=== PATIENT | female | born 1955 | race Caucasian/White ===

== ENCOUNTER 2022-09-19 11:31 | Emergency (ER) | payer MEDICARE, SELFPAY ==
--- NOTE | 2022-09-19 11:35 | ED.BACK ---
HPI - Back Pain/Injury General Chief Complaint: Back Pain/Injury Stated Complaint: Pain in back, post surgery Time Seen by Provider: 09/19/22 12:55 Source: patient and RN notes reviewed Mode of arrival: ambulatory Limitations: no limitations History of Present Illness HPI Narrative: 66-year-old female presents concern for back pain. She reports she had back pain that began on August 31 after she picked up a jar of coins. 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 She reports she has been seen in another urgent care and other ER for this back pain, she was given muscle relaxer that she said did not help then she was given steroids that she said did not help. During these visits she had an x-ray and a CT scan respectively. She reports those did not show any cause for her pain. She reports the pain is ?relentless? she reports the pain is right thoracic. She reports she can find positions that are comfortable, she still has pain but it is not as severe. She denies any direct trauma, injury. She denies cough or shortness of breath. She denies perianal anesthesia, loss of bowel or bladder function. Patient is from [place], she is here for visiting for quite some time, she does not have a primary care doctor here. MD elicited complaint: back pain Related Data Home Medications Medication Instructions Recorded Confirmed Caltrate 09/19/22 Centrum Silver Women 09/19/22 amiodarone 200 mg tablet mg 09/19/22 apixaban 5 mg tablet (Eliquis) mg 09/19/22 aspirin 81 mg tablet,delayed mg 09/19/22 release atorvastatin 09/19/22 09/19/22 buspirone 5 mg tablet mg 09/19/22 clopidogrel 75 mg tablet mg 09/19/22 diazepam 5 mg tablet mg 09/19/22 fluticasone furoate 100 inhalation 09/19/22 mcg-vilanterol 25 mcg/dose inhalation powder (Breo Ellipta) furosemide 40 mg tablet mg 09/19/22 metoprolol succinate 25 mg mg PO 09/19/22 tablet,extended release 24 hr potassium 09/19/22 Allergies Allergy/AdvReac Type Severity Reaction Status Date / Time MICHAELLE Inhibitors Allergy Unknown Unknown Verified 09/19/22 11:35 Review of Systems Review of Systems: CONSTITUTIONAL: Denies malaise, chills, sweats, or fever. CARDIOVASCULAR: Denies chest pain, palpitations, or edema. RESPIRATORY: Denies cough or dyspnea. GASTROINTESTINAL: Denies abdominal pain, nausea, vomiting, diarrhea, loss of bowel function GENITOURINARY: Denies dysuria, hematuria, frequency, loss of bladder function. SKIN: Denies rash or itching. MUSCULOSKELETAL: Reports mid right back pain NEUROLOGIC: Denies numbness, weakness, or headache. All systems reviewed & are unremarkable except as noted in HPI and below [facility] Family History Family History (Updated 01/11/14 @ 07:13 by DOCTOR UNKNOWN) Father Family history of heart disease in male family member before age 55 Family history of coronary artery disease Sibling Hypertension Other Cerebrovascular accident Social History Social History Alcohol intake: current Comments At time of signature, agree with nursing past medical, surgical, social and family history. There is no relevant family history pertinent to the presenting complaint Exam Narrative: GENERAL: Nontoxic appearing and in no acute distress. HEAD: Normocephalic, atraumatic. EYES: PERRLA and EOMI. NECK: Supple. No lymphadenopathy. CHEST: Clear to auscultation. No respiratory distress. HEART: Regular rate and rhythm. Distal pulses palpable and equal, cap refill <3 seconds ABDOMEN: Soft, nontender, nondistended, normal active bowel sounds, no palpable or pulsatile masses. No CVA tenderness MUSCULOSKELETAL: Patient is not cooperative enough to do full exam, she says she is unable to because of her pain. However patient was observed sitting up from a lying position, then standing up in using her walker to
[2022-09-19 11:54] VITALS: BP 103/54; PULSE 80; RESP 16; TEMP 37.3; O2SAT 95
== END 2022-09-19 13:11 | disposition home or self-care (01) ==
PROVIDERS: Emergency Provider Nurse Practitioner
DX: M54.9 Dorsalgia, unspecified (principal); Z98.890 Other specified postprocedural states
CPT/HCPCS: 99213; G0463

== ENCOUNTER 2022-12-12 10:54 | Outpatient (CLI) | payer MEDICARE, SELFPAY ==
[2022-12-12 11:16] LABS: Basophils Percent Auto 0.6 % (0.2-1.2); Eosinophils Percent Auto 0.8 % (0-4.4); Immature Granulocyte Absolute 0.01 K/mm3 (0.00-0.031); Immature Granulocyte Percent A 0.2 % (0-0.5); Lymphocytes Absolute Auto 1.06 K/mm3 (0.9-3.2); Lymphocytes Percent Auto 20.9 % (18.3-44.2); Mean Corpuscular Hemoglobin 18.1 pg (26-34); Mean Corpuscular Volume 72.6 fl (80-100); Mean Platelet Volume 9.8 fl (7.4-10.4); Monocytes Absolute Auto 0.6 K/mm3 (0.1-0.6); Monocytes Percent Auto 11.4 % (2.6-8.5); Neutrophils Absolute Auto 3.4 K/mm3 (1.3-6.7); Neutrophils Percent Auto 66.1 % (45.5-73.1); Nucleated Red Blood Cells Perc 0.4 % (0.0-0.2); Platelet Count Result 261 k/mm3 (150-375); Red Cell Distribution Width 18.2 % (11.5-14.5); White Blood Count 5.1 K/mm3 (4.5-10.0)
[2022-12-12 11:30] LABS: Anion Gap 8 mmol/L (8-16); Blood Urea Nitrogen 13 mg/dL (7-17); Calcium 8.4 mg/dL (8.4-10.2); Carbon Dioxide 25 mmol/L (22-30); Chloride 102 mmol/L (98-107); Estimated Glomerular Filt Rate > 60; Glucose 90 mg/dL (65-110); Potassium 3.8 mmol/L (3.4-5.0); Sodium 135 mmol/L (137-145)
[2022-12-12 11:41] LABS: Hematocrit 19.6 % (37.0-47.0); Hemoglobin 4.9 g/dL (12.0-15.0)
[2022-12-12 11:42] LABS: Platelet Estimate Adequate (Adequate)
[2022-12-12 11:43] LABS: Anisocytosis 1+ (NORMAL); Hypochromasia 2+ (NORMAL); Microcytosis 2+ (NORMAL); Schistocytes None Seen (NORMAL); Stomatocytes 1+ (NORMAL)
== END 2022-12-12 10:55 | disposition home or self-care (01) ==
PROVIDERS: PCP Physician Assistant; Visit Provider Internal Medicine Cardiovascular Disease
DX: I48.0 Paroxysmal atrial fibrillation (principal); Z79.01 Long term (current) use of anticoagulants; Z79.890 Hormone replacement therapy
CPT/HCPCS: 36415; 80048; 85025

== ENCOUNTER 2022-12-12 13:23 | Inpatient (IN) | payer MEDICARE, SELFPAY ==
[2022-12-12] VITALS (32 sets, daily range): BP systolic 106–166; BP diastolic 52–88; PULSE 58–76; RESP 13–21; TEMP 36.1–36.7; O2SAT 94–100; BMI 21.1
--- NOTE | ~2022-12-12 | CT_ITS ---
EXAMINATION: CT abdomen pelvis w con DATE: 12/12/2022 14:50 INDICATION: LGIB, constipation, anemia, weakness TECHNIQUE: Computed tomography (CT) of the abdomen and pelvis was performed with 100 mL Omnipaque-350 intravenous contrast. Automated exposure control and iterative reconstruction technique were employe d. The dose-length product was 178.99 mGy-cm. COMPARISON: 08/02/2011. FINDINGS: Lower thorax: Lingular scar/atelectasis. Mild bibasilar dependent scar/atelectasis. Mitral valve repl acement. Mild cardiomegaly. Liver: Normal. Biliary/Gallbladder: Gallbladder is normal. No bile duct dilation. Pancreas: No mass or duct dilation. Spleen: Normal. Adrenals:No mass. Kidneys: No mass, stone, or hydronephrosis. GI tract: Mild distal esophageal and gastric wall edema. No small or large bowel dilation. Appendix n ot visualized. Diverticulosis without diverticulitis. Mesentery/Peritoneum: No ascites, mass, or free air. Retroperitoneum: No mass. Atherosclerotic abdominal aortic and/or arterial calcifications. Pelvis: Uterus surgically absent. Wall thickening in a moderately distended urinary bladder. Soft Tissues: Small uncomplicated fat-containing infraumbilical and bilateral inguinal hernias. Bones: No acute osseous finding. IMPRESSION: Esophagitis/gastritis. Possible cystitis. No other acute abdominopelvic process detected. Reviewed, dictated and finalized at location K.
--- NOTE | 2022-12-12 13:33 | ECG_ITS ---
Measurements Intervals [place] Rate: 64 P: 60 PA: 157 QRS: 30 QRSD: 92 T: -1 QT: 454 QTc: 471 Interpretive Statements SINUS RHYTHM NONSPECIFIC ST & T-WAVE ABNORMALITY- ANT/INF LEADS BORDERLINE ECG NO PREVIOUS ECG AVAILABLE FOR COMPARISON Electronically Signed On 12-12-2022 17:31:04 CDT by Jose White D.O.
[2022-12-12 14:04] LABS: Basophils Percent Auto 0.3 % (0.2-1.2); Eosinophils Percent Auto 0.3 % (0-4.4); Immature Granulocyte Absolute 0.03 K/mm3 (0.00-0.031); Immature Granulocyte Percent A 0.5 % (0-0.5); Lymphocytes Absolute Auto 0.94 K/mm3 (0.9-3.2); Lymphocytes Percent Auto 16.4 % (18.3-44.2); Mean Corpuscular HGB Conc 25.9 g/dl (32-36); Mean Corpuscular Hemoglobin 18.8 pg (26-34); Mean Corpuscular Volume 72.5 fl (80-100); Mean Platelet Volume 10.1 fl (7.4-10.4); Monocytes Absolute Auto 0.5 K/mm3 (0.1-0.6); Monocytes Percent Auto 8.9 % (2.6-8.5); Neutrophils Absolute Auto 4.2 K/mm3 (1.3-6.7); Neutrophils Percent Auto 73.6 % (45.5-73.1); Nucleated Red Blood Cells Perc 0.3 % (0.0-0.2); Platelet Count Result 251 k/mm3 (150-375); Red Cell Distribution Width 18.3 % (11.5-14.5); White Blood Count 5.7 K/mm3 (4.5-10.0)
[2022-12-12 14:14] LABS: INR 1.4; Prothrombin Time 17.6 Seconds (11.1-14.7)
[2022-12-12 14:15] LABS: Partial Thromboplastin Time 28.7 SECONDS (22.3-36.8)
[2022-12-12 14:16] LABS: Alanine Aminotransferase 39 U/L (6-35); Alkaline Phosphatase 73 U/L (38-126); Anion Gap 9 mmol/L (8-16); Aspartate Amino Transferase 56 U/L (14-36); Bilirubin,Total 0.6 mg/dL (0.2-1.3); Blood Urea Nitrogen 13 mg/dL (7-17); Calcium 8.3 mg/dL (8.4-10.2); Carbon Dioxide 24 mmol/L (22-30); Chloride 102 mmol/L (98-107); Estimated CRCL calculation 48 ml/min; Estimated Glomerular Filt Rate > 60; Glucose 103 mg/dL (65-110); Potassium 4.1 mmol/L (3.4-5.0); Sodium 135 mmol/L (137-145)
[2022-12-12 14:19] LABS: Hemoglobin 4.5 g/dL (12.0-15.0)
[2022-12-12 14:20] LABS: Anisocytosis 2+ (NORMAL); Hematocrit 17.4 % (37.0-47.0); Hypochromasia 2+ (NORMAL); Microcytosis 2+ (NORMAL); Platelet Estimate Adequate (Adequate)
[2022-12-12 14:21] LABS: Ovalocytes 1+ (NORMAL); Schistocytes None Seen (NORMAL)
--- NOTE | 2022-12-12 15:04 | ED.RECABL ---
HPI - Recheck/Abnormal Lab/Rx General Chief Complaint: Recheck/Abnormal Lab/Rx Stated Complaint: severe anemia Time Seen by Provider: 12/12/22 13:42 History of Present Illness HPI narrative: I received a call from Dr Padron for patient he was sending to the ER w/ Hgb 4.9. She tells me that for the last few months, she has been feeling more weak and tired and unwell, with some shortness of breath, she had had CABG and aortic valve replacement at outside hospital about 2 years ago, and constipation. She also has chronic back pain and she states that she has gone to multiple different ERs and urgent cares for the back pain. No nausea or vomiting, does not think that her stool has been dark but does state that she has had constipation despite trying Ex-Lax Related Data Home Medications Medication Instructions Recorded Confirmed Caltrate 09/19/22 10/14/22 Centrum Silver Women 09/19/22 10/14/22 amiodarone 200 mg tablet mg 09/19/22 10/14/22 apixaban 5 mg tablet (Eliquis) mg 09/19/22 10/14/22 aspirin 81 mg tablet,delayed mg 09/19/22 10/14/22 release clopidogrel 75 mg tablet mg 09/19/22 10/14/22 diazepam 5 mg tablet mg 09/19/22 10/14/22 furosemide 40 mg tablet mg 09/19/22 10/14/22 metoprolol succinate 25 mg mg PO 09/19/22 10/14/22 tablet,extended release 24 hr potassium 09/19/22 10/14/22 atorvastatin PO 10/14/22 10/14/22 Allergies Allergy/AdvReac Type Severity Reaction Status Date / Time MICHAELLE Inhibitors Allergy Unknown Unknown Verified 10/14/22 13:32 Review of Systems Review of Systems: CONST: Fatigue and generalized weakness HEENT: No sore throat C/V: No chest pain RESP: Shortness of breath on exertion GI: Constipation : No dysuria. M/S: No joint pain. SKIN: No rash. NEURO: [No headache or focal numbness or weakness] PSYCH: [No depression] [facility] Past Medical History Medical History Anxiety Hypertension Family History Family History Father Family history of heart disease in male family member before age 55 Family history of coronary artery disease Sibling Hypertension Other Cerebrovascular accident Social History Social History Smoking packs per day: 1.5 Smoking cigarettes per day: 30.0 Smoking status: Current every day smoker Alcohol intake: former Substance use: unknown Lack of Transportation: YES Lack of Food: Sometimes True Difficulty Paying Gas/Electric Bills: No Difficulty Paying for Meds: No Currently Unemployed: No Education: High School Diploma/GED Difficulty w/ Childcare or Family Care: No Exam Narrative: EXAMINATION OF ORGAN SYSTEMS/BODY AREAS: Constitutional: Vital signs per nursing GENERAL: Appears pale and tired HEAD: Normal with no signs of head trauma. EYES: Pale conjunctiva ENT: Pale mucous membranes LUNGS: Nonlabored breathing. HEART: [Regular rate and rhythm] ABD: [Soft], [nontender to palpation] RECTAL: Brown stool that is hemoccult positive EXT: Normal range of motion SKIN: Pallor NEURO: [Alert and oriented x 3. No gross focal sensory or strength deficits.] PSYCH: Normal affect Course Vital Signs Vital signs: Vital Signs Temperature 97.8 F 12/12/22 13:26 Respiratory Rate 16 12/12/22 13:26 Blood Pressure 125/52 L 12/12/22 13:26 Pulse Oximetry 100 12/12/22 13:26 Oxygen Delivery Room Air 12/12/22 13:26 Temperature 97.2 F L 12/12/22 15:58 Pulse Rate 63 12/12/22 17:26 Respiratory Rate 20 12/12/22 17:26 Blood Pressure 138/70 12/12/22 17:26 Pulse Oximetry 96 12/12/22 17:26 Oxygen Delivery Room Air 12/12/22 13:26 MDM - Recheck/Abnormal Lab/Rx MDM Narrative Medical decision making narrative: 67-year-old female presenting here after being found to have low hemoglobin, she tells me that she has been noticing constipation and general
[2022-12-12] MEDS: PANTOPRAZOLE SODIUM IV 40 MG VIAL IV PUSH (15:36)
[2022-12-12] MEDS: SODIUM CHLORIDE 0.9% IV 250 ML 30 ML IV CONT (15:37)
--- NOTE | 2022-12-12 16:02 | PM.IMHP ---
H&P: HPI History of Present Illness Date/Time: 12/12/22 19:45 Chief Complaint: Low hemoglobin. Narrative: This is a pleasant 67-year-old female smoker with history of 2 vessel bypass and bioprosthetic mitral valve replacement 2 years ago, paroxysmal atrial fibrillation on chronic anticoagulation, chronic obstructive pulmonary disease, depression, and anxiety who presented to the emergency department for evaluation after she was found to have low hemoglobin on labs drawn earlier this morning. The patient provides the following history. She recently moved to the area and established care with Dr. Schulz's office. She was referred to Dr. Padron given her cardiac history and she had routine labs done this morning in anticipation of an upcoming appointment. Not long after she had her lab drawn she received a phone call that she needed to come to the ER as she was very anemic. Hemoglobin/hematocrit on arrival today were 4.5 and 17.4% respectively. With further questioning she has not been feeling well for several months with generalized fatigue, weakness, and increasing shortness of breath from baseline. She has not noticed any dark stools and fact she complains of being a bit constipated. She has not noticed any dark stools or bright red blood in the stools. She does have occasional GERD symptoms and reports that they have been much worse the last several weeks and she has been taking Tums on a daily basis. She is on apixaban and clopidogrel at home. She denies ibuprofen use. No significant caffeine or alcohol use. She has no known history of peptic ulcers. At the time my evaluation she is resting comfortably and is currently receiving her 3rd unit of blood. She feels may be a bit short of breath and has mild crackles on exam. Review of Systems Review of Systems: Twelve systems were reviewed. No fever, chills, sweats. No recent cold or flu symptoms. No chest pain. She denies vomiting. Except as documented, all other systems were reviewed and are negative. [facility] Past Medical History Medical History (Updated 12/13/22 @ 15:29 by Hannah Wong PA-C) Anxiety Chronic anticoagulation Chronic obstructive pulmonary disease Coronary artery disease Hypertension Paroxysmal atrial fibrillation Tobacco dependence Surgical History Surgical History (Updated 12/12/22 @ 23:42 by Hannah Wong PA-C) History of cardiac catheterization History of coronary artery bypass graft x 2 History of incisional hernia repair (09/2011) History of mitral valve replacement with bioprosthetic valve History of stress incontinence procedure using tension free vaginal tape (2002) History of tonsillectomy History of total abdominal hysterectomy and bilateral salpingo-oophorectomy (2002) History of tubal ligation Family History Family History Father Family history of heart disease in male family member before age 55 Family history of coronary artery disease Sibling Hypertension Other Cerebrovascular accident Social History Social History (Updated 12/12/22 @ 23:41 by Hannah Wong PA-C) Social History: Surrogate medical decision maker: Codi Calle, son. Code status: Full code. Smoking packs per day: 1.5 Smoking cigarettes per day: 30.0 Smoking status: Current every day smoker Additional smoking assessment comments: Has smoked up to 2 packs a day. Alcohol intake: former Substance use: never Lack of Transportation: YES Lack of Food: Never True Current Housing: I Have Housing Concerned About Future Housing: No Difficulty Paying Gas/Electric Bills: No Difficulty Paying for Meds: No Currently Unemployed: No Education: High School Diploma/GED Difficulty w/ Childcare or Family Care: No Additional living arrangements comments: Recently moved back to the area, currently staying with her ex-. Spiritual care concerns: No Meds Home Medications
[2022-12-12 16:09] LABS: Iron 16 ug/dL (37-170)
[2022-12-12 16:18] LABS: Percent Iron Saturation 3 % (20-50)
[2022-12-12 16:45] LABS: Ferritin 7.45 ng/mL (11.1-264)
[2022-12-12 17:20] LABS: Folic Acid > 20.0 ng/mL (2.76->20)
--- NOTE | 2022-12-12 18:00 | ADMGEN ---
This patient, Maci Garcia, was admitted to Medical Room 253-01. Patient/family oriented to hospital policies and general routines including ID bracelet, bed and alarms, visiting hours, pain management, procedures, bathroom and other care routines, personal items, smoking policy, room service/diet, and visiting hours. Information on how to activate the Rapid Response Team has been discussed. Patient/Family are encouraged to report perceived risks to care and to ask questions if they do not understand what they are told or what they should do.
[2022-12-12] MEDS: ZOLPIDEM TARTRATE (*CRX) 5 MG TABLET PO (23:10)
[2022-12-12] MEDS: ACETAMINOPHEN 325 MG TABLET 650 MG PO (23:10)
[2022-12-12] MEDS: FUROSEMIDE INJ 40 MG/4 ML VIAL 20 MG IV PUSH (23:10)
[2022-12-12] MEDS: ATORVASTATIN 40 MG TABLET 80 MG PO (23:11)
[2022-12-13] VITALS (7 sets, daily range): BP systolic 102–147; BP diastolic 61–88; PULSE 62–80; RESP 17–22; TEMP 36.2–37.1; O2SAT 98–100
[2022-12-13 00:40] LABS: Appearance Urine Clear (Clear); Bacteria Urine None Seen /hpf; Bilirubin Urine Negative (Negative); Blood Urine Negative (Negative); Color Urine Yellow (Yellow); Glucose Urine UA Negative (Negative); Ketones Urine Trace mg/dL (Negative); Leukocyte Esterase Ur 1+ LEU/UL (Negative); Nitrate Urine Negative (Negative); Non Pathogenic Casts 0-2; Protein Urine Negative (Negative); RBC Urine 0-2 /hpf (0-2); Squamous Epithelial Cell Urine None seen /hpf (Few); WBC Urine 21-50 /hpf; pH Urine 6.5 (5.0-9.0)
[2022-12-13 00:42] LABS: Specific Grav Ur 1.073 (1.001-1.035)
[2022-12-13] MEDS: LORazepam INJ (*CRX) 2 MG/ML VIAL 1 MG IV PUSH (00:46)
[2022-12-13 01:08] LABS: Add Urine Microscopic? YES
[2022-12-13 02:17] LABS: Hematocrit 36.1 % (37.0-47.0); Hemoglobin 10.7 g/dL (12.0-15.0); Mean Corpuscular HGB Conc 29.6 g/dl (32-36); Mean Corpuscular Hemoglobin 24.1 pg (26-34); Mean Corpuscular Volume 81.3 fl (80-100); Platelet Count Result 213 k/mm3 (150-375); Red Blood Count 4.44 M/mm3 (4.2-5.4); Red Cell Distribution Width 19.2 % (11.5-14.5); White Blood Count 8.8 K/mm3 (4.5-10.0)
[2022-12-13 02:30] LABS: Alanine Aminotransferase 43 U/L (6-35); Alkaline Phosphatase 90 U/L (38-126); Anion Gap 8 mmol/L (8-16); Aspartate Amino Transferase 62 U/L (14-36); Bilirubin,Total 0.7 mg/dL (0.2-1.3); Blood Urea Nitrogen 12 mg/dL (7-17); Calcium 8.1 mg/dL (8.4-10.2); Carbon Dioxide 26 mmol/L (22-30); Chloride 102 mmol/L (98-107); Estimated CRCL calculation 49 ml/min; Estimated Glomerular Filt Rate > 60; Glucose 131 mg/dL (65-110); Magnesium 1.9 mg/dL (1.6-2.3); Potassium 3.4 mmol/L (3.4-5.0); Sodium 136 mmol/L (137-145)
[2022-12-13 04:31] LABS: Free T4 Free Thyroxine Reflex 1.86 ng/dL (0.78-2.19)
--- NOTE | 2022-12-13 07:38 | PM.IMPN ---
Progress Note: A&P Assessment and Plan (1) GI bleed: Code(s): K92.2 - Gastrointestinal hemorrhage, unspecified Status: Acute Assessment and Plan: Hemoglobin 4.9/ hematocrit 19.6 on admission -shortness of breath, weakness, and fatigue present -received 3 units of pRBC -On xarelto and plavix at home. Holding currently. -No overt signs of bleeding but complains of increased GERD symptoms of the last month or so with increased TUMS usage. -says she intermittently uses Aleve and Excedrin for chronic back pain. Discussed NSAIDs and risk of GI bleed. -Consult placed with GI. Plan for scope tomorrow -Trend H/H -VS reviewed and stable (2) Profound anemia: Code(s): D64.9 - Anemia, unspecified Status: Acute Assessment and Plan: Pre-transfusion labs for anemia: Fe 16 TIBC 544 % Saturation 3L Ferritin 7.45 Folate > 20 Vitamin B12 normal at 721 (3) Esophagitis: Code(s): K20.90 - Esophagitis, unspecified without bleeding Status: Acute Assessment and Plan: Protonix 40 mg IV b.i.d. ordered (4) Coronary artery disease: Code(s): I25.10 - Atherosclerotic heart disease of [place] coronary artery without angina pectoris Status: Acute Assessment and Plan: On high-dose atorvastatin Check a lipid panel (5) Paroxysmal atrial fibrillation: Code(s): I48.0 - Paroxysmal atrial fibrillation Status: Acute Assessment and Plan: Rate controlled with metoprolol and anticoagulated with Eliquis (Eliquis on hold because of bleeding) (6) Chronic obstructive pulmonary disease: Code(s): J44.9 - Chronic obstructive pulmonary disease, unspecified Status: Acute Assessment and Plan: Does not normally use oxygen Well controlled With inhalers ordered (7) Tobacco dependence: Code(s): F17.200 - Nicotine dependence, unspecified, uncomplicated Status: Acute Assessment and Plan: Can order nicotine patch if patient request [employer] on cessation Subjective Date/time seen: 12/13/22 07:38 Interval history: HPI from chart Chief Complaint: Low hemoglobin. Narrative: This is a pleasant 67-year-old female smoker with history of 2 vessel bypass and bioprosthetic mitral valve replacement 2 years ago, paroxysmal atrial fibrillation on chronic anticoagulation, chronic obstructive pulmonary disease, depression, and anxiety who presented to the emergency department for evaluation after she was found to have low hemoglobin on labs drawn earlier this morning. The patient provides the following history. She recently moved to the area and established care with Dr. Schulz's office. She was referred to Dr. Padron given her cardiac history and she had routine labs done this morning in anticipation of an upcoming appointment. Not long after she had her lab tests drawn she received a phone call that she needed to come to the ER as she was very anemic. Hemoglobin hematocrit on arrival today were 4.5 and 17.4% respectively. With further questioning she has not been feeling well for several months with generalized fatigue, weakness, and increasing shortness of breath from baseline. She has not noticed any dark stools and fact she complains of being a bit constipated. She does have occasional GERD symptoms and reports that they have been much worse the last several weeks and she has been taking Tums on a daily basis. She is on apixaban and clopidogrel at home. She denies ibuprofen use.? No significant caffeine or alcohol use. She has no known history of peptic ulcers. At the time my evaluation she is resting comfortably and is currently receiving her 3rd unit of blood. She feels may be a bit short of breath and has mild crackles on exam. Interval history: 12/13: Very pleasant lady seen resting in bed today. She says she had a rough night in the sense that she was receiving a lot of blood products and did not feel very well and she had a couple garner
[2022-12-13] MEDS: FLUTICASONE/UMECLIDIN/VILANTER 100-62.5-25 MCG ELLIPTA 1 PUFF INHALATION (08:00)
[2022-12-13] MEDS: AMIODARONE HCL 200 MG TABLET PO (08:29)
[2022-12-13] MEDS: METOPROLOL SUCCINATE EXT REL 12.5 MG TABCR PO (08:31)
[2022-12-13] MEDS: FUROSEMIDE 40 MG TABLET PO (08:31)
[2022-12-13] MEDS: ESCITALOPRAM OXALATE 10 MG TABLET PO (08:31)
[2022-12-13] MEDS: busPIRone HCL 5 MG TABLET PO (08:31)
[2022-12-13] MEDS: PANTOPRAZOLE SODIUM IV 40 MG VIAL IV PUSH ×2 (08:32→20:21)
--- NOTE | 2022-12-13 11:44 | WPDGICN ---
Assessment and Plan Assessment and plan (1) Profound anemia: Code(s): D64.9 - Anemia, unspecified Status: Acute Assessment and Plan: this is in setting of chronic anticoagulation- on hold now will give bowel prep and tomorrow proceed with egd/colonoscopy noted that CT Scan showed possible esophagitis/gastritis patient denies obvious gib (2) Esophagitis: Code(s): K20.90 - Esophagitis, unspecified without bleeding Status: Acute Assessment and Plan: gerd symptoms iv protonix and will investigate with egd (3) Paroxysmal atrial fibrillation: Code(s): I48.0 - Paroxysmal atrial fibrillation Status: Acute (4) Coronary artery disease: Code(s): I25.10 - Atherosclerotic heart disease of [place] coronary artery without angina pectoris Status: Acute (5) Chronic anticoagulation: Code(s): Z79.01 - half-way (current) use of anticoagulants Status: Acute Assessment and Plan: on hold for now (6) Abnormal CT scan, esophagus: Code(s): R93.3 - Abnormal findings on diagnostic imaging of other parts of digestive tract Status: Acute GI Consult Note Consult date/time: 12/13/22 11:44 Reason for consult: symptomatic anemia. HPI: Maci Garcia is a 67 year old female with history of tobacco use, 2 vessel bypass and bioprosthetic mitral valve replacement on plavix, paroxysmal atrial fibrillation on eliquis, chronic obstructive pulmonary disease, depression who presented to the emergency department for evaluation after she was found to have low hemoglobin on labs. She has been feeling more tired and fatigue than usual, no overt gib but noted easy bruising and bleeding in arms since using eliquis. She received a call from her doctor office and was instructed to come to ER given severe anemia. Hemoglobin hematocrit yesterday were 4.5 and 17.4% respectively. Never had colonoscopy. Review of Systems Constitutional: Constitutional: Reports fatigue and Reports lethargy Eyes: Eyes: Denies blurry vision ENT: Reports Normal hearing present Cardiovascular: Cardiovascular: Denies chest pain Respiratory: Respiratory: Reports dyspnea on exertion Gastrointestinal: Gastrointestinal: Denies abdominal pain and Denies melena Genitourinary: Genitourinary: Denies urinary urgency Musculoskeletal: Musculoskeletal: Denies back pain Integumentary/Breasts: Skin/Breast: Denies rash Neurologic: Denies confusion Psychiatric: Psychiatric: Denies behavioral changes PMFSH Past Medical History Medical History (Updated 12/13/22 @ 11:50 by Ronen Ott MD) Abnormal CT scan, esophagus Anxiety Chronic anticoagulation Chronic obstructive pulmonary disease Coronary artery disease Hypertension Paroxysmal atrial fibrillation Tobacco dependence Surgical History Surgical History (Updated 12/12/22 @ 23:42 by Hannah Wong PA-C) History of cardiac catheterization History of coronary artery bypass graft x 2 History of incisional hernia repair (09/2011) History of mitral valve replacement with bioprosthetic valve History of stress incontinence procedure using tension free vaginal tape (2002) History of tonsillectomy History of total abdominal hysterectomy and bilateral salpingo-oophorectomy (2002) History of tubal ligation Family History Family History Father Family history of heart disease in male family member before age 55 Family history of coronary artery disease Sibling Hypertension Other Cerebrovascular accident Social History Social History (Updated 12/12/22 @ 23:41 by Hannah Wong PA-C) Social History: Surrogate medical decision maker: Codi Calle, son. Code status: Full code. Smoking packs per day: 1.5 Smoking cigarettes per day: 30.0 Smoking status: Current every day smoker Additional smoking assessment comments: Has smoked up to 2 packs a day. Alcoh
[2022-12-13] MEDS: ACETAMINOPHEN 325 MG TABLET 650 MG PO ×2 (13:40→20:20)
[2022-12-13 16:51] LABS: Basophils Absolute Auto 0.1 K/mm3 (0.0-0.1); Basophils Percent Auto 0.7 % (0.2-1.2); Eosinophils Absolute Auto 0.1 K/mm3 (0-0.3); Eosinophils Percent Auto 1.4 % (0-4.4); Hematocrit 35.8 % (37.0-47.0); Hemoglobin 10.8 g/dL (12.0-15.0); Immature Granulocyte Absolute 0.04 K/mm3 (0.00-0.031); Immature Granulocyte Percent A 0.5 % (0-0.5); Lymphocytes Absolute Auto 1.29 K/mm3 (0.9-3.2); Mean Corpuscular HGB Conc 30.2 g/dl (32-36); Mean Corpuscular Hemoglobin 24.5 pg (26-34); Mean Corpuscular Volume 81.2 fl (80-100); Mean Platelet Volume 9.8 fl (7.4-10.4); Neutrophils Absolute Auto 6.1 K/mm3 (1.3-6.7); Neutrophils Percent Auto 70.4 % (45.5-73.1); Nucleated Red Blood Cells Perc 0.3 % (0.0-0.2); Platelet Count Result 212 k/mm3 (150-375); Red Blood Count 4.41 M/mm3 (4.2-5.4); Red Cell Distribution Width 19.8 % (11.5-14.5); White Blood Count 8.6 K/mm3 (4.5-10.0)
[2022-12-13 17:18] LABS: Anion Gap 5 mmol/L (8-16); Blood Urea Nitrogen 8 mg/dL (7-17); Calcium 7.9 mg/dL (8.4-10.2); Carbon Dioxide 26 mmol/L (22-30); Chloride 99 mmol/L (98-107); Estimated CRCL calculation 57 ml/min; Estimated Glomerular Filt Rate > 60; Glucose 102 mg/dL (65-110); Potassium 2.8 mmol/L (3.4-5.0); Sodium 130 mmol/L (137-145)
[2022-12-13] MEDS: POTASSIUM CHLORIDE 20 MEQ PACKET (FOR LIQUID) 80 MEQ PO (17:56)
[2022-12-13] MEDS: polyethylene glycoL 3350 238 GM BOTTLE PO (17:58)
[2022-12-13] MEDS: BISACODYL 5 MG TABLET EC 20 MG PO (17:58)
[2022-12-13 19:17] LABS: Total Triiodothyronine (T3) 0.67 NG/ML (0.97-1.69)
[2022-12-13] MEDS: ATORVASTATIN 40 MG TABLET 80 MG PO (20:20)
[2022-12-14] VITALS (11 sets, daily range): BP systolic 100–139; BP diastolic 55–86; PULSE 53–74; RESP 14–22; TEMP 36.2–36.6; O2SAT 93–100
[2022-12-14 05:59] LABS: Basophils Percent Auto 0.5 % (0.2-1.2); Eosinophils Absolute Auto 0.2 K/mm3 (0-0.3); Eosinophils Percent Auto 2.6 % (0-4.4); Hematocrit 36.9 % (37.0-47.0); Hemoglobin 10.9 g/dL (12.0-15.0); Immature Granulocyte Absolute 0.01 K/mm3 (0.00-0.031); Immature Granulocyte Percent A 0.2 % (0-0.5); Lymphocytes Absolute Auto 1.24 K/mm3 (0.9-3.2); Lymphocytes Percent Auto 20.4 % (18.3-44.2); Mean Corpuscular HGB Conc 29.5 g/dl (32-36); Mean Corpuscular Hemoglobin 24.1 pg (26-34); Mean Corpuscular Volume 81.6 fl (80-100); Mean Platelet Volume 9.9 fl (7.4-10.4); Monocytes Absolute Auto 0.8 K/mm3 (0.1-0.6); Monocytes Percent Auto 13.2 % (2.6-8.5); Neutrophils Absolute Auto 3.8 K/mm3 (1.3-6.7); Neutrophils Percent Auto 63.1 % (45.5-73.1); Platelet Count Result 196 k/mm3 (150-375); Red Blood Count 4.52 M/mm3 (4.2-5.4); Red Cell Distribution Width 20.2 % (11.5-14.5); White Blood Count 6.1 K/mm3 (4.5-10.0)
[2022-12-14 06:09] LABS: Alanine Aminotransferase 38 U/L (6-35); Albumin Level 3.4 g/dL (3.5-5.1); Alkaline Phosphatase 64 U/L (38-126); Anion Gap 3 mmol/L (8-16); Aspartate Amino Transferase 60 U/L (14-36); Bilirubin,Total 0.8 mg/dL (0.2-1.3); Blood Urea Nitrogen 4 mg/dL (7-17); Calcium 8.1 mg/dL (8.4-10.2); Carbon Dioxide 26 mmol/L (22-30); Chloride 101 mmol/L (98-107); Estimated CRCL calculation 67 ml/min; Estimated Glomerular Filt Rate > 60; Glucose 86 mg/dL (65-110); Potassium 4.1 mmol/L (3.4-5.0); Sodium 130 mmol/L (137-145)
[2022-12-14 06:12] LABS: INR 1.1; Prothrombin Time 14.3 Seconds (11.1-14.7)
[2022-12-14 06:13] LABS: Partial Thromboplastin Time 24.8 SECONDS (22.3-36.8)
--- NOTE | 2022-12-14 07:03 | PM.IMPN ---
Progress Note: A&P Assessment and Plan (1) GI bleed: Code(s): K92.2 - Gastrointestinal hemorrhage, unspecified Status: Acute Assessment and Plan: Hemoglobin 4.9/ hematocrit 19.6 on admission -shortness of breath, weakness, and fatigue present -received 3 units of pRBC -On xarelto and plavix at home. Holding currently. -No overt signs of bleeding but complains of increased GERD symptoms of the last month or so with increased TUMS usage. -says she intermittently uses Aleve and Excedrin for chronic back pain. Discussed NSAIDs and risk of GI bleed. -Consult placed with GI. Plan for upper and lower scope tomorrow -Trend H/H -VS reviewed and stable (2) Profound anemia: Code(s): D64.9 - Anemia, unspecified Status: Acute Assessment and Plan: Pre-transfusion labs for anemia: Fe 16 TIBC 544 % Saturation 3L Ferritin 7.45 Folate > 20 Vitamin B12 normal at 721 Will start Fe sulfate (3) Esophagitis: Code(s): K20.90 - Esophagitis, unspecified without bleeding Status: Acute Assessment and Plan: Protonix 40 mg IV b.i.d. ordered (4) Coronary artery disease: Code(s): I25.10 - Atherosclerotic heart disease of [place] coronary artery without angina pectoris Status: Acute Assessment and Plan: On high-dose atorvastatin Check a lipid panel (5) Paroxysmal atrial fibrillation: Code(s): I48.0 - Paroxysmal atrial fibrillation Status: Acute Assessment and Plan: Rate controlled with metoprolol and anticoagulated with Eliquis (Eliquis on hold because of bleeding) (6) Chronic obstructive pulmonary disease: Code(s): J44.9 - Chronic obstructive pulmonary disease, unspecified Status: Acute Assessment and Plan: Does not normally use oxygen Well controlled Home inhalers ordered (7) Tobacco dependence: Code(s): F17.200 - Nicotine dependence, unspecified, uncomplicated Status: Acute Assessment and Plan: 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 Expect subclinical hypothyroidism. Will recommend repeat labs with PCP. Trend H/H Subjective Date/time seen: 12/14/22 07:03 Interval history: HPI from chart Chief Complaint: Low hemoglobin. Narrative: This is a pleasant 67-year-old female smoker with history of 2 vessel bypass and bioprosthetic mitral valve replacement 2 years ago, paroxysmal atrial fibrillation on chronic anticoagulation, chronic obstructive pulmonary disease, depression, and anxiety who presented to the emergency department for evaluation after she was found to have low hemoglobin on labs drawn earlier this morning. The patient provides the following history. She recently moved to the area and established care with Dr. Schulz's office. She was referred to Dr. Padron given her cardiac history and she had routine labs done this morning in anticipation of an upcoming appointment. Not long after she had her lab tests drawn she received a phone call that she needed to come to the ER as she was very anemic. Hemoglobin hematocrit on arrival today were 4.5 and 17.4% respectively. With further questioning she has not been feeling well for several months with generalized fatigue, weakness, and increasing shortness of breath from baseline. She has not noticed any dark stools and fact she complains of being a bit constipated. She does have occasional GERD symptoms and reports that they have been much worse the last several weeks and she has been taking Tums on a daily basis. She is on apixaban and clopidogrel at home. She denies ibuprofen use.? No significant caffeine or alcohol use. She has no known history of peptic ulcers. At the time my evaluation she is resting comfortably and is currently receiving her 3rd unit of blood. She feels may be a bit short of breath and has mild crackles on exam. Interval history:
[2022-12-14 07:46] LABS: Platelet Estimate Adequate (Adequate)
[2022-12-14 07:47] LABS: Macrocytosis 1+ (NORMAL); Ovalocytes 1+ (NORMAL); Poikilocytosis 1+ (NORMAL)
[2022-12-14 07:48] LABS: Crenated RBC 1+ (NORMAL); Schistocytes 1+ (NORMAL)
[2022-12-14] MEDS: FERROUS SULFATE 325 MG TABLET DR PO ×2 (08:51→16:10)
[2022-12-14] MEDS: AMIODARONE HCL 200 MG TABLET PO (08:52)
[2022-12-14] MEDS: ESCITALOPRAM OXALATE 10 MG TABLET PO (08:52)
[2022-12-14] MEDS: METOPROLOL SUCCINATE EXT REL 12.5 MG TABCR PO (08:52)
[2022-12-14] MEDS: FUROSEMIDE 40 MG TABLET PO (08:52)
[2022-12-14] MEDS: busPIRone HCL 5 MG TABLET PO (08:52)
[2022-12-14] MEDS: FLUTICASONE/UMECLIDIN/VILANTER 100-62.5-25 MCG ELLIPTA 1 PUFF INHALATION (08:54)
[2022-12-14] MEDS: PANTOPRAZOLE SODIUM IV 40 MG VIAL IV PUSH (08:58)
[2022-12-14] MEDS: ACETAMINOPHEN 325 MG TABLET 650 MG PO ×2 (11:18→20:01)
[2022-12-14] MEDS: GENTAMICIN 80MG/SOD CHL 50 ML 80 MG/50 ML BAG 100 MG IVPB (13:35)
[2022-12-14] MEDS: LACTATED RINGERS 1,000 ML 150 ML IV CONT (13:48)
--- NOTE | 2022-12-14 13:54 | WPDANESEPPF ---
Anes - Initial Pre Proc Eval Procedure: Operation Date: 12/14/22 14:30 Proposed Procedures p Esophagogastroduodenoscopy & Colonoscopy - Ronen Ott MD Date/Time: 12/14/22 13:54 Surgeon: Beronica Anne DO Pre Op Diagnosis: Anemia, LGIB Patient Data Age: 67 Gender: F Height: 1.55 m Weight: 48.1 kg Last Vital Signs Temp 97.1 F L 12/14/22 04:16 Pulse 67 12/14/22 08:54 Resp 18 12/14/22 08:54 BP 117/77 12/14/22 04:16 Pulse Ox 97 12/14/22 08:54 O2 Del Method Room Air 12/14/22 08:54 O2 Flow Rate 2 12/13/22 08:02 FiO2 21 12/14/22 08:54 Allergies Allergy/AdvReac Type Severity Reaction Status Date / Time MICHAELLE Inhibitors Allergy Unknown Unknown Verified 10/14/22 13:32 Home Medications Medication Instructions Recorded Confirmed Type Caltrate 1 tab-cap PO BID 09/19/22 12/12/22 History Centrum Silver Women 1 tab-cap PO DAILY 09/19/22 12/12/22 History amiodarone 200 mg tablet 200 mg PO DAILY 09/19/22 12/12/22 History apixaban 5 mg tablet (Eliquis) 5 mg PO BID 09/19/22 12/12/22 History clopidogrel 75 mg tablet 75 mg PO DAILY 09/19/22 12/12/22 History furosemide 40 mg tablet 40 mg PO QAM 09/19/22 12/12/22 History metoprolol succinate 25 mg 12.5 mg PO QAM 09/19/22 12/12/22 History tablet,extended release 24 hr atorvastatin 80 mg PO HS 10/14/22 12/12/22 History budesonide 160 mcg-glycopyr 9 2 inh inhalation BID #32.1 grams 10/14/22 12/12/22 Rx mcg-formot 4.8 mcg/actuation HFA inhaler (Breztri Aerosphere) escitalopram oxalate 10 mg tablet 10 mg PO DAILY #90 tabs 10/19/22 12/12/22 Rx zolpidem 5 mg tablet 5 mg PO QHS PRN sleep #30 tabs 12/11/22 12/12/22 Rx buspirone 5 mg tablet 5 mg PO DAILY 12/12/22 12/12/22 History fluticasone furoate 100 1 inh inhalation BID 12/12/22 12/12/22 History mcg-vilanterol 25 mcg/dose inhalation powder (Breo Ellipta) Laboratory Tests 12/13/22 12/13/22 12/14/22 02:10 16:26 05:31 WBC 8.6 K/mm3 6.1 K/mm3 (4.5-10.0) (4.5-10.0) RBC 4.41 M/mm3 4.52 M/mm3 (4.2-5.4) (4.2-5.4) Hgb 10.8 L g/dL 10.9 L g/dL (12.0-15.0) (12.0-15.0) Hct 35.8 L % 36.9 L % (37.0-47.0) (37.0-47.0) MCV 81.2 fl 81.6 fl (80-100) (80-100) MCH 24.5 L pg 24.1 L pg (26-34) (26-34) MCHC 30.2 L g/dl 29.5 L g/dl (32-36) (32-36) RDW 19.8 H % 20.2 H % (11.5-14.5) (11.5-14.5) Plt Count 212 k/mm3 196 k/mm3 (150-375) (150-375) MPV 9.8 fl 9.9 fl (7.4-10.4) (7.4-10.4) Immature Gran % (Auto) 0.5 % 0.2 % (0-0.5) (0-0.5) Neut % (Auto) 70.4 % 63.1 % (45.5-73.1) (45.5-73.1) Lymph % (Auto) 15.0 L % 20.4 % (18.3-44.2) (18.3-44.2) [place] % (Auto) 12.0 H % 13.2 H % (2.6-8.5) (2.6-8.5) Eos % (Auto) 1.4 % 2.6 % (0-4.4) (0-4.4) Baso % (Auto) 0.7 % 0.5 % (0.2-1.2) (0.2-1.2) Lymph # (Auto) 1.29 K/mm3 1.24 K/mm3 (0.9-3.2) (0.9-3.2) [place] # (Auto) 1.0 H K/mm3 0.8 H K/mm3 (0.1-0.6) (0.1-0.6) Eos # (Auto) 0.1 K/mm3 0.2 K/mm3 (0-0.3) (0-0.3) Baso # (Auto) 0.1 K/mm3 0.0 K/mm3 (0.0-0.1) (0.0-0.1) Abs Immat Gran (auto) 0.04 H K/mm3 0.01 K/mm3 (0.00-0.031) (0.00-0.031) Absolute Neuts (auto) 6.1 K/mm3 3.8 K/mm3 (1.3-6.7) (1.3-6.7) Absolute Nucleated RBC 0.0 K/mm3 0.0 K/mm3 (0.0-0.012) (0.0-0.012) Nucleated RBC % 0.3 H % 0.0 % (0.0-0.2) (0.0-0.2) Platelet Estimate Adequate (Adequate) Poikilocytosis 1+ (NORMAL) Macrocytosis 1+ (NORMAL) Ovalocytes 1+ (NORMAL) Crenated Cell 1+ (NORMAL) Schistocytes 1+ (NORMAL) PT 14.3 Seconds (11.1-14.7) INR 1.1 APTT 24.8 SECONDS (22.3-36.8) Sodium 130 L mmol/L 130 L mmol/L (137-145) (137-145) Potassium 2.8 L* mmol/L 4.1 mmol/L (3.4-5.0) (3.4-5.0) Chloride
[2022-12-14] MEDS: AMPICILLIN 2 GM/NS 100 ML 2 GM/100 ML BAG IVPB (14:12)
--- NOTE | 2022-12-14 14:36 | SUR.OPER ---
EGD ended at 1430. Colonoscopy began at 1436.
[2022-12-14] MEDS: PANTOPRAZOLE 40 MG TABLET PO (20:01)
[2022-12-14] MEDS: ATORVASTATIN 40 MG TABLET 80 MG PO (20:01)
[2022-12-14] MEDS: ZOLPIDEM TARTRATE (*CRX) 5 MG TABLET PO (20:02)
[2022-12-15] VITALS (8 sets, daily range): BP systolic 105–145; BP diastolic 65–89; PULSE 58–65; RESP 16–20; TEMP 36.4–36.7; O2SAT 96–100
[2022-12-15 05:34] LABS: Basophils Percent Auto 0.6 % (0.2-1.2); Eosinophils Absolute Auto 0.1 K/mm3 (0-0.3); Eosinophils Percent Auto 1.3 % (0-4.4); Hematocrit 38.4 % (37.0-47.0); Hemoglobin 11.2 g/dL (12.0-15.0); Immature Granulocyte Absolute 0.03 K/mm3 (0.00-0.031); Immature Granulocyte Percent A 0.4 % (0-0.5); Lymphocytes Absolute Auto 1.21 K/mm3 (0.9-3.2); Lymphocytes Percent Auto 17.2 % (18.3-44.2); Mean Corpuscular HGB Conc 29.2 g/dl (32-36); Mean Corpuscular Hemoglobin 24.1 pg (26-34); Mean Corpuscular Volume 82.8 fl (80-100); Mean Platelet Volume 10.1 fl (7.4-10.4); Monocytes Absolute Auto 0.7 K/mm3 (0.1-0.6); Monocytes Percent Auto 10.5 % (2.6-8.5); Neutrophils Absolute Auto 4.9 K/mm3 (1.3-6.7); Platelet Count Result 209 k/mm3 (150-375); Red Blood Count 4.64 M/mm3 (4.2-5.4); Red Cell Distribution Width 21.2 % (11.5-14.5); White Blood Count 7.1 K/mm3 (4.5-10.0)
[2022-12-15 05:44] LABS: Anion Gap -1 mmol/L (8-16); Blood Urea Nitrogen 11 mg/dL (7-17); Calcium 8.5 mg/dL (8.4-10.2); Carbon Dioxide 29 mmol/L (22-30); Chloride 104 mmol/L (98-107); Estimated CRCL calculation 57 ml/min; Estimated Glomerular Filt Rate > 60; Glucose 94 mg/dL (65-110); Potassium 3.9 mmol/L (3.4-5.0); Sodium 132 mmol/L (137-145)
[2022-12-15 06:13] LABS: Platelet Estimate Adequate (Adequate)
[2022-12-15 06:15] LABS: Anisocytosis 1+ (NORMAL); Poikilocytosis 2+ (NORMAL)
[2022-12-15 06:16] LABS: Schistocytes 1+ (NORMAL)
--- NOTE | 2022-12-15 06:59 | PM.DS ---
DS: Admitting Diagnosis Discharge Date December 15 2022 Admitting Diagnosis anemia DS: Discharge Diagnosis Discharge Diagnosis (1) GI bleed: Code(s): K92.2 - Gastrointestinal hemorrhage, unspecified Status: Acute Assessment and Plan: Hemoglobin 4.9/ hematocrit 19.6 on admission -shortness of breath, weakness, and fatigue present -received 3 units of pRBC -On xarelto and plavix at home. Holding currently. -No overt signs of bleeding but complains of increased GERD symptoms of the last month or so with increased TUMS usage. -says she intermittently uses Aleve and Excedrin for chronic back pain. Discussed NSAIDs and risk of GI bleed. -Consult placed with GI. Plan for upper and lower scope tomorrow -Trend H/H -VS reviewed and stable (2) Profound anemia: Code(s): D64.9 - Anemia, unspecified Status: Acute Assessment and Plan: Pre-transfusion labs for anemia: Fe 16 TIBC 544 % Saturation 3L Ferritin 7.45 Folate > 20 Vitamin B12 normal at 721 Will start Fe sulfate (3) Esophagitis: Code(s): K20.90 - Esophagitis, unspecified without bleeding Status: Acute Assessment and Plan: Protonix 40 mg IV b.i.d. ordered (4) Coronary artery disease: Code(s): I25.10 - Atherosclerotic heart disease of [place] coronary artery without angina pectoris Status: Acute Assessment and Plan: On high-dose atorvastatin Check a lipid panel (5) Paroxysmal atrial fibrillation: Code(s): I48.0 - Paroxysmal atrial fibrillation Status: Acute Assessment and Plan: Rate controlled with metoprolol and anticoagulated with Eliquis (Eliquis on hold because of bleeding) (6) Chronic obstructive pulmonary disease: Code(s): J44.9 - Chronic obstructive pulmonary disease, unspecified Status: Acute Assessment and Plan: Does not normally use oxygen Well controlled Home inhalers ordered (7) Tobacco dependence: Code(s): F17.200 - Nicotine dependence, unspecified, uncomplicated Status: Acute Assessment and Plan: Can order nicotine patch 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 Expect subclinical hypothyroidism. Will recommend repeat labs with PCP. Trend H/H DS: Summary Hospital Course Hospital Course: Narrative: This is a pleasant 67-year-old female smoker with history of 2 vessel bypass and bioprosthetic mitral valve replacement 2 years ago, paroxysmal atrial fibrillation on chronic anticoagulation, chronic obstructive pulmonary disease, depression, and anxiety who presented to the emergency department for evaluation after she was found to have low hemoglobin on labs drawn earlier this morning. The patient provides the following history. She recently moved to the area and established care with Dr. Schulz's office. She was referred to Dr. Padron given her cardiac history and she had routine labs done this morning in anticipation of an upcoming appointment. Not long after she had her lab tests drawn she received a phone call that she needed to come to the ER as she was very anemic. Hemoglobin hematocrit on arrival today were 4.5 and 17.4% respectively. With further questioning she has not been feeling well for several months with generalized fatigue, weakness, and increasing shortness of breath from baseline. She has not noticed any dark stools and fact she complains of being a bit constipated. She does have occasional GERD symptoms and reports that they have been much worse the last several weeks and she has been taking Tums on a daily basis. She is on apixaban and clopidogrel at home. She denies ibuprofen use.? No significant caffeine or alcohol use. She has no known history of peptic ulcers. At the time my evaluation she is resting comfortably and is currently receiving her 3rd unit of blood. She feels may be a bit short of breath and has mild crackles on exam.
[2022-12-15] MEDS: FERROUS SULFATE 325 MG TABLET DR PO (08:34)
[2022-12-15] MEDS: FUROSEMIDE 40 MG TABLET PO (08:35)
[2022-12-15] MEDS: PANTOPRAZOLE 40 MG TABLET PO (08:35)
[2022-12-15] MEDS: AMIODARONE HCL 200 MG TABLET PO (08:35)
[2022-12-15] MEDS: busPIRone HCL 5 MG TABLET PO (08:36)
[2022-12-15] MEDS: METOPROLOL SUCCINATE EXT REL 12.5 MG TABCR PO (08:36)
[2022-12-15] MEDS: ESCITALOPRAM OXALATE 10 MG TABLET PO (08:36)
[2022-12-15] MEDS: FLUTICASONE/UMECLIDIN/VILANTER 100-62.5-25 MCG ELLIPTA 1 PUFF INHALATION (08:54)
[2022-12-15] MEDS: ACETAMINOPHEN 325 MG TABLET 650 MG PO (10:53)
--- NOTE | 2022-12-15 11:26 | WPDGIPROGNO ---
Progress Note: A&P Assessment and Plan (1) Erosive gastritis: Code(s): K29.60 - Other gastritis without bleeding Status: Acute Assessment and Plan: probably cause if anemia in setting of chronic AC started on protonix and will take daily (gave enough for 3 months), avoid nsaid's (2) Profound anemia: Code(s): D64.9 - Anemia, unspecified Status: Acute Assessment and Plan: better hold blood thinner for 3 days, then monitor cbc as outpatient (3) Chronic anticoagulation: Code(s): Z79.01 - snf (current) use of anticoagulants Status: Acute (4) Chronic obstructive pulmonary disease: Code(s): J44.9 - Chronic obstructive pulmonary disease, unspecified Status: Acute Subjective Date/time seen: 12/15/22 11:26 Interval history: doing well, egd showed erosive gastritis also chronic constipation she is going home today Review of Systems Review of Systems: All systems reviewed & are unremarkable except as noted in HPI and below Exam Const: General: comfortable and no acute distress HENMT: Face/Nose/Sinus: Normal nares present Eyes: General: appearance normal, both eyes and all related structures Neck: Neck: no JVD Resp: Auscultation: clear to auscultation bilaterally Cardio: Rate: regular rate GI: Inspection: non-distended GI Palp: Yes Soft to palpation, No Tenderness to palpation present (GI) and No Guarding due to palpation present (GI) Auscultation: normal bowel sounds Neuro: Speech: normal speech Motor exam (neuro): 5/5 motor strength present throughout Extrem: General: normal to inspection Psych: Mental Status: mental status grossly normal Objective Data Vital Signs Vital Signs: Vital Signs - 24 hr 12/14/22 13:34 12/14/22 14:50 12/14/22 15:00 Temperature 97.8 F Pulse Rate 65 56 L 53 L Respiratory Rate 18 14 15 Blood Pressure 139/86 100/55 L 102/56 L Pulse Oximetry 100 100 100 Oxygen Delivery Room Air Room Air Room Air 12/14/22 15:10 12/14/22 14:35 12/14/22 14:50 Temperature 97.6 F 97.8 F Pulse Rate 57 L 70 72 Respiratory Rate 22 H 16 16 Blood Pressure 106/60 135/65 134/82 Pulse Oximetry 100 93 95 Oxygen Delivery Room Air 12/14/22 15:20 12/14/22 16:20 12/14/22 20:00 Temperature 97.6 F 97.6 F 97.5 F L Pulse Rate 70 74 71 Respiratory Rate 18 16 18 Blood Pressure 134/80 134/82 129/74 Pulse Oximetry 96 96 97 Oxygen Delivery 12/15/22 00:17 12/15/22 04:55 12/15/22 08:00 Temperature 97.9 F 97.7 F 98.0 F Pulse Rate 64 58 L 63 Respiratory Rate 20 18 16 Blood Pressure 105/65 126/69 145/89 H Pulse Oximetry 98 97 99 Oxygen Delivery 12/15/22 08:33 12/15/22 08:35 12/15/22 08:36 Temperature Pulse Rate 65 65 65 Respiratory Rate Blood Pressure 134/82 Pulse Oximetry 97 Oxygen Delivery 12/15/22 08:54 12/15/22 08:30 Temperature Pulse Rate Respiratory Rate Blood Pressure Pulse Oximetry 96 Oxygen Delivery Room Air Room Air Intake/Output Intake/Output: Intake & Output 12/12/22 12/13/22 12/14/22 12/15/22 23:59 23:59 23:59 23:59 Intake Total 700 1970 1020 640 Output Total 2050 600 Balance 700 -80 1020 40 Meds/Results Medications: Active Medications Generic Name Dose Route Start Last Admin Trade Name Nova PRN Reason Stop Dose Admin Acetaminophen 650 mg 12/12/22 22:07 12/15/22 10:53 Acetaminophen 325 Mg Tablet PO 650 mg Q6H PRN Administration Mild Pain (1-3) or Fever Amiodarone HCl 200 mg 12/13/22 09:00 12/15/22 08:35 Amiodarone Hcl 200 Mg Tablet PO 200 mg DAILY CHRISTIANE Administration Atorvastatin Calcium 80 mg 12/12/22 22:20 12/14/22 20:01 Atorvastatin 40 Mg Tablet PO 80 mg HS CHRISTIANE Administration Buspirone HCl 5 mg 12/13/22 09:00 12/15/22 08:36 Buspirone Hcl 5 Mg Tablet PO 5 mg DAILY CHRISTIANE Administration Escitalopram Oxalate 10 mg 12/13/22 09:00 12/15/22 08:36 Escitalopram Oxalate 10 Mg Tablet PO 10 m
--- NOTE | 2022-12-15 13:34 | PCPTNOTE ---
On 12/15/22, the student, MINA Kauffman, provided care and completed [facility] documentation on this patient. I have reviewed the student's documentation and agree with the findings.
== END 2022-12-15 14:00 | disposition home or self-care (01) | DRG 378 ==
LOC: ANHED 16:12 → ANH2MED 17:20
PROVIDERS: Internal Medicine Gastroenterology; Physician Assistant; Admitting Provider Student in an Organized Health Care Education/Training Program; Emergency Provider Emergency Medicine; PCP Physician Assistant; Visit Provider Nurse Practitioner Acute Care
PROC: 0DJ08ZZ Inspection of Upper Intestinal Tract, Via Natural or Artificial Opening Endoscopic (ICD-10-PCS; CPT 43235; principal; 2022-12-14 14:30)
DX: K29.61 Other gastritis with bleeding (principal); D62 Acute posthemorrhagic anemia; K21.00 Gastro-esophageal reflux disease with esophagitis, without bleeding; K64.8 Other hemorrhoids; K57.30 Diverticulosis of large intestine without perforation or abscess without bleeding; K64.4 Residual hemorrhoidal skin tags; J44.9 Chronic obstructive pulmonary disease, unspecified; I10 Essential (primary) hypertension; K59.09 Other constipation; E03.8 Other specified hypothyroidism; F41.9 Anxiety disorder, unspecified; I48.0 Paroxysmal atrial fibrillation; F32.A Depression, unspecified; I25.10 Atherosclerotic heart disease of native coronary artery without angina pectoris; F17.210 Nicotine dependence, cigarettes, uncomplicated; Z95.2 Presence of prosthetic heart valve; Z95.1 Presence of aortocoronary bypass graft; Z90.710 Acquired absence of both cervix and uterus; Z90.722 Acquired absence of ovaries, bilateral; Z79.01 Long term (current) use of anticoagulants; Z79.02 Long term (current) use of antithrombotics/antiplatelets
CPT/HCPCS: 36415; 36430; 74177; 80048; 80053; 81001; 82607; 82728; 82746; 83540; 83550; 83735; 84439; 84443; 84480; 85025; 85027; 85610; 85730; 86850; 86900; 86901; 86923; 87077; 87086; 87186; 88305; 93005; 94640; 96374; 97161; 99285; A9270; C9113; J0290; J1580; J1940; J2060; J2704; J7050; J7120; P9016; Q9967

== ENCOUNTER 2022-12-25 01:28 | Inpatient (IN) | payer MEDICARE, SELFPAY ==
[2022-12-25] VITALS (15 sets, daily range): BP systolic 120–156; BP diastolic 73–117; PULSE 58–72; RESP 14–24; TEMP 36.4–37; O2SAT 93–100; BMI 20.9
--- NOTE | 2022-12-25 | ECHO_ITS ---
Patient Info Name: Maci Garcia Age: 67 years : 1955 Gender: Female Ht: 61 in Wt: 110 lbs BSA: 1.47 m2 HR: 65 bpm BP: 141 / 82 mmHg Heart Rhythm: Sinus Rhythm Technical Quality: Good Exam Date: 12/25/2022 10:31 AM Exam Location: [facility] Card Pulmonary Patient Status: Inpatient Admit Date: 12/25/2022 Staff Ordering Physician: Mohan Krause MD Digital Librarian: Rica Figueroa RDCS Attending Provider: Mohan Krause MD Referring Physician: Jimi JACKSON; Exam Type: CA echo dop color flow w con Study Info Indications I50.9 - Heart failure, unspecified Complete two-dimensional, color flow and Doppler transthoracic echocardiogram is performed with contrast to opacify the left ventricle and to improve the deliniation of the left ventricle endocardial borders. Contrast/Agitated Saline Contrast/Ag. Saline: Definity Amount: 2.00 ml Administered By: Rica Figueroa RDCS Existing IV Access: Yes IV Access Condition: patent with no signs of infiltration Summary 1. Left ventricular chamber dimension is mildly enlarged. 2. Left ventricular systolic function is severely reduced, estimated at 20-25%. 3. There is hypokinesis of the mid LV segments with akinesis of the apex. This pattern of regional wall motion abnormality can be seen in left anterior descending coronary artery infarctions or with Takotsubo cardiomyopathy (stress cardiomyopathy). 4. The left ventricular diastolic function is grade III diastolic dysfunction. 5. Right ventricular chamber dimension is mildly enlarged. 6. Right ventricular systolic function is reduced. 7. Left atrial chamber dimension is severely enlarged. 8. Right atrial chamber dimension is moderately enlarged. 9. There is mild aortic valve regurgitation. 10. There is mild mitral valve regurgitation. 11. There is moderate to severe tricuspid valve regurgitation. 12. Pulmonary hypertension with estimated pulmonary arterial systolic pressure is 53 mmHg. Left Ventricle There is hypokinesis of the mid LV segments with akinesis of the apex. This pattern of regional wall motion abnormality can be seen in left anterior descending coronary artery infarctions or with Takotsubo cardiomyopathy (stress cardiomyopathy). Left ventricular chamber dimension is mildly enlarged. Left ventricular systolic function is severely reduced, estimated at 20-25%. There is no increased left ventricular wall thickness. The left ventricular diastolic function is grade III diastolic dysfunction. Right Ventricle Right ventricular chamber dimension is mildly enlarged. Right ventricular systolic function is reduced. Left Atria Left atrial chamber dimension is severely enlarged. Right Atria Right atrial chamber dimension is moderately enlarged. Atrial Septum Intact interatrial septum visualized by color flow imaging. Aortic Valve The aortic valve is probable trileaflet. There is no aortic valve stenosis. There is mild aortic valve regurgitation. There is mild aortic valve calcification. Pulmonic Valve The pulmonic valve is not well visualized. Mitral Valve There is mild mitral valve regurgitation. The mitral valve annulus is moderately calcified. Tricuspid Valve There is moderate to severe tricuspid valve regurgitation. Pulmonary hypertension with estimated pulmonary arterial systolic pressure is 53 mmHg. Pericardium/Pleural There is no pericardial effusion. Inferior Vena Cava Normal inferior vena cava with >50% collapse upon inspiration consistent with normal right atrial pressure, 3 mmHg. Aorta
--- NOTE | ~2022-12-25 | XR_ITS ---
Clinical Indication: Shortness of breath PA and lateral views of the chest: Comparison: None Findings: The lungs are clear, without evidence of focal consolidation or pleural effusion. Possible COPD. Heart is enlarged, status post probable mitral valve replacement.. There is compression deformi ty of what is probably T9, with mild kyphosis.. Impression: Clear lungs. Possible COPD. Cardiomegaly, status post mitral valve replacement. T9 compression fracture with mild kyphosis. Reviewed, dictated and finalized at location M. Impression: Clear lungs. Possible COPD. Cardiomegaly, status post mitral valve replacement. T9 compression fracture with mild kyphosis.
--- NOTE | ~2022-12-25 | CT_ITS ---
Clinical Indication: Shortness of breath CT Scan of the Chest with Contrast: Technique: Contiguous sections were acquired throughout the chest after intravenous administration of 100 cc of Omnipaque 350. Dose reduction technique was used on this scan by utilizing automated expos ure control and iterative reconstruction technique. The dose-length product (DLP) was 150.89 mGy-cm. Findings: There is no evidence of any significant mediastinal, hilar or axillary lymphadenopathy. Suspected sin gle small pulmonary embolus in segmental branch in the right upper lobe (axial image 82).. There is n o evidence of aortic aneurysm. No pericardial effusion. There is cardiomegaly. Small bilateral pleural effusions are present. There is probable mild interstitial pulmonary edema. Calcified right lower lobe granuloma noted. Images through the upper abdomen reveal no abnormalities. Compression fractures of T7 and T9 are pres ent. Impression: Probable single small pulmonary embolus in a segmental branch in the right upper lobe. Small bilateral pleural effusions with mild interstitial pulmonary edema. Moderate to severe compression fractures of T7 and T9, age indeterminate. Cardiomegaly. Reviewed, dictated and finalized at location . Impression: Probable single small pulmonary embolus in a segmental branch in the right uppe r lobe. Small bilateral pleural effusions with mild interstitial pulmonary edema. Moderate to severe compression fractures of T7 and T9, age indeterminate. Cardiomegaly.
--- NOTE | 2022-12-25 01:34 | ECG_ITS ---
Measurements Intervals [place] Rate: 68 P: 71 VA: 163 QRS: 73 QRSD: 88 T: 167 QT: 405 QTc: 432 Interpretive Statements SINUS RHYTHM MODERATE T-WAVE ABNORMALITY, CONSIDER ANTEROLATERAL ISCHEMIA [-0.1+ mV T WAVE IN V3- V6] COMPARED TO ECG 12/12/2022 13:40:12 NO SIGNIFICANT CHANGES Electronically Signed On 12-25-2022 8:59:48 CDT by Ena Fowler M.D.
[2022-12-25 01:51] LABS: Basophils Absolute Auto 0.1 K/mm3 (0.0-0.1); Basophils Percent Auto 0.7 % (0.2-1.2); Eosinophils Absolute Auto 0.1 K/mm3 (0-0.3); Eosinophils Percent Auto 1.1 % (0-4.4); Hematocrit 39.8 % (37.0-47.0); Hemoglobin 11.7 g/dL (12.0-15.0); Immature Granulocyte Absolute 0.03 K/mm3 (0.00-0.031); Immature Granulocyte Percent A 0.3 % (0-0.5); Lymphocytes Absolute Auto 1.59 K/mm3 (0.9-3.2); Lymphocytes Percent Auto 15.6 % (18.3-44.2); Mean Corpuscular HGB Conc 29.4 g/dl (32-36); Mean Corpuscular Hemoglobin 25.4 pg (26-34); Mean Corpuscular Volume 86.3 fl (80-100); Mean Platelet Volume 9.9 fl (7.4-10.4); Monocytes Absolute Auto 1.1 K/mm3 (0.1-0.6); Monocytes Percent Auto 10.6 % (2.6-8.5); Neutrophils Absolute Auto 7.3 K/mm3 (1.3-6.7); Neutrophils Percent Auto 71.7 % (45.5-73.1); Platelet Count Result 340 k/mm3 (150-375); Red Blood Count 4.61 M/mm3 (4.2-5.4); Red Cell Distribution Width 25.4 % (11.5-14.5); White Blood Count 10.2 K/mm3 (4.5-10.0)
[2022-12-25 02:06] LABS: Alanine Aminotransferase 72 U/L (6-35); Albumin Level 4.1 g/dL (3.5-5.1); Alkaline Phosphatase 136 U/L (38-126); Anion Gap 6 mmol/L (8-16); Aspartate Amino Transferase 95 U/L (14-36); Bilirubin,Total 0.7 mg/dL (0.2-1.3); Blood Urea Nitrogen 16 mg/dL (7-17); Calcium 8.8 mg/dL (8.4-10.2); Carbon Dioxide 29 mmol/L (22-30); Chloride 103 mmol/L (98-107); Estimated CRCL calculation 65 ml/min; Estimated Glomerular Filt Rate > 60; Glucose 110 mg/dL (65-110); Potassium 4.1 mmol/L (3.4-5.0); Sodium 138 mmol/L (137-145)
[2022-12-25 02:12] LABS: Platelet Estimate Adequate (Adequate)
[2022-12-25 02:14] LABS: Anisocytosis 1+ (NORMAL); Microcytosis 1+ (NORMAL); Poikilocytosis 2+ (NORMAL); Schistocytes Rare (NORMAL)
--- NOTE | 2022-12-25 02:26 | ED.SOB ---
HPI - SOB/Dyspnea General Chief Complaint: Shortness of Breath/Dyspnea Stated Complaint: hard to breath Time Seen by Provider: 12/25/22 01:38 History of Present Illness HPI Narrative: Patient is a 67-year-old female with a history of paroxysmal A-fib on Eliquis, COPD, hypertension, hyperlipidemia presenting with shortness of breath. Patient states that she was recently hospitalized after being found to be extremely anemic. She received blood transfusions and underwent a GI workup and was able to go home. States that over the last week she has had increasingly worse cough as well as shortness of breath. States that tonight she felt so short of breath that she became scared and called EMS. States that taking a deep breath sometimes causes pain in the middle of her back. States that she does have intermittent left-sided chest pain as well. States that her throat has been feeling sore today. No numbness or weakness, palpitations, abdominal pain, vomiting, dysuria, leg swelling. States that she has had a couple episodes of diarrhea. Related Data Home Medications Medication Instructions Recorded Confirmed Caltrate 1 tab-cap PO DAILY 09/19/22 12/25/22 Centrum Silver Women 1 tab-cap PO DAILY 09/19/22 12/25/22 amiodarone 200 mg tablet 200 mg PO DAILY 09/19/22 12/25/22 apixaban 5 mg tablet (Eliquis) 5 mg PO BID 09/19/22 12/25/22 clopidogrel 75 mg tablet 75 mg PO DAILY 09/19/22 12/25/22 furosemide 40 mg tablet 40 mg PO QAM 09/19/22 12/25/22 metoprolol succinate 25 mg 25 mg PO QAM 09/19/22 12/25/22 tablet,extended release 24 hr atorvastatin 80 mg PO HS 10/14/22 12/25/22 buspirone 5 mg tablet 5 mg PO DAILY 12/12/22 12/25/22 polyethylene glycol 3350 17 17 g PO PRN constipation 12/25/22 12/25/22 gram/dose oral powder (Miralax) Allergies Allergy/AdvReac Type Severity Reaction Status Date / Time MICHAELLE Inhibitors Allergy Unknown Unknown Verified 12/25/22 06:51 Review of Systems Review of Systems: All systems reviewed & are unremarkable except as noted in HPI and below PMFSH Past Medical History Medical History Anxiety CHF (congestive heart failure) Chronic anticoagulation Chronic obstructive pulmonary disease Coronary artery disease Erosive gastritis Hypertension Paroxysmal atrial fibrillation Tobacco dependence Surgical History Surgical History History of cardiac catheterization History of coronary artery bypass graft x 2 History of incisional hernia repair (09/2011) History of mitral valve replacement with bioprosthetic valve History of stress incontinence procedure using tension free vaginal tape (2002) History of tonsillectomy History of total abdominal hysterectomy and bilateral salpingo-oophorectomy (2002) History of tubal ligation Family History Family History Father Family history of heart disease in male family member before age 55 Family history of coronary artery disease Sibling Hypertension Other Cerebrovascular accident Social History Social History Social History: Surrogate medical decision maker: Codi Calle, son. Code status: Full code. Smoking packs per day: 1 Smoking cigarettes per day: 20.0 Smoking status: Current every day smoker Tobacco type: cigarettes Additional smoking assessment comments: Has smoked up to 2 packs a day. Alcohol intake: never Substance use: never Substance use type: does not use Lack of Transportation: YES Lack of Food: Never True Current Housing: I Have Housing Concerned About Future Housing: No Difficulty Paying Gas/Electric Bills: No Difficulty Paying for Meds: YES Currently Unemployed: No Education: High School Diploma/GED Difficulty w/ Childcare or Family Care: No Additional living arrangements comments: Rece
[2022-12-25 02:56] LABS: NT Pro B Type Natriuretic Pept 23700 pg/mL (19.9-100); Troponin I 0.025 ng/mL (0.000-0.034)
[2022-12-25] MEDS: SODIUM CHLORIDE 0.9% IV 1,000 ML 999 ML IV CONT (02:58)
[2022-12-25 03:08] LABS: INR 1.2
[2022-12-25 03:09] LABS: Partial Thromboplastin Time 29.7 SECONDS (22.3-36.8)
[2022-12-25 03:16] LABS: Influenza A QL RT-PCR Negative (Negative); Influenza B QL RT-PCR Negative (Negative); SARS-CoV-2 RNA PCR Negative (Negative)
[2022-12-25] MEDS: ACETAMINOPHEN 500 MG TABLET 1000 MG PO (03:51)
[2022-12-25] MEDS: MORPHINE SULFATE (*CRX) 2 MG/ML INJ IV PUSH (03:51)
[2022-12-25] MEDS: FUROSEMIDE INJ 100 MG/10 ML VIAL 80 MG IV PUSH (05:45)
[2022-12-25 05:57] LABS: Troponin I 0.029 ng/mL (0.000-0.034)
[2022-12-25 06:35] LABS: Appearance Urine Clear (Clear); Bacteria Urine None Seen /hpf; Bilirubin Urine Negative (Negative); Blood Urine Negative (Negative); Color Urine Yellow (Yellow); Glucose Urine UA Negative (Negative); Ketones Urine Negative (Negative); Leukocyte Esterase Ur Trace LEU/UL (Negative); Need Manual Microscopic Reviewed; Nitrate Urine Negative (Negative); Non Pathogenic Casts 0-2; Protein Urine 1+ mg/dL (Negative); Squamous Epithelial Cell Urine None seen /hpf (Few); WBC Urine 0-5 /hpf
--- NOTE | 2022-12-25 06:35 | ADMGEN ---
This patient, Maci Garcia, was admitted to [facility] Surg Room 322-02. Patient/family oriented to hospital policies and general routines including ID bracelet, bed and alarms, visiting hours, pain management, procedures, bathroom and other care routines, personal items, smoking policy, room service/diet, and visiting hours. Information on how to activate the Rapid Response Team has been discussed. Patient/Family are encouraged to report perceived risks to care and to ask questions if they do not understand what they are told or what they should do.
[2022-12-25 06:41] LABS: Add Urine Microscopic? YES
[2022-12-25] MEDS: busPIRone HCL 5 MG TABLET PO (10:01)
[2022-12-25] MEDS: FERROUS SULFATE 325 MG TABLET DR PO ×2 (10:01→18:19)
[2022-12-25] MEDS: AMIODARONE HCL 200 MG TABLET PO (10:01)
[2022-12-25] MEDS: ACETAMINOPHEN 325 MG TABLET 650 MG PO ×2 (10:02→20:34)
[2022-12-25] MEDS: METOPROLOL SUCCINATE EXT REL 25 MG TABCR PO (10:02)
[2022-12-25] MEDS: PERFLUTREN LIPID MICROSPHERES 1.5 ML VIAL DILUTED TO 10 ML TOTAL VOLUME IV PUSH (10:02)
[2022-12-25] MEDS: APIXABAN 5 MG TABLET PO ×2 (10:03→18:19)
[2022-12-25] MEDS: ESCITALOPRAM OXALATE 10 MG TABLET PO (10:03)
[2022-12-25] MEDS: CLOPIDOGREL BISULFATE 75 MG TABLET PO (10:03)
[2022-12-25] MEDS: PANTOPRAZOLE 40 MG TABLET PO (10:03)
[2022-12-25] MEDS: MULTIVITAMINS /C LUTEIN (CENTRUM SILVER) TABLET *BKC 1 TAB PO (10:19)
[2022-12-25] MEDS: FUROSEMIDE INJ 40 MG/4 ML VIAL IV PUSH ×2 (10:19→18:19)
--- NOTE | 2022-12-25 13:30 | PM.IMHP ---
H&P: HPI History of Present Illness Date/Time: 12/25/22 13:30 Chief Complaint: Patient is a 67-year-old female with a history of paroxysmal A-fib on Eliquis, COPD, hypertension, hyperlipidemia presenting with shortness of breath.? Patient states that she was recently hospitalized after being found to be extremely anemic.? She received blood transfusions and underwent a GI workup and was able to go home.? States that over the last week she has had increasingly worse cough as well as shortness of breath.? States that tonight she felt so short of breath that she became scared and called EMS.? States that taking a deep breath sometimes causes pain in the middle of her back.? States that she does have intermittent left-sided chest pain as well.? States that her throat has been feeling sore today.? No numbness or weakness, palpitations, abdominal pain, vomiting, dysuria, leg swelling.? States that she has had a couple episodes of diarrhea Review of Systems Review of Systems: All systems reviewed & are unremarkable except as noted in HPI and below PMFSH Past Medical History Medical History (Updated 12/25/22 @ 13:31 by Femi Winter MD) Anxiety CHF (congestive heart failure) Chronic anticoagulation Chronic obstructive pulmonary disease Coronary artery disease Erosive gastritis Hypertension Paroxysmal atrial fibrillation Tobacco dependence Surgical History Surgical History History of cardiac catheterization History of coronary artery bypass graft x 2 History of incisional hernia repair (09/2011) History of mitral valve replacement with bioprosthetic valve History of stress incontinence procedure using tension free vaginal tape (2002) History of tonsillectomy History of total abdominal hysterectomy and bilateral salpingo-oophorectomy (2002) History of tubal ligation Family History Family History Father Family history of heart disease in male family member before age 55 Family history of coronary artery disease Sibling Hypertension Other Cerebrovascular accident Social History Social History Social History: Surrogate medical decision maker: Codi Calle, son. Code status: Full code. Smoking packs per day: 1 Smoking cigarettes per day: 20.0 Smoking status: Current every day smoker Tobacco type: cigarettes Additional smoking assessment comments: Has smoked up to 2 packs a day. Alcohol intake: never Substance use: never Substance use type: does not use Lack of Transportation: YES Lack of Food: Never True Current Housing: I Have Housing Concerned About Future Housing: No Difficulty Paying Gas/Electric Bills: No Difficulty Paying for Meds: YES Currently Unemployed: No Education: High School Diploma/GED Difficulty w/ Childcare or Family Care: No Additional living arrangements comments: Recently moved back to the area, currently staying with her ex-. Spiritual care concerns: No Meds Home Medications and Allergies Home Medications Medication Instructions Recorded Confirmed Type Caltrate 1 tab-cap PO DAILY 09/19/22 12/25/22 History Centrum Silver Women 1 tab-cap PO DAILY 09/19/22 12/25/22 History amiodarone 200 mg tablet 200 mg PO DAILY 09/19/22 12/25/22 History apixaban 5 mg tablet (Eliquis) 5 mg PO BID 09/19/22 12/25/22 History clopidogrel 75 mg tablet 75 mg PO DAILY 09/19/22 12/25/22 History furosemide 40 mg tablet 40 mg PO QAM 09/19/22 12/25/22 History metoprolol succinate 25 mg 25 mg PO QAM 09/19/22 12/25/22 History tablet,extended release 24 hr atorvastatin 80 mg PO HS 10/14/22 12/25/22 History escitalopram oxalate 10 mg tablet 10 mg PO DAILY #90 tabs 10/19/22 12/25/22 Rx zolpidem 5 mg tablet 5 mg PO QHS PRN sleep #30 tabs 12/11/22 12/25/22 Rx buspirone 5 mg tablet 5 mg PO DAILY 12/12/22
[2022-12-25] MEDS: ZOLPIDEM TARTRATE (*CRX) 5 MG TABLET PO (20:35)
[2022-12-25] MEDS: ATORVASTATIN 40 MG TABLET 80 MG PO (20:35)
[2022-12-25] MEDS: SENNA/DOCUSATE SODIUM TABLET 1 TAB PO (20:35)
[2022-12-26] MEDS: ACETAMINOPHEN 325 MG TABLET 650 MG PO ×4 (01:25→20:27)
[2022-12-26 06:00] VITALS: BP 132/65; PULSE 53; RESP 20; TEMP 36.8; O2SAT 98
[2022-12-26] MEDS: ESCITALOPRAM OXALATE 10 MG TABLET PO (09:32)
[2022-12-26] MEDS: CLOPIDOGREL BISULFATE 75 MG TABLET PO (09:32)
[2022-12-26] MEDS: busPIRone HCL 5 MG TABLET PO (09:32)
[2022-12-26 09:33] VITALS: PULSE 55
[2022-12-26] MEDS: APIXABAN 5 MG TABLET PO ×2 (09:33→17:23)
[2022-12-26] MEDS: AMIODARONE HCL 200 MG TABLET PO (09:33)
[2022-12-26] MEDS: FERROUS SULFATE 325 MG TABLET DR PO ×2 (09:33→17:23)
[2022-12-26] MEDS: METOPROLOL SUCCINATE EXT REL 25 MG TABCR PO (09:33)
[2022-12-26] MEDS: FUROSEMIDE INJ 40 MG/4 ML VIAL IV PUSH ×2 (09:41→17:23)
[2022-12-26] MEDS: PANTOPRAZOLE 40 MG TABLET PO (09:42)
[2022-12-26] MEDS: MULTIVITAMINS /C LUTEIN (CENTRUM SILVER) TABLET *BKC 1 TAB PO (09:42)
[2022-12-26] MEDS: polyethylene glycoL 3350 17 GM POWD.PACK PO (09:46)
--- NOTE | 2022-12-26 13:23 | PM.DS ---
DS: Admitting Diagnosis Discharge Date 12/26/22 Admitting Diagnosis CHF DS: Discharge Diagnosis Discharge Diagnosis (1) Tobacco dependence: Code(s): F17.200 - Nicotine dependence, unspecified, uncomplicated Status: Acute (2) Chronic obstructive pulmonary disease: Code(s): J44.9 - Chronic obstructive pulmonary disease, unspecified Status: Acute (3) Coronary artery disease: Code(s): I25.10 - Atherosclerotic heart disease of [place] coronary artery without angina pectoris Status: Acute (4) Paroxysmal atrial fibrillation: Code(s): I48.0 - Paroxysmal atrial fibrillation Status: Acute (5) CHF (congestive heart failure): Code(s): I50.9 - Heart failure, unspecified Status: Acute Assessment and Plan: Continue diuretic therapy. Breathing is better. Echo pending DS: Summary Time Spent with Patient Time attestation: Total time spent providing and/or coordinating discharge services: Exam Narrative: GENERAL: Frail elderly female sitting in bed in no acute distress HEAD: Normocephalic, atraumatic. EYES: PERRLA and EOMI. ENT: Nares clear, no rhinorrhea or epistaxis. Mucous membranes moist. NECK: Supple. CHEST: Tachypneic, coarse sounds in the bases, no wheezing HEART: Regular rate and rhythm. No murmur heard. Normal peripheral pulses. ABDOMEN: Soft, nontender, nondistended EXTREMITIES: Normal range of motion. No edema. SKIN: Warm, dry, no rash. NEURO: No focal deficits. Alert and oriented x3. PSYCH: Normal mood and affect. Discharge Plan Discharge Attending physician on discharge: Femi Winter Discharging Clinician: Femi Winter Patient Disposition: Home, Self-Care Activity: as tolerated Diet: as tolerated Patient Instructions: Antibiotic Form, Clopidogrel (By mouth), Apixaban (By mouth) Stand Alone Forms: General Discharge Information Follow-up/Referrals: Omar Holcomb PA-C [Primary Care Provider] - Discharge Medications: New furosemide 40 mg tablet 40 mg PO BID Qty: 60 0RF Continued amiodarone 200 mg tablet 200 mg PO DAILY clopidogrel 75 mg tablet 75 mg PO DAILY Hold Instructions: Resume on 12/19/22. metoprolol succinate 25 mg tablet extended release 24 hr 25 mg PO QAM Eliquis 5 mg tablet 5 mg PO BID Hold Instructions: Resume on 12/19/22. Caltrate 1 tab-cap PO DAILY Centrum Silver Women 1 tab-cap PO DAILY atorvastatin 80 mg PO HS Rx Instructions: 80mg buspirone 5 mg tablet 5 mg PO DAILY ferrous sulfate 325 mg (65 mg iron) Tablet,Delayed Release (Dr/Ec) 325 mg PO BID Qty: 60 0RF pantoprazole 40 mg Tablet,Delayed Release (Dr/Ec) 40 mg PO DAILY Qty: 30 3RF acetaminophen [Mapap (acetaminophen)] 325 mg Tablet 650 mg PO Q6H PRN (Reason: Mild Pain (1-3) Or Fever) Qty: 60 0RF sennosides-docusate sodium [Senna with Docusate Sodium] 8.6-50 mg tablet 1 tab-cap PO HS Qty: 30 0RF polyethylene glycol 3350 [Miralax] 17 gram/dose powder 17 g PO PRN escitalopram oxalate 10 mg tablet 10 mg PO DAILY Qty: 90 1RF zolpidem 5 mg tablet 5 mg PO QHS PRN (Reason: sleep) Qty: 30 0RF Discontinued furosemide 40 mg tablet 40 mg PO QAM Date of admission: 12/25/22 05:17 Primary Care Provider: Omar Holcomb Admitting Provider: Mohan Krause V. Attending physician on admission: Mohan Krause V. Condition: Stable
--- NOTE | 2022-12-26 13:28 | PM.IMPN ---
Progress Note: A&P Assessment and Plan (1) Tobacco dependence: Code(s): F17.200 - Nicotine dependence, unspecified, uncomplicated Status: Acute (2) Chronic obstructive pulmonary disease: Code(s): J44.9 - Chronic obstructive pulmonary disease, unspecified Status: Acute (3) Coronary artery disease: Code(s): I25.10 - Atherosclerotic heart disease of [place] coronary artery without angina pectoris Status: Acute (4) Paroxysmal atrial fibrillation: Code(s): I48.0 - Paroxysmal atrial fibrillation Status: Acute Assessment and Plan: Heart rates in the 50s. Continue anticoagulation (5) CHF (congestive heart failure): Code(s): I50.9 - Heart failure, unspecified Status: Acute Assessment and Plan: EF 20-25%. Presumably a new diagnosis. Continue diuretic therapy. Consult Cardiology Respiratory status is much improved Subjective Date/time seen: 12/26/22 13:28 Interval history: Shortness of breath is much improved. Objective Data Vital Signs Vital Signs: Vital Signs - 24 hr 12/25/22 14:00 12/25/22 18:24 12/25/22 22:00 Temperature 97.5 F L 97.5 F L Pulse Rate 60 60 58 L Respiratory Rate 20 14 20 Blood Pressure 122/78 120/73 133/83 Pulse Oximetry 97 100 99 Oxygen Delivery 12/25/22 20:00 12/26/22 06:00 12/26/22 09:33 Temperature 98.3 F Pulse Rate 58 L 53 L 55 L Respiratory Rate 20 20 Blood Pressure 132/65 Pulse Oximetry 99 98 Oxygen Delivery Room Air Intake/Output Intake/Output: Intake & Output 12/23/22 12/24/22 12/25/22 12/26/22 23:59 23:59 23:59 23:59 Intake Total 2076 1730 Output Total 1900 1800 Balance 176 -70 Meds/Results Medications: Active Medications Generic Name Dose Route Start Last Admin Trade Name Freq PRN Reason Stop Dose Admin Acetaminophen 650 mg 12/25/22 08:14 12/26/22 09:32 Acetaminophen 325 Mg Tablet PO 650 mg Q6H PRN Administration Mild Pain (1-3) Or Fever Amiodarone HCl 200 mg 12/25/22 09:00 12/26/22 09:33 Amiodarone Hcl 200 Mg Tablet PO 200 mg DAILY CHRISTIANE Administration Apixaban 5 mg 12/25/22 09:00 12/26/22 09:33 Apixaban 5 Mg Tablet PO 5 mg BID CHRISTIANE Administration Atorvastatin Calcium 80 mg 12/25/22 21:00 12/25/22 20:35 Atorvastatin 40 Mg Tablet PO 01/24/23 20:59 80 mg HS CHRISTIANE Administration Buspirone HCl 5 mg 12/25/22 09:00 12/26/22 09:32 Buspirone Hcl 5 Mg Tablet PO 5 mg DAILY CHRISTIANE Administration Calcium Carbonate 500 mg 12/25/22 09:00 12/26/22 09:32 Calcium/Vitamin D 500 Mg Tablet PO 01/24/23 08:59 500 mg DAILY CHRISTIANE Administration Clopidogrel Bisulfate 75 mg 12/25/22 09:00 12/26/22 09:32 Clopidogrel Bisulfate 75 Mg Tablet PO 75 mg DAILY CHRISTIANE Administration Escitalopram Oxalate 10 mg 12/25/22 09:00 12/26/22 09:32 Escitalopram Oxalate 10 Mg Tablet PO 10 mg DAILY CHRISTIANE Administration Ferrous Sulfate 325 mg 12/25/22 09:00 12/26/22 09:33 Ferrous Sulfate [address] PO 325 mg BID CHRISTIANE Administration Furosemide 40 mg 12/25/22 09:00 12/26/22 09:41 Furosemide Inj 40 Mg/4 Ml Vial IV PUSH 40 mg BID CHRISTIANE Administration Metoprolol Succinate 25 mg 12/25/22 09:00 12/26/22 09:33 Metoprolol Succinate Ext Rel 25 Mg Tabcr PO 25 mg QAM CHRISTIANE Administration Multivitamins/Minerals 1 tab 12/25/22 09:00 12/26/22 09:42 Multivitamins /C Lutein (Centrum Silver) Tablet *Bkc PO 01/24/23 08:59 1 tab DAILY CHRISTIANE Administration Pantoprazole Sodium 40 mg 12/25/22 09:00 12/26/22 09:42 Pantoprazole 40 Mg Tablet PO 40 mg DAILY CHRISTIANE Administration Polyethylene Glycol 17 gm 12/25/22 08:15 12/26/22 09:46 Polyethylene Glycol 3350 17 Gm Powd.Pack PO 17 gm PRN PRN Administration CONSTIPATION Senna/Docusate Sodium 1 tab 12/25/22 21:00 12/25/22 20:35 Senna/Docusate Sodium Tablet PO 1 tab HS CHRISTIANE Administration Zolpidem Tartrate 5 mg 12/25/22
[2022-12-26 14:00] VITALS: BP 121/63; PULSE 52; RESP 18; TEMP 36.2; O2SAT 97
[2022-12-26] MEDS: guaiFENesin 12 HR 600 MG TABCR PO (17:23)
[2022-12-26 20:27] VITALS: O2SAT 97
[2022-12-26] MEDS: ATORVASTATIN 40 MG TABLET 80 MG PO (20:27)
[2022-12-26] MEDS: SENNA/DOCUSATE SODIUM TABLET 1 TAB PO (20:27)
[2022-12-26] MEDS: ZOLPIDEM TARTRATE (*CRX) 5 MG TABLET PO (20:28)
[2022-12-26 22:00] VITALS: BP 110/63; PULSE 52; RESP 20; TEMP 36.6; O2SAT 97
[2022-12-27 06:00] VITALS: BP 125/67; PULSE 53; RESP 20; TEMP 36.5; O2SAT 97
[2022-12-27 08:32] VITALS: PULSE 59
[2022-12-27] MEDS: busPIRone HCL 5 MG TABLET PO (08:32)
[2022-12-27] MEDS: CLOPIDOGREL BISULFATE 75 MG TABLET PO (08:32)
[2022-12-27] MEDS: METOPROLOL SUCCINATE EXT REL 25 MG TABCR PO (08:32)
[2022-12-27] MEDS: APIXABAN 5 MG TABLET PO ×2 (08:32→17:40)
[2022-12-27] MEDS: FERROUS SULFATE 325 MG TABLET DR PO ×2 (08:32→17:40)
[2022-12-27] MEDS: PANTOPRAZOLE 40 MG TABLET PO (08:32)
[2022-12-27] MEDS: MULTIVITAMINS /C LUTEIN (CENTRUM SILVER) TABLET *BKC 1 TAB PO (08:32)
[2022-12-27] MEDS: guaiFENesin 12 HR 600 MG TABCR PO ×2 (08:33→20:35)
[2022-12-27] MEDS: ESCITALOPRAM OXALATE 10 MG TABLET PO (08:33)
[2022-12-27 08:34] VITALS: PULSE 59
[2022-12-27] MEDS: FUROSEMIDE INJ 40 MG/4 ML VIAL IV PUSH ×2 (08:34→17:40)
[2022-12-27] MEDS: AMIODARONE HCL 200 MG TABLET PO (08:34)
[2022-12-27] MEDS: ACETAMINOPHEN 325 MG TABLET 650 MG PO ×3 (08:39→20:20)
--- NOTE | 2022-12-27 09:39 | PM.CNCAR ---
Assessment and Plan Assessment and plan (1) CHF (congestive heart failure): Code(s): I50.9 - Heart failure, unspecified Status: Acute Assessment and Plan: She is presenting with acute systolic congestive heart failure. Ejection fraction has diminished from previous echo. In June her ejection fraction was estimated at 55%. By most recent echo it is now 20-25%. Continue metoprolol. Continue IV furosemide. Will add Entresto 24/26 mg p.o. b.i.d. (2) Chronic anticoagulation: Code(s): Z79.01 - [employer] (current) use of anticoagulants Status: Acute Assessment and Plan: Despite recent severe profound anemia, she is back on Eliquis and blood counts are stable at this point. (3) Tobacco dependence: Code(s): F17.200 - Nicotine dependence, unspecified, uncomplicated Status: Acute (4) Coronary artery disease: Code(s): I25.10 - Atherosclerotic heart disease of [place] coronary artery without angina pectoris Status: Acute Assessment and Plan: Continue clopidogrel, metoprolol, statin. EKG does show anterolateral T-wave inversions. Will likely need further ischemic evaluation to ensure there is no early graft failure of the LOPEZ to the LAD (5) Paroxysmal atrial fibrillation: Code(s): I48.0 - Paroxysmal atrial fibrillation Status: Acute Assessment and Plan: In sinus rhythm at this point. on anticoagulation (6) Mitral valve replaced: Code(s): Z95.2 - Presence of prosthetic heart valve Status: Acute Assessment and Plan: Functioning normally History of Present Illness History of Present Illness Consult date/time: 12/27/22 09:39 Requesting physician: Femi Winter MD Consult reason: congestive heart failure Reason For Visit: CHF Exacerbation Narrative: Date of service 12/27/2022 Reason for consultation: CHF Requesting provider: Dr. Winter History: Patient is a 67-year-old female patient of Dr. Olson has a complex medical history including a history of paroxysmal atrial fibrillation, hypertension, mitral regurgitation status post mitral valve replacement and 2 vessel CABG. She was admitted last April was found in atrial fibrillation rapid ventricular response. She was successfully cardioverted and discharged home on Eliquis amiodarone diltiazem and metoprolol. She had a admission outside hospital in May for a non-STEMI and was found to have 75% eccentric stenosis of the LAD, 30% left main, 40% circumflex, 40% om, 50% mid RCA, 30% distal RCA, 40%% PDA EF of 40-45% with moderate to severe mitral regurgitation. In June 2022 showed what her LOPEZ to LAD and SVG to PDA and a bio mitral valve replacement by Dr. Perez. She presented to the hospital with worsening shortness of breath over the past couple of days. She did have some paroxysmal nocturnal dyspnea as well as orthopnea. No chest pain, syncope, presyncope, edema or palpitations. She has been receiving IV diuresis is feeling better. She did have a recent admission with a hemoglobin of 4.5. Workup was performed including previous upper and lower endoscopies. Review of Systems Review of Systems: All systems reviewed & are unremarkable except as noted in HPI and below Constitutional: Constitutional: Denies body ache(s) Eyes: Eyes: Denies blurry vision ENT: Reports Normal hearing present Cardiovascular: Cardiovascular: Denies chest pain Respiratory: Respiratory: Denies hemoptysis and Reports dyspnea Gastrointestinal: Gastrointestinal: Denies abdominal pain Genitourinary: Genitourinary: Denies hematuria Musculoskeletal: Musculoskeletal: Denies back pain Integumentary/Breasts: Skin/Breast: Denies pruritus Neurologic: Denies Abnormal speech present Psychiatric: Psychiatric: Denies anxiety Endocrine: Endocrine: Denies excessive sweating Hematologic/Lymphatic: Hematologic/Lymphatic: Denies easy bleeding Allergic/Immunologic: Allergic/Immun
--- NOTE | 2022-12-27 10:53 | PM.IMPN ---
Progress Note: A&P Assessment and Plan (1) Tobacco dependence: Code(s): F17.200 - Nicotine dependence, unspecified, uncomplicated Status: Acute (2) Chronic obstructive pulmonary disease: Code(s): J44.9 - Chronic obstructive pulmonary disease, unspecified Status: Acute (3) Coronary artery disease: Code(s): I25.10 - Atherosclerotic heart disease of [place] coronary artery without angina pectoris Status: Acute (4) Paroxysmal atrial fibrillation: Code(s): I48.0 - Paroxysmal atrial fibrillation Status: Acute Assessment and Plan: Heart rates in the 50s. Continue anticoagulation (5) CHF (congestive heart failure): Code(s): I50.9 - Heart failure, unspecified Status: Acute Assessment and Plan: EF 20-25%. Presumably a new diagnosis. Continue diuretic therapy. Entresto and spironolactone have been added. Consult Cardiology Respiratory status is much improved Subjective Date/time seen: 12/27/22 10:53 Interval history: No new complaints Exam Narrative: Awake alert oriented appears stated age Const: General: comfortable and no acute distress HENMT: Face/Nose/Sinus: Normal nares present Mouth: Yes moist mucous membranes Eyes: General: appearance normal, both eyes and all related structures Sclera: sclerae normal Neck: Neck: supple and no JVD Carotids: no bruits Chest: Other: No reproducible chest wall pain to palpation Resp: Effort & Inspection: normal respiratory effort Auscultation: diminished lung sounds Cardio: Rate: regular rate Rhythm: regular rhythm Heart sounds: no murmurs GI: Inspection: non-distended Auscultation: normal bowel sounds Skin: General skin exam: normal color Neuro: Cranial nerves: Yes Normal hearing present Speech: normal speech and No Abnormal speech present Sensory Exam: normal sensation Extrem: General: normal to inspection and no edema Psych: Mental Status: mental status grossly normal Objective Data Vital Signs Vital Signs: Vital Signs - 24 hr 12/26/22 14:00 12/26/22 20:00 12/26/22 22:00 Temperature 97.1 F L 97.8 F Pulse Rate 52 L 52 L Respiratory Rate 18 20 Blood Pressure 121/63 110/63 Pulse Oximetry 97 97 Oxygen Delivery Room Air 12/26/22 20:27 12/27/22 06:00 12/27/22 08:32 Temperature 97.7 F Pulse Rate 53 L 59 L Respiratory Rate 20 Blood Pressure 125/67 Pulse Oximetry 97 97 Oxygen Delivery Room Air 12/27/22 08:34 Temperature Pulse Rate 59 L Respiratory Rate Blood Pressure Pulse Oximetry Oxygen Delivery Intake/Output Intake/Output: Intake & Output 12/24/22 12/25/22 12/26/22 12/27/22 23:59 23:59 23:59 23:59 Intake Total 2076 1970 1330 Output Total 1900 3700 1550 Balance 176 -1730 -220 Meds/Results Medications: Active Medications Generic Name Dose Route Start Last Admin Trade Name Freq PRN Reason Stop Dose Admin Acetaminophen 650 mg 12/25/22 08:14 12/27/22 08:39 Acetaminophen 325 Mg Tablet PO 650 mg Q6H PRN Administration Mild Pain (1-3) Or Fever Amiodarone HCl 200 mg 12/25/22 09:00 12/27/22 08:34 Amiodarone Hcl 200 Mg Tablet PO 200 mg DAILY CHRISTIANE Administration Apixaban 5 mg 12/25/22 09:00 12/27/22 08:32 Apixaban 5 Mg Tablet PO 5 mg BID CHRISTIANE Administration Atorvastatin Calcium 80 mg 12/25/22 21:00 12/26/22 20:27 Atorvastatin 40 Mg Tablet PO 01/24/23 20:59 80 mg HS CHRISTIANE Administration Buspirone HCl 5 mg 12/25/22 09:00 12/27/22 08:32 Buspirone Hcl 5 Mg Tablet PO 5 mg DAILY CHRISTIANE Administration Calcium Carbonate 500 mg 12/25/22 09:00 12/27/22 08:34 Calcium/Vitamin D 500 Mg Tablet PO 01/24/23 08:59 500 mg DAILY CHRISTIANE Administration Clopidogrel Bisulfate 75 mg 12/25/22 09:00 12/27/22 08:32 Clopidogrel Bisulfate 75 Mg Tablet PO 75 mg DAILY CHRISTIANE Administration Escitalopram Oxalate 10 mg 12/25/22 09:00 12/27/22 08:33 Escitalopram Oxal
[2022-12-27] MEDS: SPIRONOLACTONE 25 MG TABLET PO (11:44)
[2022-12-27 14:00] VITALS: BP 121/69; PULSE 61; RESP 22; TEMP 36.1; O2SAT 98
[2022-12-27] MEDS: ATORVASTATIN 40 MG TABLET 80 MG PO (20:20)
[2022-12-27] MEDS: SENNA/DOCUSATE SODIUM TABLET 1 TAB PO (20:21)
[2022-12-27] MEDS: ZOLPIDEM TARTRATE (*CRX) 5 MG TABLET PO (20:21)
[2022-12-27 20:23] VITALS: O2SAT 98
[2022-12-27 22:00] VITALS: BP 128/74; PULSE 56; RESP 16; TEMP 36.8; O2SAT 97
[2022-12-28 06:00] VITALS: BP 118/66; PULSE 59; RESP 16; TEMP 36.3; O2SAT 98
[2022-12-28] MEDS: ACETAMINOPHEN 325 MG TABLET 650 MG PO ×3 (06:10→18:05)
[2022-12-28 08:18] VITALS: PULSE 70
[2022-12-28] MEDS: AMIODARONE HCL 200 MG TABLET PO (08:18)
[2022-12-28 08:19] VITALS: PULSE 70
[2022-12-28] MEDS: METOPROLOL SUCCINATE EXT REL 25 MG TABCR PO (08:19)
[2022-12-28] MEDS: busPIRone HCL 5 MG TABLET PO (08:19)
[2022-12-28] MEDS: MULTIVITAMINS /C LUTEIN (CENTRUM SILVER) TABLET *BKC 1 TAB PO (08:19)
[2022-12-28] MEDS: APIXABAN 5 MG TABLET PO ×2 (08:19→17:01)
[2022-12-28] MEDS: guaiFENesin 12 HR 600 MG TABCR PO (08:19)
[2022-12-28] MEDS: FERROUS SULFATE 325 MG TABLET DR PO ×2 (08:19→17:01)
[2022-12-28] MEDS: PANTOPRAZOLE 40 MG TABLET PO (08:19)
[2022-12-28] MEDS: ESCITALOPRAM OXALATE 10 MG TABLET PO (08:19)
[2022-12-28] MEDS: CLOPIDOGREL BISULFATE 75 MG TABLET PO (08:19)
[2022-12-28] MEDS: SPIRONOLACTONE 25 MG TABLET PO (08:20)
[2022-12-28] MEDS: FUROSEMIDE INJ 40 MG/4 ML VIAL IV PUSH (08:20)
[2022-12-28 10:31] LABS: Anion Gap 5 mmol/L (8-16); Blood Urea Nitrogen 16 mg/dL (7-17); Calcium 9.1 mg/dL (8.4-10.2); Carbon Dioxide 32 mmol/L (22-30); Chloride 95 mmol/L (98-107); Estimated CRCL calculation 57 ml/min; Estimated Glomerular Filt Rate > 60; Glucose 101 mg/dL (65-110); Potassium 3.4 mmol/L (3.4-5.0); Sodium 132 mmol/L (137-145)
--- NOTE | 2022-12-28 10:51 | P.CDI_ITS ---
Have not seen the patient. Please forward assigned attending physician CDI Query Clarification Request 12/25/22 CHEST CTA states: Impression Probable single small pulmonary embolus in a segmental branch in the right upper lobe. If you agree with this diagnosis please add as a problem to the assessment and plan. Reminder [employer] cannot capture Impressions from CTA results.
--- NOTE | 2022-12-28 11:49 | PM.IMPN ---
Progress Note: A&P Assessment and Plan (1) Tobacco dependence: Code(s): F17.200 - Nicotine dependence, unspecified, uncomplicated Status: Acute (2) Chronic obstructive pulmonary disease: Code(s): J44.9 - Chronic obstructive pulmonary disease, unspecified Status: Acute (3) Coronary artery disease: Code(s): I25.10 - Atherosclerotic heart disease of [place] coronary artery without angina pectoris Status: Acute (4) Paroxysmal atrial fibrillation: Code(s): I48.0 - Paroxysmal atrial fibrillation Status: Acute Assessment and Plan: Heart rates in the 50s. Continue anticoagulation (5) CHF (congestive heart failure): Code(s): I50.9 - Heart failure, unspecified Status: Acute Assessment and Plan: EF 20-25%. Presumably a new diagnosis. Continue diuretic therapy. reports she has been on lisinopril for years w cough as se, no additional issues - will start entrersto spironolactone have been added. Consult Cardiology Respiratory status is much improved Subjective Date/time seen: 12/28/22 11:49 Interval history: breathing is better tolerating diuretics no se noted Exam Narrative: Awake alert oriented appears stated age Const: General: comfortable and no acute distress HENMT: Face/Nose/Sinus: Normal nares present Mouth: Yes moist mucous membranes Eyes: General: appearance normal, both eyes and all related structures Sclera: sclerae normal Neck: Neck: supple and no JVD Carotids: no bruits Chest: Other: No reproducible chest wall pain to palpation Resp: Effort & Inspection: normal respiratory effort Auscultation: diminished lung sounds Cardio: Rate: regular rate Rhythm: regular rhythm Heart sounds: no murmurs GI: Inspection: non-distended Auscultation: normal bowel sounds Skin: General skin exam: normal color Neuro: Cranial nerves: Yes Normal hearing present Speech: normal speech and No Abnormal speech present Sensory Exam: normal sensation Extrem: General: normal to inspection and no edema Psych: Mental Status: mental status grossly normal Objective Data Vital Signs Vital Signs: Vital Signs - 24 hr 12/27/22 14:00 12/27/22 20:23 12/27/22 20:00 Temperature 96.9 F L Pulse Rate 61 Respiratory Rate 22 H Blood Pressure 121/69 Pulse Oximetry 98 98 Oxygen Delivery Room Air Room Air 12/27/22 22:00 12/28/22 06:00 12/28/22 08:18 Temperature 98.3 F 97.4 F L Pulse Rate 56 L 59 L 70 Respiratory Rate 16 16 Blood Pressure 128/74 118/66 Pulse Oximetry 97 98 Oxygen Delivery 12/28/22 08:19 12/28/22 08:20 Temperature Pulse Rate 70 Respiratory Rate Blood Pressure Pulse Oximetry Oxygen Delivery Room Air Intake/Output Intake/Output: Intake & Output 12/25/22 12/26/22 12/27/22 12/28/22 23:59 23:59 23:59 23:59 Intake Total 2076 1970 1852 440 Output Total 1900 3700 2350 700 Balance 176 -1730 -498 -260 Meds/Results Medications: Active Medications Generic Name Dose Route Start Last Admin Trade Name Freq PRN Reason Stop Dose Admin Acetaminophen 650 mg 12/25/22 08:14 12/28/22 06:10 Acetaminophen 325 Mg Tablet PO 650 mg Q6H PRN Administration Mild Pain (1-3) Or Fever Amiodarone HCl 200 mg 12/25/22 09:00 12/28/22 08:18 Amiodarone Hcl 200 Mg Tablet PO 200 mg DAILY CHRISTIANE Administration Apixaban 5 mg 12/25/22 09:00 12/28/22 08:19 Apixaban 5 Mg Tablet PO 5 mg BID CHRISTIANE Administration Atorvastatin Calcium 80 mg 12/25/22 21:00 12/27/22 20:20 Atorvastatin 40 Mg Tablet PO 01/24/23 20:59 80 mg HS CHRISTIANE Administration Buspirone HCl 5 mg 12/25/22 09:00 12/28/22 08:19 Buspirone Hcl 5 Mg Tablet PO 5 mg DAILY CHRISTIANE Administration Calcium Carbonate 500 mg 12/25/22 09:00 12/28/22 08:20 Calcium/Vitamin D 500 Mg Tablet PO 01/24/23 08:59 500 mg DAILY CHRISTIANE Administration Clopidogrel Bisulfate 75 mg 12/25/22 09:00 12/28/22
--- NOTE | 2022-12-28 13:26 | PM.PNCARD ---
Progress Note: A&P Assessment and Plan (1) CHF (congestive heart failure): Code(s): I50.9 - Heart failure, unspecified Status: Acute Assessment and Plan: She is presenting with acute systolic congestive heart failure. Ejection fraction has diminished from previous echo. In June her ejection fraction was estimated at 55%. By most recent echo it is now 20-25%. Improved with IV furosemide Shift to p.o. furosemide today Continue metoprolol Will add Entresto 24/26 mg p.o. b.i.d. Has documented allergy to MICHAELLE, but pt. states she developed a cough with MICHAELLE, not true allergy. She denies any angioedema or breathing problems with MICHAELLE. Therefore, will initiate Entresto. Continue spironolactone 25mg daily BMP in a.m. 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 (3) Tobacco dependence: Code(s): F17.200 - Nicotine dependence, unspecified, uncomplicated Status: Acute (4) Coronary artery disease: Code(s): I25.10 - Atherosclerotic heart disease of [place] coronary artery without angina pectoris Status: Acute Assessment and Plan: Continue clopidogrel, metoprolol, statin. EKG does show anterolateral T-wave inversions. Will likely need further ischemic evaluation to ensure there is no early graft failure of the LOPEZ to the LAD (5) Paroxysmal atrial fibrillation: Code(s): I48.0 - Paroxysmal atrial fibrillation Status: Acute Assessment and Plan: In sinus rhythm at this point. on anticoagulation (6) Mitral valve replaced: Code(s): Z95.2 - Presence of prosthetic heart valve Status: Acute Assessment and Plan: Functioning normally Subjective Date/time seen: 12/28/22 13:26 Interval history: Cardiology follow up for CHF Feeling better today. Denies any shortness of breath, swelling, palpitations. Does have some intermittent left sided chest pain which has been ongoing for several months. Review of Systems Review of Systems: All systems reviewed & are unremarkable except as noted in HPI and below Constitutional: Constitutional: Denies body ache(s) and Denies excessive sweating Eyes: Eyes: Denies blurry vision ENT: Reports Normal hearing present Cardiovascular: Cardiovascular: Reports chest pain, Reports chest pain at rest, Denies chest pain with activity and Reports dyspnea Respiratory: Respiratory: Denies hemoptysis and Reports dyspnea Gastrointestinal: Gastrointestinal: Denies abdominal pain Genitourinary: Genitourinary: Denies hematuria Musculoskeletal: Musculoskeletal: Denies back pain Integumentary/Breasts: Skin/Breast: Denies pruritus Neurologic: Reports Normal hearing present and Denies Abnormal speech present Psychiatric: Psychiatric: Denies anxiety Endocrine: Endocrine: Denies excessive sweating Hematologic/Lymphatic: Hematologic/Lymphatic: Denies easy bleeding Allergic/Immunologic: Allergic/Immunologic: Denies GI upset with certain foods Exam Narrative: Awake alert oriented appears stated age Const: General: comfortable and no acute distress HENMT: Face/Nose/Sinus: Normal nares present Mouth: Yes moist mucous membranes Eyes: General: appearance normal, both eyes and all related structures Sclera: sclerae normal Neck: Neck: supple and no JVD Carotids: no bruits Chest: Other: Reproducible chest wall pain to palpation Resp: Effort & Inspection: normal respiratory effort Auscultation: diminished lung sounds Cardio: Rate: regular rate Rhythm: regular rhythm Heart sounds: no murmurs GI: Inspection: non-distended Auscultation: normal bowel sounds Skin: General skin exam: normal color Neuro: Cranial nerves: Yes Normal hearing present S
[2022-12-28 14:00] VITALS: BP 125/77; PULSE 70; RESP 16; TEMP 36.6; O2SAT 100
[2022-12-28] MEDS: FUROSEMIDE 40 MG TABLET PO (17:19)
[2022-12-28] MEDS: SENNA/DOCUSATE SODIUM TABLET 1 TAB PO (20:30)
[2022-12-28] MEDS: ZOLPIDEM TARTRATE (*CRX) 5 MG TABLET PO (20:30)
[2022-12-28] MEDS: SACUBITRIL/VALSARTAN 24-26 MG TABLET 1 TAB PO (20:30)
[2022-12-28] MEDS: ATORVASTATIN 40 MG TABLET 80 MG PO (20:30)
[2022-12-28 21:42] VITALS: BP 126/67; PULSE 60; RESP 16; TEMP 36.3; O2SAT 100
[2022-12-29] MEDS: ACETAMINOPHEN 325 MG TABLET 650 MG PO ×2 (00:41→08:43)
[2022-12-29 06:00] VITALS: BP 107/65; PULSE 49; RESP 16; TEMP 36; O2SAT 98
[2022-12-29 08:44] VITALS: PULSE 62
[2022-12-29] MEDS: METOPROLOL SUCCINATE EXT REL 25 MG TABCR PO (08:44)
[2022-12-29] MEDS: SACUBITRIL/VALSARTAN 24-26 MG TABLET 1 TAB PO (08:44)
[2022-12-29] MEDS: FUROSEMIDE 40 MG TABLET PO (08:44)
[2022-12-29 08:47] VITALS: PULSE 62
[2022-12-29] MEDS: SPIRONOLACTONE 25 MG TABLET PO (08:47)
[2022-12-29] MEDS: FERROUS SULFATE 325 MG TABLET DR PO (08:47)
[2022-12-29] MEDS: PANTOPRAZOLE 40 MG TABLET PO (08:47)
[2022-12-29] MEDS: CLOPIDOGREL BISULFATE 75 MG TABLET PO (08:47)
[2022-12-29] MEDS: ESCITALOPRAM OXALATE 10 MG TABLET PO (08:47)
[2022-12-29] MEDS: AMIODARONE HCL 200 MG TABLET PO (08:47)
[2022-12-29] MEDS: MULTIVITAMINS /C LUTEIN (CENTRUM SILVER) TABLET *BKC 1 TAB PO (08:47)
[2022-12-29] MEDS: busPIRone HCL 5 MG TABLET PO (08:47)
[2022-12-29] MEDS: APIXABAN 5 MG TABLET PO (08:47)
[2022-12-29] MEDS: guaiFENesin 12 HR 600 MG TABCR PO (10:06)
--- NOTE | 2022-12-29 11:10 | PM.DS ---
DS: Admitting Diagnosis Discharge Date December 29, 2022 Admitting Diagnosis CHF, acute on chronic systolic DS: Discharge Diagnosis Discharge Diagnosis (1) Tobacco dependence: Code(s): F17.200 - Nicotine dependence, unspecified, uncomplicated Status: Acute (2) Chronic obstructive pulmonary disease: Code(s): J44.9 - Chronic obstructive pulmonary disease, unspecified Status: Acute (3) Coronary artery disease: Code(s): I25.10 - Atherosclerotic heart disease of [place] coronary artery without angina pectoris Status: Acute (4) Paroxysmal atrial fibrillation: Code(s): I48.0 - Paroxysmal atrial fibrillation Status: Acute Assessment and Plan: Heart rates in the 50s. Continue anticoagulation (5) CHF (congestive heart failure): Code(s): I50.9 - Heart failure, unspecified Status: Acute Assessment and Plan: EF 20-25%. Presumably a new diagnosis. Continue diuretic therapy. reports she has been on lisinopril for years w cough as se, no additional issues - will start entrersto spironolactone have been added. Consult Cardiology Respiratory status is much improved DS: Summary Hospital Course Hospital Course: 67-year-old came in with shortness of breath. Echocardiogram revealed CHF acute on chronic with an EF of 25%. This is new. Cardiology was consulted and adjusted medications. She is breathing much better able to ambulate get around the room. She can be discharged. She will need follow-up with her sociology research assistant for outpatient ischemic workup. Time Spent with Patient Time attestation: Total time spent providing and/or coordinating discharge services: Exam Narrative: Awake alert oriented appears stated age Const: General: comfortable and no acute distress HENMT: Face/Nose/Sinus: Normal nares present Mouth: Yes moist mucous membranes Eyes: General: appearance normal, both eyes and all related structures Sclera: sclerae normal Neck: Neck: supple and no JVD Carotids: no bruits Chest: Other: No reproducible chest wall pain to palpation Resp: Effort & Inspection: normal respiratory effort Auscultation: diminished lung sounds Cardio: Rate: regular rate Rhythm: regular rhythm Heart sounds: no murmurs GI: Inspection: non-distended Auscultation: normal bowel sounds Skin: General skin exam: normal color Neuro: Cranial nerves: Yes Normal hearing present Speech: normal speech and No Abnormal speech present Sensory Exam: normal sensation Extrem: General: normal to inspection and no edema Psych: Mental Status: mental status grossly normal Discharge Plan Discharge Attending physician on discharge: Femi Winter Consulting providers: Aurelio Marrero Discharging Clinician: Femi Winter Patient Disposition: Home, Self-Care Activity: as tolerated Diet: as tolerated Patient Instructions: Antibiotic Form, Clopidogrel (By mouth), Apixaban (By mouth) Stand Alone Forms: General Discharge Information Follow-up/Referrals: Aurelio Marrero MD [Physician] - Omar Holcomb PA-C [Primary Care Provider] - Discharge Medications: New furosemide 40 mg tablet 40 mg PO DAILY Qty: 60 0RF spironolactone 25 mg Tablet 25 mg PO QAM 30 Days Qty: 30 0RF Entresto 24-26 mg Tablet 1 tablet PO Q12HR 30 Days Qty: 60 0RF Continued amiodarone 200 mg tablet 200 mg PO DAILY clopidogrel 75 mg tablet 75 mg PO DAILY Hold Instructions: Resume on 12/19/22. metoprolol succinate 25 mg tablet extended release 24 hr 25 mg PO QAM Eliquis 5 mg tablet 5 mg PO BID Hold Instructions: Resume on 12/19/22. Caltrate 1 tab-cap PO DAILY Centrum Silver Women 1 tab-cap PO DAILY atorvastatin 80 mg PO HS Rx Instructions: 80mg buspirone 5 mg tablet 5 mg PO DAILY ferrous sulfate 325 mg (65 mg iron) Tablet,Delayed Release (Dr/Ec) 325 mg
--- NOTE | 2022-12-30 06:03 | WPDCDIQUERY2 ---
CDI Query Clarification Request 12/25/22 Chest CTA states Impression Probable single small pulmonary embolus in a segmental branch in the right upper lobe. If you agree with this diagnosis please add as a problem to the assessment and plan. Reminder: Coders cannot capture Impressions from CTA results.
== END 2022-12-29 14:00 | disposition home or self-care (01) | DRG 291 ==
LOC: ANHED 01:58 → ANH3MEDSUR 05:52
PROVIDERS: Admitting Provider Internal Medicine; Emergency Provider Emergency Medicine; PCP Physician Assistant; Visit Provider Chiropractor
DX: I11.0 Hypertensive heart disease with heart failure (principal); I50.23 Acute on chronic systolic (congestive) heart failure; I48.0 Paroxysmal atrial fibrillation; J44.9 Chronic obstructive pulmonary disease, unspecified; E78.5 Hyperlipidemia, unspecified; F17.210 Nicotine dependence, cigarettes, uncomplicated; F41.9 Anxiety disorder, unspecified; I25.10 Atherosclerotic heart disease of native coronary artery without angina pectoris; Z20.822 Contact with and (suspected) exposure to COVID-19; Z95.1 Presence of aortocoronary bypass graft; Z79.01 Long term (current) use of anticoagulants; Z95.3 Presence of xenogenic heart valve
CPT/HCPCS: 36415; 71046; 71275; 80048; 80053; 81001; 83880; 84484; 85025; 85610; 85730; 87636; 93005; 96361; 96374; 96375; 99285; A9270; C8929; G0378; J1940; J2270; J7030; Q9957; Q9967

== ENCOUNTER 2023-01-28 09:50 | Outpatient (CLI) | payer MEDICARE, SELFPAY ==
[2023-01-28 10:31] LABS: Hematocrit 39.7 % (37.0-47.0); Hemoglobin 12.1 g/dL (12.0-15.0); Mean Corpuscular HGB Conc 30.5 g/dl (32-36); Mean Corpuscular Hemoglobin 27.9 pg (26-34); Mean Corpuscular Volume 91.5 fl (80-100); Mean Platelet Volume 9.7 fl (7.4-10.4); Platelet Count Result 199 k/mm3 (150-375); Red Blood Count 4.34 M/mm3 (4.2-5.4); Red Cell Distribution Width 23.5 % (11.5-14.5); White Blood Count 5.6 K/mm3 (4.5-10.0)
[2023-01-28 10:41] LABS: Alanine Aminotransferase 28 U/L (6-35); Albumin Level 4.4 g/dL (3.5-5.1); Alkaline Phosphatase 69 U/L (38-126); Anion Gap 5 mmol/L (8-16); Aspartate Amino Transferase 41 U/L (14-36); Bilirubin,Total 0.7 mg/dL (0.2-1.3); Blood Urea Nitrogen 15 mg/dL (7-17); Calcium 9.2 mg/dL (8.4-10.2); Carbon Dioxide 31 mmol/L (22-30); Chloride 102 mmol/L (98-107); Estimated Glomerular Filt Rate > 60; Glucose 88 mg/dL (65-110); Potassium 4.3 mmol/L (3.4-5.0); Sodium 138 mmol/L (137-145)
[2023-01-28 11:08] LABS: Iron 149 ug/dL (37-170)
[2023-01-28 11:18] LABS: Percent Iron Saturation 36 % (20-50)
== END 2023-01-28 09:51 | disposition home or self-care (01) ==
PROVIDERS: PCP Physician Assistant; Visit Provider Physician Assistant
DX: D64.9 Anemia, unspecified (principal); I10 Essential (primary) hypertension; E87.6 Hypokalemia
CPT/HCPCS: 36415; 80053; 82728; 83540; 83550; 85027

== ENCOUNTER 2023-07-14 10:22 | Outpatient (CLI) | payer MEDICARE, SELFPAY ==
[2023-07-14 11:46] LABS: Appearance Urine Turbid (Clear); Bacteria Urine 4+ /hpf; Bilirubin Urine Negative (Negative); Blood Urine 2+ (Negative); Color Urine Yellow (Yellow); Glucose Urine UA Negative (Negative); Ketones Urine Negative (Negative); Leukocyte Esterase Ur 3+ LEU/UL (NEGATIVE); Nitrate Urine Positive (Negative); Non Pathogenic Casts 0-2; Protein Urine 2+ mg/dL (Negative); Specific Grav Ur 1.012 (1.001-1.035); Squamous Epithelial Cell Urine Occasional /hpf (Few); WBC Urine >100 /hpf (0-3)
[2023-07-14 11:50] LABS: Add Urine Microscopic? YES
[2023-07-14 11:57] LABS: Alanine Aminotransferase 17 U/L (6-35); Albumin Level 4.5 g/dL (3.5-5.1); Alkaline Phosphatase 75 U/L (38-126); Anion Gap 2 mmol/L (8-16); Aspartate Amino Transferase 28 U/L (14-36); Bilirubin,Total 1.2 mg/dL (0.2-1.3); Blood Urea Nitrogen 8 mg/dL (7-17); Calcium 9.4 mg/dL (8.4-10.2); Carbon Dioxide 32 mmol/L (22-30); Chloride 101 mmol/L (98-107); Estimated Glomerular Filt Rate > 60; Glucose 93 mg/dL (65-110); Potassium 4.3 mmol/L (3.4-5.0); Sodium 135 mmol/L (137-145)
== END 2023-07-14 10:23 | disposition home or self-care (01) ==
PROVIDERS: PCP Physician Assistant; Referring Provider Internal Medicine Cardiovascular Disease; Visit Provider Physician Assistant
DX: R30.0 Dysuria (principal); R31.9 Hematuria, unspecified; Z79.899 Other long term (current) drug therapy
CPT/HCPCS: 36415; 80053; 81001; 84443; 87077; 87086; 87088; 87186

== ENCOUNTER 2023-08-16 13:05 | Outpatient (CLI) | payer MEDICARE, SELFPAY ==
--- NOTE | 2023-08-17 12:59 | P.PCNPFT_ITS ---
PFT Procedure Performed PFT Procedure Performed Plethysmography (Lung Vol) Diffusing Cap (DLCO) Flow Vol Loop Spirometry w/o Bronchodil PFT Interpretation This is a pulmonary function test with spirometry, plethysmography and diffusing capacity. The test was performed and results interpreted in accordance with the 2019 and 2005 ATS/ERS Task Force guidelines respectively using the Global Lung Function Initiative-2012 reference equations. Patient demonstrated good effort and cooperation. Reproducibility criteria were met. The quality of the spirometry maneuver was Grade A. Findings: Spirometry: There is decreased maximal expiratory airflow at all lung volumes with concave expiratory flow tracing. The FVC is 2.03 L, 78% predicted. The FEV1 is 1.20 L, 59% predicted. The FEV1: FVC ratio is 59%. Plethysmography: The total lung capacity is 4.34 L, 94% predicted. The functional residual capacity is 2.99 L, 115% predicted. The residual volume is 2.32 L, 115% predicted. Diffusing capacity: The diffusing capacity unadjusted for hemoglobin and carboxyhemoglobin is 7.5, 39% predicted. The diffusing capacity adjusted for alveolar volume is 2.51, 56% predicted. Impression: There is a moderately severe obstructive abnormality. The lung volumes are normal. The diffusing capacity unadjusted for hemoglobin and carboxyhemoglobin is moderately decreased and normalizes when adjusted for alveolar volume. Impression: There is a moderately severe restrictive ventilatory abnormality. Th e spirometry is normal without evidence of an obstructive abnormality. The diffusing capacity unadjusted for hemoglobin and carboxyhemoglobin is severely decreased and remains moderately decreased when adjusted for alveolar volume. There are no prior studies for comparison
== END 2023-08-16 13:06 | disposition home or self-care (01) ==
LOC: ANHPFT 13:06
PROVIDERS: PCP Physician Assistant; Visit Provider Internal Medicine Cardiovascular Disease
DX: Z79.899 Other long term (current) drug therapy (principal); R94.2 Abnormal results of pulmonary function studies
CPT/HCPCS: 94375; 94726; 94729

== ENCOUNTER 2024-01-03 11:33 | Outpatient (CLI) | payer MEDICARE, SELFPAY ==
[2024-01-03 12:17] LABS: Alanine Aminotransferase 13 U/L (6-35); Albumin Level 4.5 g/dL (3.5-5.1); Alkaline Phosphatase 61 U/L (38-126); Anion Gap 9 mmol/L (4-12); Aspartate Amino Transferase 28 U/L (14-36); Bilirubin,Total 0.8 mg/dL (0.2-1.3); Blood Urea Nitrogen 9 mg/dL (7-17); Calcium 9.2 mg/dL (8.4-10.2); Carbon Dioxide 29 mmol/L (22-30); Chloride 99 mmol/L (98-107); Estimated Glomerular Filt Rate > 60; Glucose 85 mg/dL (65-110); Potassium 4.1 mmol/L (3.4-5.0); Sodium 137 mmol/L (137-145)
== END 2024-01-03 11:34 | disposition home or self-care (01) ==
PROVIDERS: PCP Internal Medicine; Visit Provider Internal Medicine Cardiovascular Disease
DX: Z51.81 Encounter for therapeutic drug level monitoring (principal); Z79.899 Other long term (current) drug therapy
CPT/HCPCS: 36415; 80053; 84443

== ENCOUNTER 2024-06-26 11:10 | Emergency (ER) | payer MEDICARE, SELFPAY ==
--- NOTE | ~2024-06-26 | CT_ITS ---
EXAMINATION: CT lumbar spine wo con DATE: 06/26/2024 13:31 INDICATION: Low back pain. TECHNIQUE: Computed tomography (CT) of the lumbar spine was performed without intravenous contrast. A utomated exposure control and iterative reconstruction technique were employed. The dose-length produ ct was 357.27 mGy-cm. COMPARISON: CT abdomen and pelvis 12/12/2022 FINDINGS: There is 4 mm anterolisthesis of L4 on L5. There is a burst fracture of L2 with 2/5 loss of height and retropulsion of bone 4 mm into central spinal canal. There is a burst fracture of L5 with 1/5 loss of height and retropulsion of bone 4 mm into central spinal canal. There is mildly decrease d disc height at L3-L4. There are healing insufficiency fractures involving the S2 segment and bilate ral sacral ala. The following disc levels are specifically discussed: L1-L2: The disc does not extend beyond the endplate margins. There is mild bilateral facet joint oste oarthritis. There is no neural foraminal stenosis. There is no central canal stenosis. L2-L3: The disc is bulging. There is mild bilateral facet joint osteoarthritis. There is mild bilater al neural foraminal stenosis. There is mild central canal stenosis. L3-L4: The disc is bulging. There is moderate bilateral facet joint osteoarthritis. There is mild nell ateral neural foraminal stenosis. There is mild central canal stenosis. L4-L5: The disc is bulging. There is severe bilateral facet joint osteoarthritis. There is mild bilat eral neural foraminal stenosis. There is mild central canal stenosis. L5-S1: The disc is bulging. There is moderate bilateral facet joint osteoarthritis. There is mild nell ateral neural foraminal stenosis. There is mild central canal stenosis. IMPRESSION: 1. Acute versus subacute burst fractures of L2 and L5. 2. Healing sacral insufficiency fractures. 3. Moderate lumbar spondylosis. Reviewed, dictated and finalized at location A. RNMENT INSTRUCTOR
[2024-06-26 12:05] VITALS: BP 149/61; PULSE 65; RESP 15; TEMP 36.4; O2SAT 100
--- NOTE | 2024-06-26 13:14 | ED.BACK ---
HPI - Back Pain/Injury General Chief Complaint: Back Pain/Injury <Abigail Constantino PA-C - Last Filed: 06/28/24 17:49> Stated Complaint: lower back pain x 4 months <JOSE J Carl Last Filed: 06/28/24 17:49> Time Seen by Provider: 06/26/24 13:14 <Abigail Constantino PA-C - Last Filed: 06/28/24 17:49> Focused HPI: This is a 68 year old female that presents to the ER for low back pain. Ongoing over the last 4 months. No known injury or trauma. She has been taking muscle relaxer and steroid without relief. Denies saddle anesthesia or bowel/bladder incontinence. GENERAL: Elderly, well-nourished, and in no acute distress. HEAD: Normocephalic, atraumatic. CHEST: Clear to auscultation. ?No respiratory distress. HEART: Regular rate and rhythm.? NEURO: ?Alert and oriented x3. Patient screened in triage and initial orders placed.? ?Additional care and disposition to be based upon?diagnostic testing and treatment. <JOSE J Carl Last Filed: 06/28/24 17:49> Related Data Home Medications: Home Medications ?Medication ?Instructions ?Recorded ?Confirmed ?Last Taken ?Type Caltrate 1 tab-cap PO DAILY 09/19/22 04/05/24 12/24/22 09:00 History Centrum Silver Women 1 tab-cap PO DAILY 09/19/22 04/05/24 12/24/22 09:00 History amiodarone 200 mg tablet 200 mg PO DAILY 09/19/22 04/05/24 12/24/22 09:00 History clopidogrel 75 mg tablet 75 mg PO DAILY 09/19/22 04/05/24 12/24/22 09:00 History atorvastatin 80 mg PO HS 10/14/22 04/05/24 12/24/22 09:00 History <JOSE J Carl Last Filed: 06/28/24 17:49> Allergies/Adverse Reactions: Allergies Allergy/AdvReac Type Severity Reaction Status Date / Time MICHAELLE Inhibitors Allergy Unknown Unknown Verified 06/26/24 12:11 <JOSE J Carl Last Filed: 06/28/24 17:49> Review of Systems Review of Systems: All systems reviewed & are unremarkable except as noted in HPI and below <Abigail Constantino PA-C - Last Filed: 06/28/24 17:49> [facility] Past Medical History Medical History: Medical History (Updated 06/28/24 @ 17:49 by Abigail Constantino PA-C) Hyperlipidemia BMI 26.0-26.9,adult CHF (congestive heart failure) Erosive gastritis Chronic anticoagulation Tobacco dependence Chronic obstructive pulmonary disease Coronary artery disease Paroxysmal atrial fibrillation Hypertension Anxiety <Abigail Constantino PA-C - Last Filed: 06/28/24 17:49> Surgical History Surgical History: Surgical History History of mitral valve replacement with bioprosthetic valve History of coronary artery bypass graft x 2 History of tonsillectomy History of stress incontinence procedure using tension free vaginal tape (2002) History of cardiac catheterization History of incisional hernia repair (09/2011) History of tubal ligation History of total abdominal hysterectomy and bilateral salpingo-oophorectomy (2002) <Abigail Constantino PA-C - Last Filed: 06/28/24 17:49> Family History Family History: Family History (Updated 04/05/24 @ 13:19 by ADRY Elena) Father Family history of heart disease in male family member before age 55 Family history of coronary artery disease Sibling Hypertension Mother Other Cerebrovascular accident <Abigail Constantino PA-C - Last Filed: 06/28/24 17:49> Social History Social History: Social History (Updated 04/05/24 @ 13:21 by ADRY Elena) Social History: Surrogate medical decision maker: Codi Calle, son. Code status: Full code. Smoking packs per day: 1 Smoking cigarettes per day: 20.0 Smoking status: Current every day smoker Tobacco type: cigarettes Second hand tobacco smoke exposure: Yes Additional smoking assessment comments: Has smoked up to 2 packs a day. 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 HEAD: Normocephalic, atraumatic. EYES: EOMI. CHEST: Clear to auscultation. No respiratory distress. No wheezes rales or rhonchi HEART: Regular rate and rhythm. No murmur heard. Normal peripheral pulses. EXTREMITIES: Normal range of motion. No edema. SKIN: Warm, dry, no rash. NEURO: No focal deficits. Alert and oriented x3. PSYCH: Normal mood and affect <Abigail Constantino PA-C - Last Filed: 06/28/24 17:49> Course Vital Signs Vital signs: Vital Signs Temperature 97.5 F L 06/26/24 12:05 Pulse Rate 65 06/26/24 12:05 Respiratory Rate 15 06/26/24 12:05 Blood Pressure 149/61 H 06/26/24 12:05 Pulse Oximetry 100 06/26/24 12:05 Oxygen Delivery Room Air 06/26/24 12:05 Temperature 97.5 F L 06/26/24 12:05 Pulse Rate 59 L 06/26/24 15:09 Respiratory Rate 17 06/26/24 15:09 Blood Pressure 134/76 06/26/24 15:09 Pulse Oximetry 96 06/26/24 15:09 Oxygen Delivery Room Air 06/26/24 12:05 <JOSE J Carl Last Filed: 06/28/24 17:49> Vital Signs Temperature 97.5 F L 06/26/24 12:05 Pulse Rate 65 06/26/24 12:05 Respiratory Rate 15 06/26/24 12:05 Blood Pressure 149/61 H 06/26/24 12:05 Pulse Oximetry 100 06/26/24 12:05 Oxygen Delivery Room Air 06/26/24 12:05 Temperature 97.5 F L 06/26/24 12:05 Pulse Rate 59 L 06/26/24 15:09 Respiratory Rate 17 06/26/24 15:09 Blood Pressure 134/76 06/26/24 15:09 Pulse Oximetry 96 06/26/24 15:09 Oxygen Delivery Room Air 06/26/24 12:05 <Godwin Peguero MD - Last Filed: 06/26/24 19:57> MDM - Back Pain/Injury MDM Narrative Medical decision making narrative: 68-year-old female presenting to the emergency department for evaluation for acute on chronic back pain over the course of the last 2 weeks. Patient denies any loss of bowel or bladder control. CT lumbar spine does show acute versus subacute fractures of L2 and L5. Patient primary complaint is pain control. Patient is only been taking Tylenol for pain control. Patient will be provided additional medication for pain control patient was encouraged of close follow-up with Neurosurgery. <Godwin Peguero MD - Last Filed: 06/26/24 19:57> Differential Diagnosis Differential diagnosis: Likely lumbar radiculopathy, sciatica and strain of lumbar region <Godwin Peguero MD - Last Filed: 06/26/24 19:57> Imaging Data Radiologist's impression: Impressions Lumbar Spine CT 06/26/24 13:55 IMPRESSION: 1. Acute versus subacute burst fractures of L2 and L5. 2. Healing sacral insufficiency fractures. 3. Moderate lumbar spondylosis. <Godwin Peguero MD - Last Filed: 06/26/24 19:57> Critical Care Time Critical Care Time Critical Care Time: No <Abigail Constantino PA-C - Last Filed: 06/28/24 17:49> Discharge Plan Discharge Clinical Impression: Closed L2 vertebral fracture Qualifiers: Encounter type: initial encounter Fracture morphology: burst- stable Qualified Code(s): S32.021A - Stable burst fracture of second lumbar vertebra, initial encounter for closed fracture Closed L5 vertebral fracture Qualifiers: Encounter type: initial encounter Fracture morphology: burst- stable Qualified Code(s): S32.051A - Stable burst fracture of fifth lumbar vertebra, initial encounter for closed fracture <Abigail Constantino PA-C - Last Filed: 06/28/24 17:49> Patient Disposition: Home, Self-Care <Abigail Constantino PA-C - Last Filed: 06/28/24 17:49> Condition: Stable <Abigail Constantino PA-C - Last Filed: 06/28/24 17:49> Instructions: Antibiotic Form, Vertebral Compression Fracture (ED) <Abigail Constantino PA-C - Last Filed: 06/28/24 17:49> Additional Instructions: If Tylenol is not helping to control your pain then stop the Tylenol and replace with [place]. Flexeril as needed for muscle spasm. Have close follow-up with Neurosurgery. If you have any worsening symptoms then please call or return to the emergency department. <Abigail Constantino PA-C - Last Filed: 06/28/24 17:49> Patient Language: Chinese <Abigail Constantino PA-C - Last Filed: 06/28/24 17:49> Prescriptions: New cyclobenzaprine 10 mg tablet 10 mg PO BID PRN (Reason: muscle spasm) Qty: 14 0RF hydrocodone-acetaminophen 5-325 mg tablet 1 tablet PO Q12H PRN (Reason: pain) Qty: 14 0RF No Action amiodarone 200 mg tablet 200 mg PO DAILY clopidogrel 75 mg tablet 75 mg PO DAILY Caltrate 1 tab-cap PO DAILY Centrum Silver Women 1 tab-cap PO DAILY atorvastatin 80 mg PO HS Rx Instructions: 80mg ferrous sulfate 325 mg (65 mg iron) tablet,delayed release (DR/EC) 325 mg PO BID Qty: 90 1RF methylprednisolone [Medrol (Bairon)] 4 mg tablets,dose pack See Rx Instructions PO PER PKG DIR Qty: 21 0RF Rx Instructions: PO PER PKG DIR methocarbamol 750 mg tablet 750 mg PO TID PRN (Reason: muscle spasm) Qty: 30 0RF sennosides-docusate sodium [Senna with Docusate Sodium] 8.6-50 mg tablet 1 tab-cap PO HS Qty: 30 0RF spironolactone 25 mg Tablet 25 mg PO QAM 30 Days Qty: 30 0RF Entresto 24-26 mg Tablet 1 tablet PO Q12HR 30 Days Qty: 60 0RF escitalopram oxalate 10 mg tablet 10 mg PO DAILY Qty: 90 1RF Breztri Aerosphere 160-9-4.8 mcg/actuation HFA aerosol inhaler 2 inh inhalation BID Qty: 10.7 5RF zolpidem 5 mg tablet 5 mg PO QHS PRN (Reason: sleep) Qty: 30 2RF <Abigail Constantino PA-C - Last Filed: 06/28/24 17:49> Follow-up/Referrals: Brennan Billy MD [Physician] - Branden Doyle DO [Primary Care Provider] - <Abigail Constantino PA-C - Last Filed: 06/28/24 17:49>
[2024-06-26 15:09] VITALS: BP 134/76; PULSE 59; RESP 17; O2SAT 96
[2024-06-26] MEDS: HYDROcodone/acetaminophen (*CRX) 5-325 MG TABLET 1 TAB PO (16:58)
[2024-06-26] MEDS: CYCLOBENZAPRINE HCL 10 MG TABLET PO (16:58)
== END 2024-06-26 17:08 | disposition home or self-care (01) ==
PROVIDERS: Emergency Provider Emergency Medicine; PCP Internal Medicine
DX: S32.021A Stable burst fracture of second lumbar vertebra, initial encounter for closed fracture (principal); S32.051A Stable burst fracture of fifth lumbar vertebra, initial encounter for closed fracture; M47.816 Spondylosis without myelopathy or radiculopathy, lumbar region; F17.210 Nicotine dependence, cigarettes, uncomplicated; I11.0 Hypertensive heart disease with heart failure; I50.9 Heart failure, unspecified; E78.5 Hyperlipidemia, unspecified; Z79.01 Long term (current) use of anticoagulants; J44.9 Chronic obstructive pulmonary disease, unspecified; I25.10 Atherosclerotic heart disease of native coronary artery without angina pectoris; I48.91 Unspecified atrial fibrillation; F41.9 Anxiety disorder, unspecified; X58.XXXA Exposure to other specified factors, initial encounter
CPT/HCPCS: 72131; 99284; A9270

== ENCOUNTER 2024-08-30 18:52 | Emergency (ER) | payer MEDICARE, SELFPAY ==
--- NOTE | ~2024-08-30 | CT_ITS ---
CT lumbar spine wo con Ordering provider: Darien Moore MD History: 68 years Female with . compression fracture . Comparison: June 26, 2024 Technique: CT lumbar spine without contrast. Automated exposure control and iterative reconstruction technique were employed. The dose-length product was 432.42 mGy-cm. FINDINGS: VERTEBRAE: Compression fracture of L2, L3, L4 and L5 is noted with involvement of the inferior endpla te of L4 and the body of L3. Compression of L2 is most likely acute on top of chronic. Chronic loss o f volume of L5 is also noted. Retropulsed fragment at the level of L2 is noted. Severe osteopenia. DISC SPACES: Well maintained. Evaluation of the neural foramina and spinal canal are limited without intrathecal contrast. T12-L1: No stenosis. L1-L2: Moderate spinal canal stenosis secondary to retropulsed fragment.. L2-L3: No stenosis. L3-L4: No stenosis. Diffuse disc bulge. L4-L5: Moderate spinal canal stenosis secondary to broad based disc bulge, facet arthropathy, and li gamentum flavum hypertrophy. Bilateral narrowing of the foramina with root compression is seen. L5-S1: Diffuse disc bulge with bilateral narrowing of the foramina. PARASPINOUS SOFT TISSUES: Mild atheromatous disease of the abdominal aorta. Cardiomegaly. Small sliding hiatus hernia. IMPRESSION: Acute Compression fracture of L2 with retropulsed fragment and moderate spinal canal stenosis. Loss o f height of about 60% is noted. Acute Compression fracture of L3. Acute Compression fracture of L4 with involvement of the inferior endplate. Old compression fracture of L5. Moderate Spinal canal stenosis at the level of L4-L5 with bilateral narrowing of the foramina. Reviewed, dictated and finalized at location A. IMPRESSION: Acute Compression fracture of L2 with retropulsed fragment and moderate spinal canal stenosis. Loss of height of about 60% is noted. Acute Compression fracture of L3. Acute Compression fracture of L4 with involvement of the inferior endplate. Old compression fracture of L5. Moderate Spinal canal stenosis at the level of L4-L5 with bilateral narrowing o f the foramina.
--- NOTE | ~2024-08-30 | XR_ITS ---
XR chest 1V portable Ordering provider: Darien Moore MD History: 68 years Female with . check for presence of pacemeaker leads . Comparison: December 25, 2022 FINDINGS: MEDIASTINUM: The cardiac silhouette is slightly enlarged. Postoperative changes in the mediastinum. LUNGS: No infiltrates, effusions or pneumothorax. OTHER: No free air under the diaphragm. IMPRESSION: No acute cardiopulmonary pathology. Reviewed, dictated and finalized at location A.
[2024-08-30 18:59] VITALS: BP 139/73; PULSE 65; RESP 16; TEMP 36.7; O2SAT 98
--- OUTSIDE RECORDS SUMMARY | 2024-08-30 19:23 | XMS_ITS | Data Portability ---
Author Organization [place] [facility] [place], ADMIN Address [address] [place] [id number] Care Team Providers Care Charge Gang Weigher Name Role Phone FREDIS WEBB Primary Care Provider Assessment Encounter Date Assessment Date Assessment LastModified by Organization Details LastModified Time 05/28/2022 05/28/2022 66-year-old, wit h shortness of breath, low blood pressure, atrial fibrillation, was here for follow-up after hospital discharge, at this time, recommend discontinuation, Cardizem, lisinopril, because of hypotension. [facility] Not available 06/09/2022 22:13:47 07/21/2022 07/21/2022 66-year-old femnicole gallegos, with atrial fibrillation, mitral regurgitation, here for follow-up status post mitral valve repair, left atrial appendage ligation, bypass surgery, LOPZE to LAD, SVG [facility] RPDA. [facility] Not available 08/02/2022 21:22:08 08/13/2022 08/13/2022 Nasal packing removed, nasal endoscopy performed, unremarkable no active bleeding anywhere. epistaxis precautions and follow up in 6 weeks. The patient has no contraindications from our standpoint to continue her anti coagulation for her recent valvular procedure [email or web address] Not available 08/13/2022 15:50:04 Plan of Treatment Reminders Order Date Submit Date Provider Last Modified By Organization Details Last Modified Time Details Appointments None recorded. Lab None recorded. Referral None recorded. Procedures None recorded. Surgeries None recorded. Imaging None recorded. Medication Orders Lasix 40 mg tablet 2022 023 [facility], [address], [place], [address], 09:32:41 metoprolol succinate ER 25 mg tablet,exte nded release 24 hr 2022 023 [facility], [address], [place], [address], 3 09:32:41 amiodarone 200 mg tablet 2022 023 [facility], [address], [place], [address], 3 09:32:41 Plavix 75 mg tablet 2022 023 [facility], [address], [place], [address], 3 09:32:41 Patient TargetsNo targets recorded. Patient Instructions Encounter Date Encounter Id Patient Instructions Last Modified By Organization Details Last Modified Time 05/28/2022 [id number] Darrick Sigala, acting as scribe, for Dr. Stef Bray, to document his verbalization of the History of Present Illness and Assessment and Plan. Darrick Guerra 05/28/2022 4:32 p.m. I, Dr. Stef Bray, hereby attest that I personally reviewed the documentation in the History of Present Illness, Physical Exam, and Assessment and Plan and agree the documentation accurately represents these services and the decisions I made. I also reviewed the documented the Past, Family, and Social History and made changes and/or additions as needed. Dr. Stef Bray MD. pericks Not available 05/28/2022 17:32:19 07/21/2022 [id number] Darrick Sigala, acting as scribe, for Dr. Stef Bray, to document his verbalization of the History of Present Illness and Assessment and Plan. Darrick Guerra 07/21/2022 10:05 a.m. Jovon, Dr. Stef Bray, hereby attest that I personally reviewed the documentation in the History of Present Illness, Physical Exam, and Assessment and Plan and agree the documentation accurately represents these services and the decisions I made. I also reviewed the documented the Past, Family, and Social History and made changes and/or additions as needed. Dr. Stef Bray MD. pericks Not available 07/21/2022 11:05:44 08/13/2022 [id number] nosebleeds: care instructions [email or web address] Not available 08/13/2022 15:50:49 Reason for Referral None Reported. Problems Name Problem SNOMED Code Status Onset Date Resolution Date Notes Provider Name and Address Organization Details Recorded Time Hypertensive disorder 65358617 Active 2022 Milagros Haskins lp n null, [place] [facility] [place] 3 16:40:33 Hyperlipidemia 75429794 Active 2022 Milagros Haskins lp n null, [place] [facility] [place] 3 16:40:43 Atrial fibrillation 85595654 Active 2022 Milagros Haskins lp n null, [place] [facility] [place] 3 16:40:56 Gastroesophage al reflux disease 829381700 Active 2022 Milagros Haskins lp n null, [place] [facility] [place] 3 16:41:08 Problem Notes None recorded. Procedures Surgical History Date Name Laterality Status Provider Name and Address Organization Details Recorded Time 08/14/19 23 Nasal Endoscopy completed KEKE MORENO MD [address] [place], [address], [address] 08/13/2022 15:49:33 06/29/19 23 open heart surgery completed La Nena Olson LPN [place] - [address] 08/13/2022 14:29:25 Tubal Ligation completed Milagros Haskins lpn [facility] [place] 05/28/2022 16:43:44 Hysterectomy completed Milagros Haskins lpn [address] 05/28/2022 16:44:01 Hernia Repair completed Milagros Haskins lpn [place] [facility] [place] 05/28/2022 16:44:13 lumpectomy of right breast completed Milagros Haskins lpn [place] [facility] [place] 05/28/2022 16:44:34 Imaging Results None recorded. Procedure Notes None recorded. Medical Equipment None Reported. Allergies No known drug allergies Medications Name Sig Start Date Stop Date Status Note LastModified by Organization Details LastModified Time furosemide 40 mg tablet TAKE 1 TABLET EVERY DAY DIRECTED active Not Available Not Available No t Available atorvastati n 40 mg tablet Take 1 tablet every day by oral route for 90 days. 07/21 completed Not Available Not Available Not Available buspirone 5 mg tablet active Not Available Not Available No t Available atorvastati n 80 mg tablet Take 1 tablet every day by oral route. active Not Available Not Available No t Available lisinopril 20 mg-hydrochl orothiazide 12.5 mg tablet 05/28 completed Not Available Not Available Not Available amiodarone 200 mg tablet TAKE 1 TABLET EVERY DAY DIRECTED active Not Available Not Available No t Available metoprolol succinate ER 50 mg tablet,exte nded release 24 hr Take 1 tablet every day by oral route for 90 days. 07/21 completed Not Available Not Available Not Available ondansetron HCl 4 mg tablet 05/28 completed Not Available Not Available Not Available penicillin V potassium 500 mg tablet 05/28 completed Not Available Not Available Not Available metronidazo le 500 mg tablet 05/28 completed Not Available Not Available Not Available clopidogrel 75 mg tablet TAKE 1 TABLET EVERY DAY DIRECTED active Not Available Not Available No t Available aspirin 81 mg tablet,stella yed release TAKE 1 TABLET BY MOUTH ONCE DAILY 07/21 completed Not Available Not Available Not Available tramadol 50 mg tablet TAKE 1 TABLET BY MOUTH EVERY 6 HOURS NEEDED FOR PAIN active Not Available Not Available No t Available meloxicam 7.5 mg tablet 05/28 completed Not Available Not Available Not Available potassium chloride ER 20 mEq tablet,exte nded release(par t/cryst) active Not Available Not Available Not Available methocarbam ol 750 mg tablet active Not Available Not Available Not Available baclofen 10 mg tablet TAKE 1 TABLET BY MOUTH THREE TIMES DAILY active Not Available Not Available No t Available benzonatate 100 mg capsule 05/28 completed Not Available Not Available Not Available cephalexin 500 mg capsule active Not Available Not Available Not Available ibuprofen 400 mg tablet 05/28 completed Not Available Not Available Not Available metoprolol succinate ER 25 mg tablet,exte nded release 24 hr TAKE 1/2 TABLET EVERY DAY DIRECTED active Not Available Not Available No t Available lisinopril 10 mg-hydrochl orothiazide 12.5 mg tablet Take 1 tablet every day by oral route for 90 days. 05/28 completed Not Available Not Available Not Available levofloxaci n 500 mg tablet 05/28 completed Not Available Not Available Not Available methylpredn isolone 4 mg tablets in a dose pack active Not Available Not Available Not Available diltiazem 30 mg tablet Take 1 tablet 3 times a day by oral route as needed for 30 days. 05/28 completed Not Available Not Available Not Available diazepam 5 mg tablet active Not Available Not Available No t Available oxycodone 5 mg tablet Take 1 tablet every 4 hours by oral route as needed. active Not Available Not Available No t Available Eliquis 5 mg tablet Take 1 tablet twice a day by oral route as directed for 90 days. 2022 active Not Available Not Available Not Avai lable Breo Ellipta 100 mcg-25 mcg/dose powder for inhalation active Not Available Not Available N ot Available Vitals Date Recorded Heart rate Body height Oxygen saturation Oxygen saturation in Arterial blood by Pulse oximetry Heart rate Respiratory rate Body mass index (BMI) Body weight Systolic blood pressure Diastolic blood pressure Provider Name and Address Organization Details Last Updated DateTime 3 80 /min 154.94 cm 96 % 96 % 80 /min 16 /min 22.4 kg/m2 28252.7 7 g 110 mm[Hg] 64 mm[Hg] rom Traore [place] [facility] [place] 3 16:37:34 Date Recorded Body height Body mass index (BMI) Body weight Oxygen saturation Oxygen saturation in Arterial blood by Pulse oximetry Heart rate Systolic blood pressure Diastolic blood pressure Provider Name and Address Organization Details Last Updated DateTime 3 154.94 cm 22 kg/m2 54553.1 5 g 96 % 96 % 62 /min 120 mm[Hg] 78 mm[Hg] Marlene Preciado LPN [place] [facility] [place] 3 10:36:22 Date Recorded Body height Body mass index (BMI) Body weight Heart rate Systolic blood pressure Diastolic blood pressure Provider Name and Address Organization Details Last Updated DateTime 3 154.94 cm 21.1 kg/m2 58789.9 1 g 65 /min 129 mm[Hg] 83 mm[Hg] La Nena Olson, AP PROCESSOR [facility] [place] 14:17:25 Social History Question Answer Notes LastModified by Organizat ion Details LastModified Time Tobacco Smoking Status Current Every Day Smoker Milagros Haskins,pantograph watcher null, [facility] [place] 05/28/2022 16:45:44 What Is Your Level Of Alcohol Consumption? Moderate Information not available 05/28/2022 How Many Times Per Week Do You Consume Alcohol? 5-7 Times Per Week [email or web address] Information not available 05/28/2022 What Is Your Level Of Caffeine Consumption? Moderate [email or web address] Information not available 05/28/2022 How Much Tobacco Do You Smoke? 1 PPD [email or web address] Information not available 05/28/2022 How Many Years Have You Smoked Tobacco? 50 [email or web address] Information not available 05/28/2022 Sex: Unknown Functional Status None recorded. Mental Status None recorded. Family History Relationship Description Onset Age of this Age Resolved Age Notes LastModified by Organization Details LastModified Time Father Heart disease Not available 2022 16:42:41 Sister Heart disease [email or web address] Not available 2022 16:42:57 Medical History Condition Response USE OF BLOOD THINNERS Y HAVE YOU BEEN HOSPITALIZED OR SEEN IN [facility] IN THE PAST YEAR ? Y GERD Y HYPERTENSION Y Gynecological HistoryNo gynecological history recorded. Obstetrics History GPAL:G 0 P 0 0 0 0 Past Encounters Encounter ID Performer Location Encounter Start Date Encounter Closed Date Diagnosis/Indication Diagnosis SNOMED-CT Code Diagnosis ICD10 Code Diagnosis Note [id number] STEF BRAY MD [facility] a[facility] [address] [place] [address] 05/28/2022 16:01:32 05/28/2022 17:43:10 Atrial fibrillation 10991690 I48.91 stable Essential hypertension 75991788 I10 d/c diltiazem and lisinopril [id number] STEF BRAY MD PBPM_Card kay [facility] [address] [place], [place] [address] 07/21/2022 09:57:06 07/21/2022 11:18:19 Atrial fibrillation 25273871 I48.91 Stable. Left atrial appendage ligation. Discontinu e apixaban, in 6 weeks. Essential hypertension 93204457 I10 Stable. Coronary arteriosclerosis 59363945 I25.10 s/p CABG. Mitral carolynn ve regurgitation 89774093 I34.0 Status post mitral valve replacemen t [id number] KEKE MORENO MD [facility] [address] [place] [address] 08/13/2022 13:42:34 08/13/2022 16:08:40 Bleeding from nose 483116689 R04.0 Health Concerns Section Related Observation LastModified by Organization Detai ls LastModified Time None Recorded Concern Status LastModified by Organization Details LastModified Time None Recorded Advance Directives Directive None Recorded Payers Encounter Date Sequence Insurance Name Policy Number Policy Marie Covered Member ID Marie Member ID Guarantor Name 05/28/2022 1 [employer] - GOLD CHOICE (MEDICARE REPLACEMENT PFFS) Maci Garcia [id number] Maci Garcia 07/21/2022 1 [employer] - GOLD CHOICE (MEDICARE REPLACEMENT PFFS) Maci Garcia [id number] Maci Garcia 08/13/2022 1 [employer] - GOLD CHOICE (MEDICARE REPLACEMENT PFFS) Maci Deepa Garcia [id number] Maci Garcia Notes Date Note Type Note Provider Name and Address Organization Details Recorded Time 05/28/2022 text/html 66 y/o female presents today with a history of hypertension and chronic smoking. for a follow up after a hospital stay for atrial fibrillation. The patient arrives today with reports that she thinks that the medications prescribed aren't right for her. Mostly causing low BP. She presented to ER with 1 week complaint of upper respiratory symptoms with dry cough and shortness of breath, associated with body aches, runny nose in change in voice. In ED, she was found to have heart rate 120 to 130s, respiratory rate 20, BNP 459, high sensitivity troponin 126, influenza A/B and COVID-19 negative. Patient was in AFib with RVR for which she was started on Cardizem drip and therapeutic Lovenox. Cardiology was consulted. 2D echocardiogram was done which showed normal EF. Patient was started on metoprolol 12.5 mg p.o. b.i.d.. Cardiology added Cardizem 30 mg p.o. t.i.d.. Patient is currently off Cardizem drip with rate controlled AFib. Testing & procedures:- US Echo: Normal left ventricular systolic function. Normal left ventricular cavity size. Ejection fraction is visually estimated at 55 %. Normal right ventricular size. Normal right ventricular systolic function. There is moderate enlargement of left atrium. Normal appearance and function of the mitral valve with trace physiologic regurgitation. Moderate mitral valve regurgitation. The regurgitation jet is eccentrically directed which may underestimate the severity of mitral regurgitation. Normal appearance and function of the aortic valve hemodynamically significant aortic stenosis by doppler. Normal appearance and function of the tricuspid valve with trace physiologic regurgitation. Right ventricular systolic pressure is consistent with moderate pulmonary hypertension. Tricuspid valve appears moderately thickened. Normal pericardium with no significant pericardial effusion. STEF BRAY MD [address] [place], [address], [place] [facility] [place] 06/09/2022 22:14:38 07/21/2022 text/html 66-year-old ita gallegos, who is here for follow[facility]up [facility], diagnosed with a non-STEMI, she was referred, for bypass surgery, she underwent two-vessel bypass surgery, LOPEZ to LAD, SVG to RPDA, she has had severe mitral regurgitation, she underwent placement of an Martinez 27 mm valve. She reports improvement in her symptoms.She has a history of atrial fibrillation, she also underwent left atrial appendage ligation. She reports compliance with medical therapy. She has been still on Eliquis 5 mg p.o. twice daily.Testing & procedures:-06/17/2022 Cardiac cath: 1. Elevated left ventricular end-diastolic pressure with LVEDP of 22 mmHg. No aortic valve gradient on pullback. 2. Mid LAD with 75% eccentric stenosis. 3. TR band hemostasis. Right radial artery.1. Normal left ventricular end-diastolic pressure with LVDP of 12 mmHg. No aortic valve gradient on pullback. 2. Moderate nonobstructive coronary to disease 3. TR band for hemostasis to right radial artery-06/05/2022 US, Echo: Normal left ventricular wall thickness. Mild concentric left ventricular hypertrophy. Mild enlargement of left ventricle cavity. Normal left ventricular distolic function for age. Tissue Doppler/Mitral Doppler indices are indeterminate in this study due to the presence of. Not well visualized. Mild enlargement of right ventricle. Mild right ventricular hypokinesis. The left atrium is normal in size. There is moderate enlargement of left atrium. There is moderate enlargement of right atrium. Mitral valve is not well visualized. Mitral valve leaflets appear mildly thickened. Moderate to severe mitral valve regurgitation. The regurgitation jet is eccentrically directed which may underestimate the severity of mitral regurgitation. No mitral stenosis. Normal trileaflet aortic valve structure. No hemodynamically significant aortic stenosis by doppler. No aortic regurgitation. Tricuspid valve not well visualized. Estimated peak RVSP is 50 mmHg. There is moderate to severe tricuspid regurgitation. No significant change since 6 weeks ago.-04/24/2022 US Echo: Normal left ventricular systolic function. Normal left ventricular cavity size. Ejection fraction is visually estimated at 55 %. Normal right ventricular size. Normal right ventricular systolic function. There is moderate enlargement of left atrium. Normal appearance and function of the mitral valve with trace physiologic regurgitation. Moderate mitral valve regurgitation. The regurgitation jet is eccentrically directed which may underestimate the severity of mitral regurgitation. Normal appearance and function of the aortic valve hemodynamically significant aortic stenosis by doppler. Normal appearance and function of the tricuspid valve with trace physiologic regurgitation. Right ventricular systolic pressure is consistent with moderate pulmonary hypertension. Tricuspid valve appears moderately thickened. Normal pericardium with no significant pericardial effusion. STEF BRAY MD [address] [place] [address], [phone], [facility] [place] 08/02/2022 21:23:11 08/13/2022 text/html the patient is a new patient for the clinic but is seen in follow-up after we saw her in the hospital with epistaxis. She presents with nose packing, sustained a nasal bone fracture and she is on Eliquis for recent cardiac valve procedure. KEKE MORENO MD [address] [place] [address], [phone], [facility] [place] 08/13/2022 15:50:52 OBGyn Episode No OBEpisode recorded.
--- NOTE | 2024-08-30 19:30 | PC.NURSE ---
Assumed care of pt after receiving bedside report from SHANE Soto. @ [phone]
[2024-08-30] MEDS: HYDROcodone/acetaminophen (*CRX) 5-325 MG TABLET 1 TAB PO ×2 (19:50→22:38)
--- NOTE | 2024-08-30 20:16 | ED_ITS ---
HPI - Back Pain/Injury General Chief Complaint: Back Pain/Injury Stated Complaint: back pain Time Seen by Provider: 08/30/24 19:08 History of Present Illness HPI Narrative: Patient is a 5-year-old female who presents the emergency department this evening complaining of chronic lower back pain. Patient states that she was seen here early June and was diagnosed with a compression fracture. Since then, patient states that she has been in excruciating pain. She has followed up with neurosurgery who wanted obtain an MRI as they believe that she is a candidate for some form of cementing surgery, however, she has not been able to get the MRI as she was told she still has some remnants of her pacemaker still in her chest which she believed was removed. She was told that the leads of the pacemaker were not removed and she was scheduled for a chest x-ray tomorrow for further evaluation. Patient states that she lives at home alone and has been doing her best to get around and states that she has a bed lift but lately it has been very hard for her to perform any of her activities of daily living. Denies any recent falls or trauma since she was last seen here. Denies any bowel or bladder incontinence. No additional symptoms or concerns at this time. Related Data Home Medications ?Medication ?Instructions ?Recorded ?Confirmed ?Last Taken ?Type Caltrate 1 tab-cap PO DAILY 09/19/22 07/24/24 12/24/22 09:00 History Centrum Silver Women 1 tab-cap PO DAILY 09/19/22 07/24/24 12/24/22 09:00 History amiodarone 200 mg tablet 200 mg PO DAILY 09/19/22 07/24/24 12/24/22 09:00 History clopidogrel 75 mg tablet 75 mg PO DAILY 09/19/22 07/24/24 12/24/22 09:00 History atorvastatin 80 mg PO HS 10/14/22 07/24/24 12/24/22 09:00 History Allergies Allergy/AdvReac Type Severity Reaction Status Date / Time MICHAELLE Inhibitors Allergy Unknown Unknown Verified 07/24/24 14:03 Review of Systems Review of Systems: All systems are reviewed and are negative unless stated otherwise in the HPI. [facility] Past Medical History Medical History BMI 25.0-25.9,adult Hyperlipidemia BMI 26.0-26.9,adult CHF (congestive heart failure) Erosive gastritis Chronic anticoagulation Tobacco dependence Chronic obstructive pulmonary disease Coronary artery disease Paroxysmal atrial fibrillation Hypertension Anxiety Surgical History Surgical History History of mitral valve replacement with bioprosthetic valve History of coronary artery bypass graft x 2 History of tonsillectomy History of stress incontinence procedure using tension free vaginal tape (2002) History of cardiac catheterization History of incisional hernia repair (09/2011) History of tubal ligation History of total abdominal hysterectomy and bilateral salpingo-oophorectomy (2002) Family History Family History Father Family history of heart disease in male family member before age 55 Family history of coronary artery disease Sibling Hypertension Mother Other Cerebrovascular accident Social History Social History Social History: Surrogate medical decision maker: Codi Calle, eleanor. Code status: Full code. Smoking packs per day: 1 Smoking cigarettes per day: 20.0 Smoking status: Current every day smoker Tobacco type: cigarettes Second hand tobacco smoke exposure: Yes Additional smoking assessment comments: Has smoked up to 2 packs a day. 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 HEENT: PERRL, no rhinorrhea, no post nasal drip, oropharynx clear. Neck: Trachea midline, no JVD, no lymphadenopathy. Cardiovascular: Regular rate and rhythm, no murmurs, rubs or gallops, no peripheral edema. Respiratory: Clear to auscultation bilaterally, no tachypnea, no wheezing, no rhonchi, no rubs, no respiratory distress. Abdomen: Soft, nontender, nondistended, no rebound, no guarding, no peritoneal signs. Musculoskeletal: No joint swelling or deformity, normal muscle tone. Back: Tenderness to palpation over the paraspinal lumbar region, no step-offs or deformities. Skin: No rashes or petechia, no signs of infection. Psychiatric: Alert and oriented, normal behavior and judgment for situation. Neurological: Alert and oriented to person, place, and time. Follows all commands. No focal deficits, speech is clear and fluent. Course Vital Signs Vital signs: Vital Signs Temperature 98.0 F 08/30/24 18:59 Pulse Rate 65 08/30/24 18:59 Respiratory Rate 16 08/30/24 18:59 Blood Pressure 139/73 08/30/24 18:59 Pulse Oximetry 98 08/30/24 18:59 Oxygen Delivery Room Air 08/30/24 18:59 Temperature 98.0 F 08/30/24 18:59 Pulse Rate 65 08/30/24 18:59 Respiratory Rate 16 08/30/24 18:59 Blood Pressure 139/73 08/30/24 18:59 Pulse Oximetry 98 08/30/24 18:59 Oxygen Delivery Room Air 08/30/24 18:59 MDM - Back Pain/Injury MDM Narrative Medical decision making narrative: The patient was evaluated by myself in the emergency department. History is obtained from patient who is an independent historian and physical exam was performed. External medical records were reviewed at this time. Patient was administered an oral [place] 5-325 mg for pain. Imaging studies obtained included CXR which was independently interpreted by me revealing no acute cardiopulmonary pathology. CT lumbar spine without IV c ontrast was also obtained at this time and feeling interpreted by me revealing: IMPRESSION: Acute Compression fracture of L2 with retropulsed fragment and moderate spinal canal stenosis. Loss of height of about 60% is noted. Acute Compression fracture of L3. Acute Compression fracture of L4 with involvement of the inferior endplate. Old compression fracture of L5. Patient was informed of these findings at bedside, patient believes that the L2 fracture is an old fracture as she recalls that she was told she has a compression fracture of her all to an L5. Patient already has an LSO brace at home that she wears but did not bring it with her to the emergency department today. Moderate Spinal canal stenosis at the level of L4-L5 with bilateral narrowing of the foramina. Differential diagnosis considerations include compression fracture, herniated disc, lumbosacral strain. Comorbidities impacting this visit include history of compression fracture in the lumbar spine. I have evaluated and discussed social determinants of health with the patient that could potentially impact subsequent diagnosis and treatment plans. On repeat assessment of the patient, reevaluation revealed that the patient is doing well and is in no acute distress. Patient symptoms have improved since she arrived to our emergency department. Patient states that the Green Valley initially helped her pain but the pain is back now on she was offered IV pain medication, however, she declined stating that she just wants another [place]. Patient was offered hospital admission for pain control versus outpatient follow-up and patient prefers to follow-up with her neurosurgeon as an outpatient. Repeat vital signs were all reviewed and noted to be stable. Differential diagnosis and treatment plan were discussed with the patient at bedside. Patient agrees with discussion and after shared medical decision making agrees with discharge. All questions were answered to the patient's satisfaction. Patient will follow up with her neurosurgeon in 3-5 days. Instructed to continue to wear the LSO brace that she has at home as she has already been doing. Patient was provided with strict return precautions and instructed to return to the emergency department if any new or worsening symptoms develop. The patient was discharged in stable condition. Discharge Plan Discharge Clinical Impression: Closed compression fracture of lumbar vertebra Patient Disposition: Home Condition: Improved Instructions: Antibiotic Form, Thoracolumbar Fracture (ED) Additional Instructions: Please follow-up with your neurosurgeon for your acute and chronic lumbar compression fractures and moderate spinal stenosis within the next 3-5 days. He will need to obtain an MRI for further evaluation. Your instructed to continue wearing your LSO brace. Return to the emergency department if any new or worsening symptoms develop. Patient Language: Ukrainian Prescriptions: No Action amiodarone 200 mg tablet 200 mg PO DAILY clopidogrel 75 mg tablet 75 mg PO DAILY Caltrate 1 tab-cap PO DAILY Centrum Silver Women 1 tab-cap PO DAILY atorvastatin 80 mg PO HS Rx Instructions: 80mg ferrous sulfate 325 mg (65 mg iron) tablet,delayed release (DR/EC) 325 mg PO BID Qty: 90 1RF sennosides-docusate sodium [Senna with Docusate Sodium] 8.6-50 mg tablet 1 tab-cap PO HS Qty: 30 0RF spironolactone 25 mg Tablet 25 mg PO QAM 30 Days Qty: 30 0RF Entresto 24-26 mg Tablet 1 tablet PO Q12HR 30 Days Qty: 60 0RF Breztri Aerosphere 160-9-4.8 mcg/actuation HFA aerosol inhaler 2 inh inhalation BID Qty: 10.7 5RF zolpidem 5 mg tablet 5 mg PO QHS PRN (Reason: sleep) Qty: 30 2RF diazepam 5 mg tablet 5 mg PO TID PRN (Reason: sedation) Qty: 3 0RF Rx Instructions: Take 1 tablet 1 hour before MRI, 1 tablet 30 minutes before, and 1 at time of test if needed escitalopram oxalate 10 mg tablet 10 mg PO DAILY Qty: 90 2RF methocarbamol 750 mg tablet 750 mg PO TID PRN (Reason: muscle spasm) Qty: 30 0RF hydrocodone-acetaminophen 10-325 mg tablet 1 tablet PO Q6H PRN (Reason: pain) Qty: 40 0RF Follow-up/Referrals: Yury Ramirez APRN [Primary Care Provider] - Linda Ambriz APRN [Advanced Practice Nurse] - 3 Days Time of Disposition: 22:07
[2024-08-30 22:50] VITALS: BP 136/78; PULSE 62; RESP 18; O2SAT 98
== END 2024-08-31 00:25 | disposition home or self-care (01) ==
PROVIDERS: Emergency Provider Emergency Medicine; PCP Nurse Practitioner
DX: M48.56XA Collapsed vertebra, not elsewhere classified, lumbar region, initial encounter for fracture (principal); I50.9 Heart failure, unspecified; I11.0 Hypertensive heart disease with heart failure; I48.0 Paroxysmal atrial fibrillation; I25.10 Atherosclerotic heart disease of native coronary artery without angina pectoris; J44.9 Chronic obstructive pulmonary disease, unspecified; E78.5 Hyperlipidemia, unspecified; F41.9 Anxiety disorder, unspecified; F17.210 Nicotine dependence, cigarettes, uncomplicated; Z95.2 Presence of prosthetic heart valve; Z95.1 Presence of aortocoronary bypass graft; Z90.710 Acquired absence of both cervix and uterus; Z90.79 Acquired absence of other genital organ(s); Z90.722 Acquired absence of ovaries, bilateral; Z79.02 Long term (current) use of antithrombotics/antiplatelets; Z79.899 Other long term (current) drug therapy; M51.369 Other intervertebral disc degeneration, lumbar region without mention of lumbar back pain or lower extremity pain; M48.061 Spinal stenosis, lumbar region without neurogenic claudication
CPT/HCPCS: 71045; 72131; 99283; 99284; A9270

== ENCOUNTER 2024-09-19 11:44 | Outpatient (CLI) | payer MEDICARE, SELFPAY ==
--- NOTE | ~2024-09-19 | NM_ITS ---
EXAMINATION: NM bone scan whole body DATE: 09/19/2024 14:41 INDICATION: Osteoporosis TECHNIQUE: 24.7 mCi Tc-99m HDP was administered intravenously. Delayed whole-body scintigrams were o btained. COMPARISON: Lumbar spine CT dated 08/30/2024 FINDINGS: There is increased uptake associated with L1-L5 compression fractures. Additional increased uptake at a midthoracic vertebral body fracture in the region of T8. Mild likely degenerative joint centered u ptake at the bilateral acromioclavicular joints and at the right wrist. Subtle asymmetric increased u ptake at the left sacral ala corresponding to an additional fracture of the prior CT. No other suspic ious foci of abnormal bone uptake to suggest metastatic disease. IMPRESSION: 1. Increased uptake associated with multiple lumbar compression and burst fractures as seen on prior CT additional uptake in the midthoracic vertebral body likely related to an additional compression or burst fracture. 2. Minimal asymmetric increased uptake at the left sacral ala relative to the right corresponding to an additional nondisplaced likely sacral insufficiency fracture. Reviewed, dictated and finalized at location A. IMPRESSION: 1. Increased uptake associated with multiple lumbar compression and burst fract ures as seen on prior CT additional uptake in the midthoracic vertebral body li janeth related to an additional compression or burst fracture. 2. Minimal asymmetric increased uptake at the left sacral ala relative to the r ight corresponding to an additional nondisplaced likely sacral insufficiency fr acture.
--- OUTSIDE RECORDS SUMMARY | 2024-09-19 12:20 | XMS_ITS | Data Portability ---
Author Organization [place] - [facility] [place], ADMIN Address [address] [place] [id number] Care Team Providers Care Director Of Integrated Marketing Name Role Phone FREDIS WEBB Primary Care Provider Assessment Encounter Date Assessment Date Assessment LastModified by Organization Details LastModified Time 05/28/2022 05/28/2022 66-year-old, wit h shortness of breath, low blood pressure, atrial fibrillation, was here for follow-up after hospital discharge, at this time, recommend discontinuation, Cardizem, lisinopril, because of hypotension. [facility] Not available 06/09/2022 22:13:47 07/21/2022 07/21/2022 66-year-old femnicole gallegos, with atrial fibrillation, mitral regurgitation, here for follow-up status post mitral valve repair, left atrial appendage ligation, bypass surgery, LOPEZ to LAD, [email or web address] 08/02/2022 21:22:08 08/13/2022 08/13/2022 [...] Orders Lasix 40 mg tablet 2022 023 [facility], [address], [place], [address], 09:32:41 metoprolol succinate ER 25 mg tablet,exte nded release 24 hr 2022 023 [facility], [address], [place], [address], 3 09:32:41 amiodarone 200 mg tablet 2022 023 [facility], [address], [place], [address], 3 09:32:41 Plavix 75 mg tablet 2022 023 [facility], [address], [place], [address], 3 09:32:41 Patient TargetsNo targets recorded. Patient Instructions Encounter Date Encounter Id Patient Instructions Last Modified By Organization Details Last Modified Time 05/28/2022 [id number] Darrick Sigala, acting as scribe, for Dr. [...] MD. pericks Not available 05/28/2022 17:32:19 07/21/2022 [id number] Darrick Sigala, acting as scribe, for Dr. [...] MD. pericks Not available 07/21/2022 11:05:44 08/13/2022 [id number] nosebleeds: care instructions [email or web address] Not available 08/13/2022 15:50:49 Reason for Referral None Reported. Problems Name Problem SNOMED Code Status Onset Date Resolution Date Notes Provider Name and Address Organization Details Recorded Time Hypertensive disorder 31056219 Active 2022 Milagros Haskins lp n null, [place] [facility] [place] 3 16:40:33 Hyperlipidemia 38563057 Active 2022 Milagros Haskins lp n null, [place] [facility] [place] 3 16:40:43 Atrial fibrillation 07087272 Active 2022 Milagros Haskins lp n null, [place] - [facility] [place] 3 16:40:56 Gastroesophage al reflux disease 194167014 Active 2022 Milagros Haskins lp n null, [place] [facility] [place] 3 16:41:08 Problem Notes None recorded. Procedures Surgical History Date Name Laterality Status Provider Name and Address Organization Details Recorded Time 08/14/19 23 Nasal Endoscopy completed KEKE MORENO MD [address] [place], [address], [address] 08/13/2022 15:49:33 06/29/19 23 open heart surgery completed La Nena Olson LPN [place] - [address] 08/13/2022 14:29:25 Tubal Ligation completed Milagros Haskins lpn [facility] [place] 05/28/2022 16:43:44 Hysterectomy completed Milagros Haskins lpn [address] 05/28/2022 16:44:01 Hernia Repair completed Milagros Haskins lpn [place] [facility] [place] 05/28/2022 16:44:13 lumpectomy of right breast completed Milagros Haskins lpn [place] [facility] [place] 05/28/2022 16:44:34 Imaging Results None recorded. Procedure [...] % 80 /min 16 /min 22.4 kg/m2 34342.7 7 g 110 mm[Hg] 64 mm[Hg] rom Traore [place] - [facility] [place] 3 16:37:34 Date Recorded Body height Body mass index (BMI) Body weight Oxygen saturation Oxygen saturation in Arterial blood by Pulse oximetry Heart rate Systolic blood pressure Diastolic blood pressure Provider Name and Address Organization Details Last Updated DateTime 3 154.94 cm 22 kg/m2 59895.1 5 g 96 % 96 % 62 /min 120 mm[Hg] 78 mm[Hg] Marlene Preciado LPN [place] [facility] [place] 3 10:36:22 Date Recorded Body height Body mass index (BMI) Body weight Heart rate Systolic blood pressure Diastolic blood pressure Provider Name and Address Organization Details Last Updated DateTime 3 154.94 cm 21.1 kg/m2 16968.9 1 g 65 /min 129 mm[Hg] 83 mm[Hg] La Nena Olson, DIRECTORY CARRIER [facility] [place] 14:17:25 Social History Question Answer Notes LastModified by Organizat ion Details LastModified Time Tobacco Smoking Status Current Every Day Smoker Milagros Haskins,mold stripper null, [facility] [place] 05/28/2022 16:45:44 What Is Your Level Of Alcohol Consumption? Moderate [email or web address] Information not available 05/28/2022 How Many Times Per Week Do You Consume Alcohol? 5-7 Times Per Week [email or web address] Information not available 05/28/2022 What Is Your Level Of Caffeine Consumption? Moderate [email or web address] Information not available 05/28/2022 How Much Tobacco Do You Smoke? 1 PPD [email or web address] Information not available 05/28/2022 How Many Years Have You Smoked Tobacco? 50 [email or web address] Information not available 05/28/2022 Sex: Unknown Functional Status None recorded. Mental Status None recorded. Family History Relationship Description Onset Age of this Age Resolved Age Notes LastModified by Organization Details LastModified Time Father Heart disease [email or web address] Not available 2022 16:42:41 Sister Heart disease [email or web address] Not available 2022 16:42:57 Medical History Condition Response USE OF BLOOD THINNERS Y HAVE YOU BEEN HOSPITALIZED OR SEEN IN [facility] IN THE PAST YEAR ? Y GERD Y HYPERTENSION Y Gynecological HistoryNo gynecological history recorded. Obstetrics History GPAL:G 0 P 0 0 0 0 Past Encounters Encounter ID Performer Location Encounter Start Date Encounter Closed Date Diagnosis/Indication Diagnosis SNOMED-CT Code Diagnosis ICD10 Code Diagnosis Note [id number] STEF BRAY MD PBPM_Card kay [facility] [address] [place] [address] 05/28/2022 16:01:32 05/28/2022 17:43:10 Atrial fibrillation 68365743 I48.91 stable Essential hypertension 20368233 I10 d/c diltiazem and lisinopril [id number] STEF BARY MD PBPM_Card kay [facility] [address] [place], [place] [address] 07/21/2022 09:57:06 07/21/2022 11:18:19 Atrial fibrillation 07086293 I48.91 Stable. Left atrial appendage ligation. Discontinu e apixaban, in 6 weeks. Essential hypertension 60475549 I10 Stable. Coronary arteriosclerosis 91377467 I25.10 s/p CABG. Mitral carolynn ve regurgitation 38121472 I34.0 Status post mitral valve replacemen t [id number] KEKE MORENO MD [facility] [address] [place] [address] 08/13/2022 13:42:34 08/13/2022 16:08:40 Bleeding from nose 147488505 R04.0 Health Concerns Section Related Observation LastModified by Organization Detai ls LastModified Time None Recorded Concern Status LastModified by Organization Details LastModified Time None Recorded Advance Directives Directive None Recorded Payers Encounter Date Sequence Insurance Name Policy Number Policy Marie Covered Member ID Marie Member ID Guarantor Name 05/28/2022 1 [employer] - GOLD CHOICE (MEDICARE REPLACEMENT PFFS) Maci Garcia [id number] Maci Garcia 07/21/2022 1 [employer] - GOLD CHOICE (MEDICARE REPLACEMENT PFFS) Maci Garcia [id number] Maci Garcia 08/13/2022 1 [employer] - GOLD CHOICE (MEDICARE REPLACEMENT PFFS) Maci Deepa Garica [id number] Maci Garcia Notes Date Note Type Note [...] significant pericardial effusion. STEF BRAY MD [address] [place], [address], [place] - [facility] [place] 06/09/2022 22:14:38 07/21/2022 text/html 66-year-old ita gallegos, who is here for follow-up [facility], [facility] [...] no significant pericardial effusion. STEF BRAY MD [address] [place] [address], [phone], [facility] - [facility] [place] 08/02/2022 21:23:11 08/13/2022 text/html the patient is a new patient for the clinic but is seen in follow-up after we saw her in the hospital with epistaxis. She presents with nose packing, sustained a nasal bone fracture and she is on Eliquis for recent cardiac valve procedure. KEKE MORENO MD [address] [place] [address], [phone], [facility] - [facility] [place] 08/13/2022 15:50:52 OBGyn Episode No OBEpisode recorded.
== END 2024-09-19 11:45 | disposition home or self-care (01) ==
PROVIDERS: PCP Nurse Practitioner; Visit Provider Pain Medicine Pain Medicine
DX: M80.08XA Age-related osteoporosis with current pathological fracture, vertebra(e), initial encounter for fracture (principal)
CPT/HCPCS: 78306; A9503

== ENCOUNTER 2024-12-29 12:43 | Outpatient (CLI) | payer MEDICARE, SELFPAY ==
--- NOTE | ~2024-12-29 | DEXA_ITS ---
Bone Density Report Name: JUSTUS LANG Age: 69 Sex: Female Ethnicity: White Date of : 1955 Indication: postmenopausal; screening for osteoporosis; height loss; prior fracture; hysterectomy; Referring Provider: MARCOS STEIN Study: Bone densitometry was performed. Exam Date: December 29, 2024 Accession number: [id number] Bone Density: Region BMD T-score Z-score Classification AP Spine(L1, L2) 0.774 -1.9 0.2 Osteopenia Femoral Neck (Left) 0.391 -4.1 -2.3 Osteoporosis Total Hip (Left) 0.479 -3.8 -2.2 Osteoporosis Femoral Neck (Right) 0.346 -4.5 -2.7 Osteoporosis Total Hip (Right) 0.443 -4.1 -2.5 Osteoporosis Total Hip Mean 0.461 -4.0 -2.4 Osteoporosis World Health Organization criteria for BMD impression classify patients as: Normal (T-score at or above -1.0), Osteopenia (T-score between -1.0 and -2.5), or Osteoporosis (T-score at or below -2.5). 10-year Fracture Risk: FRAX not reported because: Some T-score for Spine Total or Hip Total or Femoral Neck at or below -2.5 Prior hip or vertebral fracture Clinical Information Provided by Patient: Have had a previous hip or vertebral fracture Has had a low trauma fracture Smokes Has used the following medications: Calcium Has the following medical conditions: Hysterectomy Patient maximum height was 61 No regular weight bearing exercise Does not regularly consume dairy products Drinks caffeinated beverages Onset of menses at age 12 Number of children 2 Impression: The patient has established osteoporosis, based on the Right Femoral Neck T-score and the existence of a prior fracture. The patient has risk factors, including: smoking, previous fracture. Discussion: HIGH RISK OF FRACTURE. BONE DENSITY IS UNDESIRABLY LOW AT ONE OR MORE SKELETAL SITES, CONSISTENT WITH POSTMENOPAUSAL OSTEOPOROSIS. This patient's lowest T-score, in a patient who has previously fractured, meets the World Health Organization's (WHO) criteria for severe osteoporosis. In untreated patients, the risk of osteoporotic fracture increases approximately two-fold for each 1.0 SD decrease in T-score. Low bone density is not the only risk factor for fracture; also consider factors such as patient's age, frailty or poor health, risk of falling, risk of injury, previous osteoporotic fracture, family history of osteoporosis, cigarette smoking, low body weight, etc. Not everyone with low bone mineral density has osteoporosis; osteomalacia and other metabolic bone disorders should also be considered. Patients who have osteoporosis should be evaluated for specific diseases and conditions (secondary causes) that may cause or contribute to bone loss. The [place] [employer] Endocrinologists (AACE) and National Osteoporosis Foundation (NOF) recommend pharmacologic intervention for all postmenopausal women with a previous hip or vertebral fracture and a T-score in this range. The patient should follow a healthful lifestyle (good nutrition with adequate calcium and vitamin D, and appropriate weight-bearing exercise). Follow-Up: Consider a repeat BMD and Vertebral Fracture Assessment (VFA) exam in 2 years or sooner if medically necessary, to reassess this patient's status. Reported by: JEFFERSON on 12/29/2024 1:28:00 PM. Reviewed, dictated and finalized at location A.
== END 2024-12-29 12:44 | disposition home or self-care (01) ==
LOC: ANHIMG 12:47
PROVIDERS: PCP Nurse Practitioner; Visit Provider Nurse Practitioner Adult Health
DX: Z78.0 Asymptomatic menopausal state (principal); S32.029A Unspecified fracture of second lumbar vertebra, initial encounter for closed fracture; M85.88 Other specified disorders of bone density and structure, other site; M81.0 Age-related osteoporosis without current pathological fracture; X58.XXXA Exposure to other specified factors, initial encounter
CPT/HCPCS: 77080

== ENCOUNTER 2024-12-29 13:33 | Outpatient (CLI) | payer MEDICARE, SELFPAY ==
--- NOTE | ~2024-12-29 | XR_ITS ---
EXAM: XR wrist RT min 3V DATE: 12/29/2024 13:58 HISTORY: Pain in right wrist, NKI, PRIOR FX X 50 YRS AGO . COMPARISON: None available. FINDINGS: Decreased mineralization. No fracture or dislocation. No lytic or blastic lesion. Lunate s clerosis. Arthritic changes in the wrist, most severe at the radiocarpal interval. Scapholunate widen ing. Ulnar positive variance. Old distal radial fracture, healed in mild deformity. Old ulnar styloid fracture. Vascular calcifications. No erosion or periosteal change. IMPRESSION: Osteopenia. Radiographic findings suggestive of SLAC wrist. Possible lunate AVN. Reviewed, dictated and finalized at location K. IMPRESSION: Osteopenia. Radiographic findings suggestive of SLAC wrist. Possibl e lunate AVN.
--- NOTE | ~2024-12-29 | XR_ITS ---
XR chest 2V 12/29/2024 13:58 Indication: Tobacco use Procedure: 2 view chest Comparison: 08/30/2024 Findings: Heart size normal. There is an atrial closure device. There are residual epicardial pacing leads. There is a prosthetic heart valve. Status post median sternotomy for CABG. Left basilar atelec tasis. Right lung clear. There are upper lumbar compression fractures, age indeterminate. Impression: 1: Left basilar atelectasis. Reviewed, dictated and finalized at location A. Impression: 1: Left basilar atelectasis.
== END 2024-12-29 13:34 | disposition home or self-care (01) ==
PROVIDERS: PCP Nurse Practitioner; Visit Provider Nurse Practitioner
DX: M85.831 Other specified disorders of bone density and structure, right forearm (principal); Z72.0 Tobacco use; J98.11 Atelectasis; M85.88 Other specified disorders of bone density and structure, other site; M81.0 Age-related osteoporosis without current pathological fracture
CPT/HCPCS: 71046; 73110

== ENCOUNTER 2025-05-13 11:33 | Emergency (ER) | payer MEDICARE, SELFPAY ==
--- NOTE | ~2025-05-13 | XR_ITS ---
Examination: XR knee RT min 4V, XR foot RT min 3V Clinical History: fall, pain with bearing weight Comparison: None Technique: 4 views right knee, 4 views right foot Findings/impression: Right knee: 1. No fracture, dislocation, or effusion. 2. Osteopenia. 3. Peripheral arterial disease. Right foot: 1. No fracture or dislocation. 2. Severe degenerative changes first toe MTP joint. Reviewed, dictated and finalized at location R. TH EDUCATION DIRECTOR
[2025-05-13 11:44] VITALS: BP 188/79; PULSE 64; RESP 16; TEMP 36.2; O2SAT 98
--- NOTE | 2025-05-13 13:00 | ED_ITS ---
HPI - Extremity Injury (Lower) General Chief Complaint: Extremity Injury, Lower Stated Complaint: fall Time Seen by Provider: 05/13/25 11:35 Source: patient Mode of arrival: ambulatory Limitations: no limitations History of Present Illness HPI Narrative: patient is a 69-year-old female presents with right leg pain after fall. Reports medial right knee pain radiates down leg to ankle and top of foot. there are no open wounds, swelling or bruising. Patient can ambulate with walker but has pain. Patient reports she got dizzy last night and fell before she was able to reach her chair. Denies hitting her head, neck or back and did not have any LOC. Patient has history of vertigo and takes medication as needed. Related Data Home Medications ?Medication ?Instructions ?Recorded ?Confirmed ?Last Taken ?Type Caltrate 1 tab-cap PO DAILY 09/19/22 04/06/25 12/24/22 09:00 History Centrum Silver Women 1 tab-cap PO DAILY 09/19/22 04/06/25 12/24/22 09:00 History amiodarone 200 mg tablet 200 mg PO DAILY 09/19/2212/24/22 09:00 History clopidogrel 75 mg tablet 75 mg PO DAILY 09/19/2203/1812/24/22 09:00 History atorvastatin 80 mg PO HS 10/14/22 5 12/24/22 09:00 History Allergies Allergy/AdvReac Type Severity Reaction Status Date / Time JOSUE Inhibitors AdvReac Mild Cough Verified 05/13/25 12:27 Review of Systems Review of Systems: All systems reviewed & are unremarkable except as noted in HPI and below Constitutional: Constitutional: Denies body ache(s), Denies chills, Denies fatigue, Denies fever(s), Denies headache(s), Denies malaise and Denies weakness Eyes: Eyes: Denies blurry vision, Denies irritation and Denies loss of vision ENT: Denies otalgia, Denies headache(s), Denies nasal discharge, Denies sinus pain and Denies sore throat Cardiovascular: Cardiovascular: Denies chest pain, Denies irregular heart rhythm and Denies dyspnea Respiratory: Respiratory: Denies dyspnea Gastrointestinal: Gastrointestinal: Denies abdominal pain, Denies melena, Denies hematochezia, Denies diarrhea, Denies nausea and Denies vomiting Musculoskeletal: Musculoskeletal: Denies back pain, Denies myalgias, Reports arthralgias and Reports joint swelling Integumentary/Breasts: Skin/Breast: Denies pruritus and Denies rash Neurologic: Denies headache(s), Denies loss of vision and Denies weakness Psychiatric: Psychiatric: Reports no additional psychiatric complaints Endocrine: Endocrine: Denies fatigue [facility] Past Medical History Medical History BMI 25.0-25.9,adult Hyperlipidemia BMI 26.0-26.9,adult CHF (congestive heart failure) Erosive gastritis Chronic anticoagulation Tobacco dependence Chronic obstructive pulmonary disease Coronary artery disease Paroxysmal atrial fibrillation Hypertension Anxiety Surgical History Surgical History History of left atrial appendage closure History of mitral valve replacement with bioprosthetic valve History of coronary artery bypass graft x 2 History of tonsillectomy History of stress incontinence procedure using tension free vaginal tape (2002) History of cardiac catheterization History of incisional hernia repair (09/2011) History of tubal ligation History of total abdominal hysterectomy and bilateral salpingo-oophorectomy (2002) Family History Family History Father Family history of heart disease in male family member before age 55 Family history of coronary artery disease Sibling Hypertension Mother Other Cerebrovascular accident Social History Social History Social History: Surrogate medical decision maker: Codi Calle, son. Code status: Full code. Smoking packs per day: 1 Smoking cigarettes per day: 20.0 Smoking status: Current every day smoker Tobacco type: cigarettes Second hand tobacco smoke exposure: Yes Additional smoking assessment comments: Has smoked up to 2 packs a day. 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 There is no relevant family history pertinent to the presenting complaint. Exam 2 Const: General: cooperative, healthy appearing, comfortable, no acute distress and well nourished Nutritional Appearance: well nourished Orientation/consciousness: patient oriented x3 Limitations: no limitations HENMT: Head: normal to inspection, normocephalic and atraumatic Ears: hearing grossly normal bilaterally and external ears normal Face/Nose/Sinus: Normal external nose present, normal facial exam and face symmetric Face and sinus: normal facial exam and face symmetric Mouth: Yes lip normal Eyes: General: appearance normal, both eyes and all related structures Alignment and Position: alignment normal and position normal Periorbital: periorbital findings normal Eyelids: eyelids normal Pupils: Equal, round and reactive pupils present EOM: EOMs intact bilaterally Neck: Neck: normal visual inspection, full ROM and supple Chest: Chest palpation & inspection: normal inspection of the chest Resp: Effort & Inspection: normal respiratory effort and able to speak in complete sentences Auscultation: clear to auscultation bilaterally Cardio: Rate: regular rate Rhythm: regular rhythm Heart sounds: S1 normal heart sound present and S2 normal heart sound present GI: Inspection: normal to inspection Skin: General skin exam: normal color and no rashes or lesions noted Neuro: General: patient oriented x3 and moves all extremities Cranial nerves: Yes Equal, round and reactive pupils present Speech: normal speech Gait exam (Neuro): Normal gait present Extrem: General: normal to inspection, full ROM and no edema Right lower extremity: knee Details: normal to inspection, tenderness Location: of the medial joint line, normal ROM and knee ligament exam normal; no ecchymosis and no deformity, lower leg Details: normal to inspection; no tenderness, ankle Details: normal to inspection; no tenderness and no swelling and foot Details: normal capillary refill, normal to inspection, tenderness Location: of the dorsal foot Location: laterally, toes with normal ROM, vascular exam Details: dorsalis pedis pulse present and normal capillary refill and tendon exam Details: active flexion normal Location: of all toes and active extension normal Location: of all toes; no ecchymosis Psych: Appearance: grossly normal and well kempt Mental Status: mental status grossly normal Speech and movement: Normal speech and movement present Affect: normal affect Attitude: cooperative Thought process: Normal thought process present Course Course Emergency Course: Patient is aware of diagnosis, understands and agrees to treatment plan. Anticipatory guidance given. Patient agrees to follow-up as directed and is aw are of reasons to seek care at the emergency department. Portions of this record may have been created with voice recognition software Level of Care: Express Care Visit Vital Signs Vital signs: Vital Signs Temperature 36.2 C L 05/13/25 11:44 Pulse Rate 64 05/13/25 11:44 Respiratory Rate 16 05/13/25 11:44 Blood Pressure 188/79 H 05/13/25 11:44 Pulse Oximetry 98 05/13/25 11:44 Oxygen Delivery Room Air 05/13/25 11:44 Temperature 36.2 C L 05/13/25 11:44 Pulse Rate 64 05/13/25 11:44 Respiratory Rate 16 05/13/25 11:44 Blood Pressure 188/79 H 05/13/25 11:44 Pulse Oximetry 98 05/13/25 11:44 Oxygen Delivery Room Air 05/13/25 11:44 [facility] MDM Narrative Medical decision making narrative: Josue wrap applied to right knee. Toradol shot given. Pt well hydrated appearing, in no respiratory distress, hemodynamically stable. Recommend supportive care. The patient is stable at time of discharge the c linical impression was discussed and the patient was given the opportunity to ask questions, which were addressed as completely as possible given the information available at present. Anticipatory guidance and return to care precautions were discussed and the importance of primary care follow-up was stressed and encouraged. The patient voiced understanding of the plan, indications to return, and the need for follow-up. Exam findings show no acute concerns or changes Patient is appropriate for outpatient treatment and follow-up. Differential Diagnosis Differential Diagnosis: Differential diagnostic considerations for lower extremity injury include ankle sprain/strain, acute internal derangement of knee, fracture of femur, fracture of hip, puncture wound of foot, fracture of toe, fracture of ankle, tendon rupture (achilles/patellar/quadriceps). Medical Records I have reviewed the following patient records and this information was taken into consideration when formulating the assessment and plan.: previous clinic visits Imaging Data Radiologist's impression: Examination: XR knee RT min 4V, XR foot RT min 3V Clinical History: fall, pain with bearing weight Comparison: None Technique: 4 views right knee, 4 views right foot Findings/impression: Right knee: 1. No fracture, dislocation, or effusion. 2. Osteopenia. 3. Peripheral arterial disease. Right foot: 1. No fracture or dislocation. 2. Severe degenerative changes first toe MTP joint. Reviewed, dictated and finalized at location R. CHBOARD OPERATOR HELPER Discharge Plan Discharge Clinical Impression: Fall, Acute foot pain, Acute knee pain Patient Disposition: Home Condition: Stable Instructions: Fall Prevention for Older Adults (ED) Additional Instructions: Xray showed no fracture. Do not take ibuprofen for 24 hours since you received toradol today. Minimize activities that aggravate the condition The RICE protocol. Follow the RICE protocol as soon as possible after your injury: Rest your leg by not walking on it. Ice should be immediately applied to keep the swelling down. It can be used for 20 to 30 minutes, three or four times daily. Do not apply ice directly to your skin. Compression dressings, bandages or josue-wraps will immobilize and support your injured knee. Elevate your leg above the level of your heart as often as possible during the first 48 hours. Medication: Nonsteroidal anti-inflammatory drugs (NSAIDs) such as ibuprofen and naproxen can help control pain and swelling. Because they improve function by both reducing swelling and controlling pain, they are a better option for mild sprains than narcotic pain medicines. Please schedule a follow-up visit with your personal physician for further evaluation and treatment within 1week OR If your symptoms persist, change or worsen significantly before you can contact your personal physician then please, without delay, go to the emergency department for further evaluation. Patient Language: Divehi Prescriptions: No Action amiodarone 200 mg tablet 200 mg PO DAILY clopidogrel 75 mg tablet 75 mg PO DAILY Caltrate 1 tab-cap PO DAILY Centrum Silver Women 1 tab-cap PO DAILY atorvastatin 80 mg PO HS Rx Instructions: 80mg Entresto 24-26 mg Tablet 1 tablet PO Q12HR 30 Days Qty: 60 0RF Breztri Aerosphere 160-9-4.8 mcg/actuation HFA aerosol inhaler 2 inh inhalation BID Qty: 10.7 5RF alendronate 70 mg tablet 70 mg PO WEEKLY Qty: 12 3RF zolpidem 5 mg tablet 5 mg PO QHS PRN (Reason: sleep) Qty: 30 2RF meclizine 25 mg tablet 25 mg PO TID PRN (Reason: dizziness or vertigo) Qty: 30 0RF methocarbamol 750 mg tablet 750 mg PO TID PRN (Reason: muscle spasm) Qty: 30 0RF escitalopram oxalate 10 mg tablet See Rx Instructions .ROUTE .COMPLEX Qty: 90 3RF Dose Instruction: TAKE 1 TABLET EVERY DAY Rx Instructions: TAKE 1 TABLET EVERY DAY hydrocodone-acetaminophen 10-325 mg tablet 1 tablet PO Q6H PRN (Reason: pain) Qty: 20 0RF Follow-up/Referrals: Branden Doyle DO [Primary Care Provider, Internal Medicine] - 3 Days Moustapha Paredes MD [Physician, Orthopedics] - 3 Days Referral Note: Fall, knee pain no fracture Time of Disposition: 13:39
[2025-05-13] MEDS: KETOROLAC 30 MG/ML VIAL (*BKC) IM (13:40)
== END 2025-05-13 13:56 | disposition home or self-care (01) ==
PROVIDERS: Emergency Provider Nurse Practitioner Family; PCP Internal Medicine
DX: S89.92XA Unspecified injury of left lower leg, initial encounter (principal); X58.XXXA Exposure to other specified factors, initial encounter; W19.XXXA Unspecified fall, initial encounter; M19.071 Primary osteoarthritis, right ankle and foot; E78.5 Hyperlipidemia, unspecified; I50.9 Heart failure, unspecified; I25.10 Atherosclerotic heart disease of native coronary artery without angina pectoris; I11.0 Hypertensive heart disease with heart failure; Z95.2 Presence of prosthetic heart valve; Z95.1 Presence of aortocoronary bypass graft; F17.210 Nicotine dependence, cigarettes, uncomplicated
CPT/HCPCS: 73564; 73630; 99214; G0463; J1885